=== PATIENT | male | born 1940 | race Caucasian/White ===

== ENCOUNTER 2021-03-13 19:45 | Inpatient (IN) | payer MEDICARE, BC ==
[~2021-03-13] VITALS: Ht 190.5 cm; Wt 97.1 kg
[2021-03-13 20:00] VITALS: BP 127/85
[2021-03-13] MEDS ORDERED: MAG HYDROX/AL HYDROX/SIMETH 30 ML ORAL.SUSP PO PRN (21:30)
[2021-03-13] MEDS ORDERED: ACETAMINOPHEN 325 MG TABLET PO PRN (21:30)
[2021-03-13] MEDS ORDERED: METHYL SALICYLATE/MENTHOL TOPICAL OINTMENT 57GM TUBE. TP PRN (21:30)
[2021-03-13] MEDS ORDERED: MAGNESIUM HYDROXIDE 2,400 MG/30 ML ORAL.SUSP. PO PRN (21:30)
[2021-03-13] MEDS ORDERED: QUEtiapine 50 MG TABLET. PO PRN (21:45)
[2021-03-13] MEDS ORDERED: FURO40TA4 PO ×2 (21:50)
[2021-03-13] MEDS ORDERED: TRAZ150T49 PO (21:50)
[2021-03-13] MEDS ORDERED: MAGN400T5 PO (21:50)
[2021-03-13] MEDS ORDERED: METO2.5T PO (21:50)
[2021-03-13] MEDS ORDERED: ALLO100T PO (21:50)
[2021-03-13] MEDS ORDERED: POLY2500 PO (21:50)
[2021-03-13] MEDS ORDERED: BUSP10TA PO (21:50)
[2021-03-13] MEDS ORDERED: TAMS0.4C97 PO (21:50)
[2021-03-13] MEDS ORDERED: POTA10TA5 PO (21:50)
[2021-03-13] MEDS ORDERED: METO25TA4 PO (21:50)
[2021-03-13] MEDS ORDERED: MELA3TAB30 PO (21:50)
[2021-03-13] MEDS ORDERED: RIVA20TA2 PO (21:50)
[2021-03-13] MEDS ORDERED: QUET50TA5 PO ×2 (21:50)
[2021-03-13] MEDS ORDERED: FINA5TAB4 PO (21:50)
[2021-03-13] MEDS ORDERED: QUET100T4 PO (21:50)
[2021-03-13] MEDS ORDERED: OMEP20TA63 PO (21:50)
--- NOTE | 2021-03-13 21:50 | PDOC ---
Exam Note: Kevin Note: Please also refer to the separate dictated note~for this date of service dictated separately.~Patient seen individually. Discussed the patient with Nursing staff reviewed the chart.~Reviewed interim history and current functioning. Reviewed vital signs,~Labs/ Radiology~and current medications noted below. Continue current treatment with the changes noted in the dictated addendum note Current Medications: I have reviewed the current psychotropics carefully including drug interactions. Risk benefit ratio favors no change other than as noted in my dictated progress note. Diagnosis: Problems: (1) Major neurocognitive disorder due to Alzheimer's disease RONALD MENJIVAR MD March 13, 2021 21:50
[2021-03-13] MEDS: busPIRone 10 MG TABLET. PO SCH (23:55)
[2021-03-13] MEDS: QUEtiapine 100 MG TABLET. PO SCH (23:55)
[2021-03-13] MEDS: traZODone 150 MG TABLET. PO SCH (23:55)
[2021-03-13] MEDS: MELATONIN 3 MG TABLET PO SCH (23:55)
--- NOTE | 2021-03-13 23:56 | NUR ---
Admission Note with Justification for Admission to [facility] Patient admitted to [facility] for protective oversight for emergency stabilization of acute psychiatric crisis. Pt admitted from: [facility] where he had been admitted for injuries from a fall that he had 03/07. Mode of arrival: EMS Accompanied By: EMS Precipitating behaviors that initiated intake and admission: it was reported that patient has been agitated, aggressive, combative with cares, sundowning, impulsive, has "poor safety" and refused medications and vital signs. Description of failure of out patient attempts at stabilization in previous setting list behavior and medication trials: Patient has been to ER and hospitalized.since 03/07 at [facility]. He had been started on medications and had a neuro consult. Behaviors and assessment findings upon admission: Patient arrived via EMS at 1945. He had been given PRN IM zyprexa 5mg x2 for agitation prior to leaving [facility] with EMS. EMS stated that he was calm for most of the ride, upon arrival he was eager to get off of the gurney and impatient with staff unbuckling seatbelts. He has a history of being impulsive and does not follow directions for asking for assistance, ambulation, etc. [facility] nurse stated that patient had been impulsive at times and was "hitting at" staff, he required almost constant redirection and will need placement at discharge from [facility]. He is incontinent of urine and bowel most of the time but at times and requires set up help with meals. Prior to [facility] admission patient had been residing at a memory care unit and had an unwitnessed fall on 03/07 and was unable to return to facility because he is "too aggressive". He fractured his L1-L3 transverse process. Nurse stated that it was a "non-surgical repair". Patient has a small bruise on the back of his right shoulder, a scratch on his right arm near the shoulder and his buttox is reddened but skin is intact. Upon arrival patient was calm, impulsive but somewhat cooperative. After vital signs were obtained patient sat in day room with staff and had a snack. He was cooperative with LEARNING PROGRAM MANAGER with HS cares. Patient is alert and oriented to self only, disorganized. According to report received from [facility], patient cannot use a walker as an ambulation aid because he "randomly sits down" whether a chair is present or not. We will use wheelchair at this time, PT/OT consults ordered. Plan: Admit for protective oversight for adjustment and stabilization of medications, behaviors and mood. Intense treatment regimen including groups, medication adjustments, therapy, consistent regimen for ADL's, self care, and sleep hygiene. Daily monitoring by Inpatient staff, Psychiatry, and Medical Physician.
--- NOTE | 2021-03-14 00:17 | NUR ---
Patient asleep when nurse went to administer HS meds. Meds held at this time, will administer if patient wakes up during the night. Patient has been disorganized, calm and somewhat impulsive. SHAREMILKER reported that he was cooperative with HS cares.
[2021-03-14] MEDS: QUEtiapine 50 MG TABLET. PO PRN ×2 (05:11→12:31)
--- NOTE | 2021-03-14 05:25 | NUR ---
Patient uncooperative, refusing EKG. lips tight saying "no no no". RN asked for RT to try later today. Informed RN that if day RT is unable to obtain during dayshift, I would try again tonight.
--- NOTE | 2021-03-14 05:26 | NUR ---
Patient uncooperative this morning and growled at resp therapy when they came to do EKG. They will reschedule for later today. PRN seroquel given in chocolate pudding in preparation for morning lab draw. Patient very resistive with meds in pudding, consumed about half and then knocked remainder out of nurses hand.
--- NOTE | 2021-03-14 06:06 | NUR ---
unable to obtain urine sample. Patient was incontinent of urine upon arrival last night and was incontinent of urine this morning before he got up. Patient assisted to toilet and was unable to void.
[2021-03-14 06:07] VITALS: BP 97/66
[2021-03-14] MEDS: busPIRone 10 MG TABLET. PO SCH ×3 (08:47→20:12)
[2021-03-14 11:02] LABS: ALBUMIN 3.6 g/dL (3.4-5.0); CALCIUM 9.7 mg/dL (8.5-10.1); GFR 72.1; MAGNESIUM 2.2 mg/dL (1.8-2.4); TOTAL BILIRUBIN 1.3 mg/dL (0.2-1.0); TOTAL PROTEIN 7.2 g/dL (6.4-8.2)
[2021-03-14 11:05] LABS: BASO # 0.1 x10^3/uL (0.0-0.2); BASO % 1 % (0-3); EOS # 0.1 x10^3/uL (0.0-0.7); EOS % 1 % (0-3); HEMOGLOBIN 15.1 g/dL (13.0-17.5); LYMPH # 1.9 x10^3/uL (1.0-4.8); LYMPH % 15 % (24-48); MEAN CORPUSCULAR HEMOGLOBIN 30 pg (25-35); MEAN CORPUSCULAR HGB CONC 33 g/dL (31-37); MEAN CORPUSCULAR VOLUME 90 fL (79-100); MONO # 0.8 x10^3/uL (0.0-1.1); MONO % 7 % (0-9); NEUT # 9.4 x10^3uL (1.8-7.7); NEUT % 76 % (31-73); PLATELET COUNT 191 x10^3/uL (140-400); RED BLOOD COUNT 5.11 x10^6/uL (4.30-5.70); RED CELL DISTRIBUTION WIDTH 16.3 % (11.5-14.5); WHITE BLOOD COUNT 12.4 x10^3/uL (4.0-11.0)
[2021-03-14 11:08] LABS: POTASSIUM 5.6 mmol/L (3.5-5.1)
[2021-03-14] MEDS: METOPROLOL TART IMMED RELEASE 25 MG TABLET. PO SCH ×2 (12:15→20:13)
[2021-03-14] MEDS: TAMSULOSIN 0.4 MG CAP.ER.24H. PO SCH (12:31)
[2021-03-14] MEDS: FUROSEMIDE 40 MG TABLET PO SCH (12:31)
[2021-03-14] MEDS: FINASTERIDE 5 MG TABLET. PO SCH (12:31)
[2021-03-14] MEDS: POLYETHYLENE GLYCOL 3350 17 GM PACKET. PO SCH (12:31)
[2021-03-14] MEDS: ALLOPURINOL 100 MG TABLET. PO SCH ×2 (12:31→20:13)
[2021-03-14 13:28] LABS: PLATELET CLUMP PRESENT; PLT ESTIMATE ADEQUATE (ADEQUATE)
[2021-03-14 14:35] LABS: THYROID STIM HORMONE (TSH) 1.605 uIU/mL (0.358-3.740)
[2021-03-14 15:49] VITALS: BP 117/76
[2021-03-14 16:04] LABS: ALBUMIN 3.7 g/dL (3.4-5.0); ALBUMIN/GLOBULIN RATIO 0.9 (1.0-1.7); CALCIUM 9.9 mg/dL (8.5-10.1); CREATININE 1.6 mg/dL (0.7-1.3); GFR 41.9; POTASSIUM 5.9 mmol/L (3.5-5.1); TOTAL PROTEIN 7.6 g/dL (6.4-8.2)
[2021-03-14] MEDS ORDERED: RIVAROXABAN 10 MG TABLET. PO SCH (17:00)
[2021-03-14] MEDS: RIVAROXABAN 10 MG TABLET. PO SCH (17:30)
--- NOTE | 2021-03-14 18:08 | NUR ---
Pt very disorganized, word salad unable to make out what he is sayin, alert and oriented to self only. Patient does not sit for a long time he is always on the go, intrusive walking in and out of others rooms, taking things off others tray and eating or drinking them. Patient non-compliant with meds crushed however he will drink liquids without difficulty but must be closely monitored because he will throw the liquids. Patient uncooperative with cares he is very resistive when being changed, unable to get urine sample today as patient is incont will have to put patient on a schedule to toilet but may be difficult because he will get combative with cares. Patient put on the list to see Dr Lund for lab values; WBC 12.4 potassium 5.9 creat 1.6 D. Dimer 1.18 bun/creat ratio 110. Patient vitals wnl of baseline however metoprolol was held due to pulse 56 checked 3 times as of now the pulse is 80. Per patient patient is a DNR the order is in the system and it states his DNR status on the living will. [facility] has a separate form to be signed by the patient and witness patient stated when she comes she will sign it. Patient does not really sit long enough to finish meals but he will take a few quick bites then he is back up on his feet. Patient does have a reddened area in between buttocks due to incont of bowel barrier cream applied. Will continue to monitor patient. Addendum: 03/14/21 at 1825 by SWETHA PHELAN RN new prn order for zyprexa 2.5mg PO prn Q2 hours as needed for agitation not to exceed 10mg in 24 hours.
[2021-03-14] MEDS: traZODone 150 MG TABLET. PO SCH (20:12)
[2021-03-14] MEDS: QUEtiapine 100 MG TABLET. PO SCH (20:12)
[2021-03-14] MEDS: MELATONIN 3 MG TABLET PO SCH (20:12)
--- NOTE | 2021-03-14 20:55 | NUR ---
Patient would not go to room for EKG. RT managed to get patient to sit in chair, in day room but patient would not let shirt be raised. Patient then grabbed RT's hand and began squeezing. RT was able to get hand away before injured. Patient then began grabbing at wires and pulling them. RT decided to abort trying to obtain EKG before machine or self was injured. Notified patient's RN on situation, RN agreed to not try again at this time.
--- NOTE | 2021-03-14 21:00 | NUR ---
Patient is impulsive and intrusive, wandering and restless in the day room this evening. He is disorganized and very hard to verbally redirect as he has a very short attention span. Patient very resistive with HS medications which were provided crushed in apple juice. Nurse eventually gave patient a salty snack then provided applejuice with meds which he drank. RT was not able to perform admission EKG as patient became agitated when she attempted to remove his shirt to place leads.
--- NOTE | 2021-03-14 21:16 | NUR ---
According to medical record from [facility] patient had UA on 03/12 prior to admit and results were WNL.
--- NOTE | 2021-03-14 21:34 | CONS ---
DATE OF CONSULTATION: 03/14/2021 ATTENDING PHYSICIAN: Dr. Villalobos. We are asked to see this patient for medical consultation. HISTORY OF PRESENT ILLNESS: The patient is a 80-year-old gentleman who is at a halfway home in [place]. He is profoundly demented. He is rambling. He has been agitated, aggressive, combative at times, impulsive and refuses medications, and vital signs. He was sent here for further treatment and evaluation. PAST MEDICAL HISTORY: Significant for Alzheimer's dementia, chronic atrial fibrillation, permanent pacemaker, urinary retention, hypertension, vitamin D deficiency, hyperlipidemia, L1-L2 compression fracture, sleep apnea. ALLERGIES: He has no known drug allergies. CURRENT MEDICATIONS: Include albuterol, BuSpar, finasteride, Lasix daily, magnesium oxide, melatonin, metolazone, metoprolol, omeprazole, MiraLax, potassium, Seroquel, Xarelto 20 mg daily, Flomax and trazodone. SOCIAL HISTORY: He is a nonsmoker, nondrinker. 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 He has been a detention resident. FAMILY HISTORY: Unobtainable. REVIEW OF SYSTEMS: Entirely unobtainable. The patient unfortunately has no ability to communicate. PHYSICAL EXAMINATION: GENERAL: When I saw him, this is an elderly gentleman who is profoundly demented. INITIAL VITAL SIGNS: Showed a blood pressure of 127/85 mmHg. He is afebrile. Oxygen saturation 95% on room air. HEENT: Head is without trauma. Pupils are reactive. Sclerae nonicteric. Oropharynx is clear. NECK: Supple. LUNGS: Good breath sounds. CARDIOVASCULAR: Showed regular heart tones. No gallops. ABDOMEN: Soft. EXTREMITIES: Show trace edema of the lower extremities. There is some degenerative arthritis of the knees. He is ambulatory. There is no gait disturbance. NEUROLOGIC: Profoundly confused, unable to do a full neurologic exam due to the patient's dementia. PERTINENT LABORATORY STUDIES: Pending at this time. Most recently a week ago, he had normal electrolytes. Creatinine was 1.0 mg/dL. He had an echo in 2019 showing ejection fraction 60%. ASSESSMENT: 1. This 80-year-old gentleman with profound dementia. 2. Old cerebrovascular accident. 3. Permanent pacemaker. 4. Paroxysmal atrial fibrillation. 5. Essential hypertension. 6. Degenerative arthritis. 7. History of sleep apnea. RECOMMENDATIONS: 1. This patient is stable from a medical standpoint. 2. I have reviewed his medications. We should continue the same dosage. 3. I will await results of the lab test and review them. Thank you again for asking us to see the patient for medical consultation. We shall gladly follow along closely during his inpatient stay. DERIC DR: Dipti TID: [id number]
--- NOTE | 2021-03-14 22:15 | PDOC ---
Exam Note: Kevin Note: Please also refer to the separate dictated note~for this date of service dictated separately.~Patient seen individually. Discussed the patient with Nursing staff reviewed the chart.~Reviewed interim history and current functioning. Reviewed vital signs,~Labs/ Radiology~and current medications noted below. Continue current treatment with the changes noted in the dictated addendum note Assessment: Vital Signs/I&O: Vital Signs Date Time Temp Pulse Resp B/P (MAP) Pulse Ox O2 Delivery O2 Flow Rate FiO2 03/14/21 20:13 80 117/76 03/14/21 15:49 98.0 20 97 03/14/21 06:07 Room Air Labs: Laboratory Tests Test 03/14/21 10:20 03/14/21 15:25 White Blood Count 12.4 x10^3/uL (4.0-11.0) H Red Blood Count 5.11 x10^6/uL (4.30-5.70) Hemoglobin 15.1 g/dL (13.0-17.5) Hematocrit 46.0 % (39.0-53.0) Mean Corpuscular Volume 90 fL (79-100) Mean Corpuscular Hemoglobin 30 pg (25-35) Mean Corpuscular Hemoglobin Concent 33 g/dL (31-37) Red Cell Distribution Width 16.3 % (11.5-14.5) H Platelet Count 191 x10^3/uL (140-400) Neutrophils (%) (Auto) 76 % (31-73) H Lymphocytes (%) (Auto) 15 % (24-48) L Monocytes (%) (Auto) 7 % (0-9) Eosinophils (%) (Auto) 1 % (0-3) Basophils (%) (Auto) 1 % (0-3) Neutrophils # (Auto) 9.4 x10^3uL (1.8-7.7) H Lymphocytes # (Auto) 1.9 x10^3/uL (1.0-4.8) Monocytes # (Auto) 0.8 x10^3/uL (0.0-1.1) Eosinophils # (Auto) 0.1 x10^3/uL (0.0-0.7) Basophils # (Auto) 0.1 x10^3/uL (0.0-0.2) Platelet Estimate Adequate (ADEQUATE) Platelet Clumps, EDTA Present Giant Platelets Present Sodium Level 147 mmol/L (136-145) H 145 mmol/L (136-145) Potassium Level 5.6 mmol/L (3.5-5.1) H 5.9 mmol/L (3.5-5.1) H Chloride Level 109 mmol/L (98-107) H 109 mmol/L (98-107) H Carbon Dioxide Level 25 mmol/L (21-32) 25 mmol/L (21-32) Anion Gap 13 (6-14) 11 (6-14) Blood Urea Nitrogen 14 mg/dL (8-26) 18 mg/dL (8-26) Creatinine 1.0 mg/dL (0.7-1.3) 1.6 mg/dL (0.7-1.3) H Estimated GFR (Cockcroft-Gault) 72.1 41.9 BUN/Creatinine Ratio 14 (6-20) 11 (6-20) Glucose Level 150 mg/dL (70-99) H 110 mg/dL (70-99) H Calcium Level 9.7 mg/dL (8.5-10.1) 9.9 mg/dL (8.5-10.1) Magnesium Level 2.2 mg/dL (1.8-2.4) Iron Level 66 ug/dL (65-175) Total Iron Binding Capacity 208 ug/dL (250-450) L Iron Saturation 32 % (15-34) Total Bilirubin 1.3 mg/dL (0.2-1.0) H 1.0 mg/dL (0.2-1.0) Aspartate Amino Transferase (AST) 36 U/L (15-37) 26 U/L (15-37) Alanine Aminotransferase (ALT) 46 U/L (16-63) 44 U/L (16-63) Alkaline Phosphatase 34 U/L (46-116) L 35 U/L (46-116) L Total Protein 7.2 g/dL (6.4-8.2) 7.6 g/dL (6.4-8.2) Albumin 3.6 g/dL (3.4-5.0) 3.7 g/dL (3.4-5.0) Albumin/Globulin Ratio 1.0 (1.0-1.7) 0.9 (1.0-1.7) L Triglycerides Level 94 mg/dL (0-150) Cholesterol Level 183 mg/dL (0-200) LDL Cholesterol, Calculated 123 mg/dL (0-100) H VLDL Cholesterol, Calculated 18 mg/dL (0-40) Non-HDL Cholesterol Calculated 141 mg/dL (0-129) H HDL Cholesterol 42 mg/dL (40-60) Cholesterol/HDL Ratio 4.0 Thyroid Stimulating Hormone (TSH) 1.605 uIU/mL (0.358-3.740) D-Dimer (Domonique) 1.18 mg/L (0.00-0.50) H Current Medications: Meds: Laboratory Tests Test 03/14/21 10:20 03/14/21 15:25 White Blood Count 12.4 x10^3/uL Red Blood Count 5.11 x10^6/uL Hemoglobin 15.1 g/dL Hematocrit 46.0 % Mean Corpuscular Volume 90 fL Mean Corpuscular Hemoglobin 30 pg Mean Corpuscular Hemoglobin Concent 33 g/dL Red Cell Distribution Width 16.3 % Platelet Count 191 x10^3/uL Neutrophils (%) (Auto) 76 % Lymphocytes (%) (Auto) 15 % Monocytes (%) (Auto) 7 % Eosinophils (%) (Auto) 1 % Basophils (%) (Auto) 1 % Neutrophils # (Auto) 9.4 x10^3uL Lymphocytes # (Auto) 1.9 x10^3/uL Monocytes # (Auto) 0.8 x10^3/uL Eosinophils # (Auto) 0.1 x10^3/uL Basophils # (Auto) 0.1 x10^3/uL Platelet Estimate Adequate Platelet Clumps, EDTA Present Giant Platelets Present Sodium Level 147 mmol/L 145 mmol/L Potassium Level 5.6 mmol/L 5.9 mmol/L Chloride Level 109 mmol/L 109 mmol/L Carbon Dioxide Level 25 mmol/L 25 mmol/L Anion Gap 13 11 Blood Urea Nitrogen 14 mg/dL 18 mg/dL Creatinine 1.0 mg/dL 1.6 mg/dL Estimated GFR (Cockcroft-Gault) 72.1 41.9 BUN/Creatinine Ratio 14 11 Glucose Level 150 mg/dL 110 mg/dL Calcium Level 9.7 mg/dL 9.9 mg/dL Magnesium Level 2.2 mg/dL Iron Level 66 ug/dL Total Iron Binding Capacity 208 ug/dL Iron Saturation 32 % Total Bilirubin 1.3 mg/dL 1.0 mg/dL Aspartate Amino Transf (AST/SGOT) 36 U/L 26 U/L Alanine Aminotransferase (ALT/SGPT) 46 U/L 44 U/L Alkaline Phosphatase 34 U/L 35 U/L Total Protein 7.2 g/dL 7.6 g/dL Albumin 3.6 g/dL 3.7 g/dL Albumin/Globulin Ratio 1.0 0.9 Triglycerides Level 94 mg/dL Cholesterol Level 183 mg/dL LDL Cholesterol, Calculated 123 mg/dL VLDL Cholesterol, Calculated 18 mg/dL Non-HDL Cholesterol Calculated 141 mg/dL HDL Cholesterol 42 mg/dL Cholesterol/HDL Ratio 4.0 Thyroid Stimulating Hormone (TSH) 1.605 uIU/mL D-Dimer (Domonique) 1.18 mg/L Current Medications Medications (Trade) Dose Ordered Sig/Crista Route PRN Reason Start Time Stop Time Status Last Admin Dose Admin Acetaminophen (Tylenol) 650 mg PRN Q6HRS PRN PO MILD PAIN / TEMP > 100.3'F 03/13/21 21:30 Multi-Ingredient Ointment (Analgesic Trinity) 1 mikala PRN QID PRN TP MUSCLE PAIN 03/13/21 21:30 Al Hydroxide/Mg Hydroxide (Mylanta Plus Xs) 15 ml PRN AFTMEALHC PRN PO DYSPEPSIA 03/13/21 21:30 Magnesium Hydroxide (Milk Of Magnesia) 2,400 mg PRN QHS PRN PO CONSTIPATION 03/13/21 21:30 Buspirone HCl (Buspar) 10 mg TID PO 03/13/21 22:15 03/14/21 20:12 Quetiapine Fumarate (SEROquel) 50 mg PRN DAILY PRN PO prior to lab draws 03/13/21 21:45 03/14/21 12:31 Quetiapine Fumarate (SEROquel) 50 mg PRN Q6HRS PRN PO AGITATION 03/13/21 21:45 Quetiapine Fumarate (SEROquel) 100 mg HS PO 03/13/21 22:15 03/14/21 20:12 Trazodone HCl (Desyrel) 150 mg HS PO 03/13/21 22:15 03/14/21 20:12 Melatonin (Melatonin) 6 mg HS PO 03/13/21 22:15 03/14/21 20:12 Allopurinol (Zyloprim) 100 mg BID PO 03/14/21 12:15 03/14/21 20:13 Finasteride (Proscar) 5 mg DAILY PO 03/14/21 12:15 03/14/21 12:31 Furosemide (Lasix) 40 mg DAILY PO 03/14/21 12:15 03/14/21 12:31 Metoprolol Tartrate (Lopressor) 25 mg BID PO 03/14/21 12:15 03/14/21 20:13 Tamsulosin HCl (Flomax) 0.4 mg DAILY PO 03/14/21 12:15 03/14/21 12:31 Pantoprazole Sodium (Protonix) 40 mg DAILYAC PO 03/15/21 07:30 Polyethylene Glycol (miraLAX) 17 gm DAILY PO 03/14/21 12:00 03/14/21 12:31 Non-Formulary Medication (Potassium Chloride (Klor-Con 10)) 30 meq DAILY PO 03/15/21 09:00 UNV Rivaroxaban (Xarelto) 20 mg DAILYBFRSUP PO 03/14/21 17:00 03/14/21 17:30 DC Rivaroxaban (Xarelto) 20 mg DAILYBFRSUP PO 03/14/21 17:30 03/14/21 17:30 Olanzapine (ZyPREXA ZYDIS) 2.5 mg PRN Q2HR PRN PO PSYCHOSIS 03/14/21 18:45 Current Medications Medications (Trade) Dose Ordered Sig/Crista Route PRN Reason Start Time Stop Time Status Last Admin Dose Admin Allopurinol (Zyloprim) 100 mg BID PO 03/14/21 12:15 03/14/21 20:13 Finasteride (Proscar) 5 mg DAILY PO 03/14/21 12:15 03/14/21 12:31 Furosemide (Lasix) 40 mg DAILY PO 03/14/21 12:15 03/14/21 12:31 Metoprolol Tartrate (Lopressor) 25 mg BID PO 03/14/21 12:15 03/14/21 20:13 Tamsulosin HCl (Flomax) 0.4 mg DAILY PO 03/14/21 12:15 03/14/21 12:31 Polyethylene Glycol (miraLAX) 17 gm DAILY PO 03/14/21 12:00 03/14/21 12:31 Rivaroxaban (Xarelto) 20 mg DAILYBFRSUP PO 03/14/21 17:30 03/14/21 17:30 I have reviewed the current psychotropics carefully including drug interactions. Risk benefit ratio favors no change other than as noted in my dictated progress note. Diagnosis: Problems: (1) Major neurocognitive disorder due to Alzheimer's disease RONALD MENJIVAR MD March 14, 2021 22:15
--- NOTE | 2021-03-14 23:40 | HP ---
ADMIT DATE: 03/13/2021 PSYCHIATRIC ADMISSION HISTORY/EVALUATION This is a late entry date of service 03/13/2021, covers elements not covered in my initial note for 03/13/2021. I met with the patient the evening of 03/13/2021. IDENTIFYING DATA: The patient is a 80-year-old male referred to us from [facility] by his primary care physician on account of worsening confusion and agitation. He has been agitated, aggressive, combative with cares. He has significant sundowning and impulsive with poor safety awareness, refusing medications and vital signs. The patient's behaviors have been deemed dangerous, unmanageable at the facility, has failed outpatient psychiatric interventions resulting in this referral. CHIEF COMPLAINT: "We will go there." The patient is completely disorganized, confused. HISTORY OF PRESENT ILLNESS: The patient has a history of dementia, Alzheimer's, vascular type. He has been residing at the above facility for some time. Recently, he has been getting more agitated, aggressive, disruptive, labile in his mood, difficult to redirect. He has had sleep and appetite changes, paranoia. No active suicidal or homicidal ideation. PAST PSYCHIATRIC HISTORY: As above. MEDICAL HISTORY: Diverticulitis, benign prostatic hypertrophy, atrial fibrillation, urinary retention, hypertension, vitamin D deficiency, hyperlipidemia, lumbar 1-3 fracture, pacemaker in place, sleep apnea, history of repeated falls. ACCU-CHEKS: None. ALLERGIES: Negative. CODE STATUS: DNR. DIET: Regular. Takes medications crushed in chocolate pudding. Ambulates wheelchair, very unsteady, history of falls. UA needs to be collected. Since admission, the patient has refused his EKG, is resistive with medications in pudding, but does like to drink, so offered in drink. He is intrusive, wandering. Speech is word salad, disorganized, confused, very touching and grabbing at others, resistive with cares. Impulsive, standing up, unsteady gait, incontinent, unable to void for urine sample. CURRENT PSYCHOTROPICS: BuSpar 10 mg t.i.d., melatonin 5 mg at bedtime, Seroquel 100 mg at bedtime, trazodone 150 mg at bedtime, Seroquel 50 mg p.r.n. for lab draws and 50 mg q. 6 hours p.r.n. psychosis and agitation. FAMILY HISTORY: Noncontributory. SOCIAL HISTORY: No history of alcohol, drug abuse, physical, sexual or elder abuse. He is not known to be a perpetrator. REACTION TO HOSPITALIZATION: The patient is oblivious of this. ASSETS: Supportive, living at the above facility, supportive family. REVIEW OF SYSTEMS: No CV, , pulmonary, eye, ENT system symptoms on review. Reliability poor. MENTAL STATUS EXAMINATION: Oriented to himself. Insight, judgment, recent and remote memory, attention, concentration, fund of knowledge poor consistent with his diagnosis. ASSESSMENT: Major neurocognitive disorder; Alzheimer, vascular with delusion; depression, behavioral disturbance; anxiety disorder, unspecified; impulse control disorder, unspecified. Rest as above. PLAN: Admit to Geropsychiatry Unit at [facility]. I will see the patient daily individually from a psychiatric standpoint. Medical followup with Dr. Lund. Continue patient on his current psychotropics, observe baseline, and make further adjustments as clinically indicated. I will see him daily individually. Estimated length of stay 10-12 days. DISPOSITION: Plans back to long-term when stable. TALIB/MANOJ DR: Nazario TID: [id number]
[2021-03-15 01:07] LABS: THYROXINE 5.4 ug/dL (4.5-12.0)
[2021-03-15 05:32] VITALS: BP 107/70
[2021-03-15 05:38] LABS: HEMOGLOBIN A1C 5.4 % (4.8-5.6)
[2021-03-15] MEDS: POLYETHYLENE GLYCOL 3350 17 GM PACKET. PO SCH (08:00)
[2021-03-15] MEDS: busPIRone 10 MG TABLET. PO SCH ×3 (08:00→20:15)
[2021-03-15] MEDS: TAMSULOSIN 0.4 MG CAP.ER.24H. PO SCH (08:00)
[2021-03-15] MEDS: FUROSEMIDE 40 MG TABLET PO SCH (08:01)
[2021-03-15] MEDS: PANTOPRAZOLE 40 MG TABLET. PO SCH (08:01)
[2021-03-15] MEDS: METOPROLOL TART IMMED RELEASE 25 MG TABLET. PO SCH ×2 (08:01→20:16)
[2021-03-15] MEDS: FINASTERIDE 5 MG TABLET. PO SCH (08:01)
[2021-03-15] MEDS: ALLOPURINOL 100 MG TABLET. PO SCH ×2 (08:01→20:16)
[2021-03-15] MEDS ORDERED: POTASSIUM CHLORIDE 30 MEQ PO SCH (09:00)
[2021-03-15] MEDS: QUEtiapine 50 MG TABLET. PO PRN (14:02)
[2021-03-15 15:41] VITALS: BP 106/68
--- NOTE | 2021-03-15 16:42 | NUR ---
Pt continues to wander the unit very intrusive with personal space touches and grabs at others. Several staff members attempted to redirect patient verbally as well as attempted to distract patient but all attempts failed patient became more agitated and begin to pace unable to stay seated for meals or cares, patient was given prn zydis as well as seroquel today which was slightly effective calmed patient down shortly. Patient seems to have an appetite however his ability to sit and concentrate on finishing his meal is very short. Patient eats bits and pieces of meal then he is up wandering the unit. Patient vitals stable and wnl of baseline alert to self only speaks in word salad unable to understand patient. Patient called today to get an update she gave the password and update was given. Patient has no complaints of pain or discomfort to report will continue to monitor patient. Addendum: 03/15/21 at 1813 by SWETHA PHELAN RN Dr Villalobos gave telephone orders for divalproex sprinkles 125mg PO bid 0900 and 1700 to start a dose tonight then cbc cmp and vpa level in 3 days zoloft 50mg PO every morning.
[2021-03-15] MEDS: RIVAROXABAN 10 MG TABLET. PO SCH (17:00)
[2021-03-15] MEDS: QUEtiapine 100 MG TABLET. PO SCH (20:15)
[2021-03-15] MEDS: traZODone 150 MG TABLET. PO SCH (20:15)
[2021-03-15] MEDS: DIVALPROEX 125 MG CAP.SPRINK PO SCH (20:15)
[2021-03-15] MEDS: MELATONIN 3 MG TABLET PO SCH (20:16)
--- NOTE | 2021-03-15 22:12 | PDOC ---
Exam Note: Kevin Note: Please also refer to the separate dictated note~for this date of service dictated separately.~Patient seen individually. Discussed the patient with Nursing staff reviewed the chart.~Reviewed interim history and current functioning. Reviewed vital signs,~Labs/ Radiology~and current medications noted below. Continue current treatment with the changes noted in the dictated addendum note Assessment: Vital Signs/I&O: Vital Signs Date Time Temp Pulse Resp B/P (MAP) Pulse Ox O2 Delivery O2 Flow Rate FiO2 03/15/21 20:16 76 106/68 03/15/21 15:41 97.8 20 99 03/14/21 06:07 Room Air I & O 03/14/21 03/14/21 03/15/21 15:00 23:00 07:00 Intake Total 490 ml 240 ml Balance 490 ml 240 ml Current Medications: Meds: Current Medications Medications (Trade) Dose Ordered Sig/Crista Route PRN Reason Start Time Stop Time Status Last Admin Dose Admin Acetaminophen (Tylenol) 650 mg PRN Q6HRS PRN PO MILD PAIN / TEMP > 100.3'F 03/13/21 21:30 Multi-Ingredient Ointment (Analgesic [place]) 1 mikala PRN QID PRN TP MUSCLE PAIN 03/13/21 21:30 Al Hydroxide/Mg Hydroxide (Mylanta Plus Xs) 15 ml PRN AFTMEALHC PRN PO DYSPEPSIA 03/13/21 21:30 Magnesium Hydroxide (Milk Of Magnesia) 2,400 mg PRN QHS PRN PO CONSTIPATION 03/13/21 21:30 Buspirone HCl (Buspar) 10 mg TID PO 03/13/21 22:15 03/15/21 20:15 Quetiapine Fumarate (SEROquel) 50 mg PRN DAILY PRN PO prior to lab draws 03/13/21 21:45 03/15/21 14:02 Quetiapine Fumarate (SEROquel) 50 mg PRN Q6HRS PRN PO AGITATION 03/13/21 21:45 Quetiapine Fumarate (SEROquel) 100 mg HS PO 03/13/21 22:15 03/15/21 20:15 Trazodone HCl (Desyrel) 150 mg HS PO 03/13/21 22:15 03/15/21 20:15 Melatonin (Melatonin) 6 mg HS PO 03/13/21 22:15 03/15/21 20:16 Allopurinol (Zyloprim) 100 mg BID PO 03/14/21 12:15 03/15/21 20:16 Finasteride (Proscar) 5 mg DAILY PO 03/14/21 12:15 03/15/21 08:01 Furosemide (Lasix) 40 mg DAILY PO 03/14/21 12:15 03/15/21 08:01 Metoprolol Tartrate (Lopressor) 25 mg BID PO 03/14/21 12:15 03/15/21 20:16 Tamsulosin HCl (Flomax) 0.4 mg DAILY PO 03/14/21 12:15 03/15/21 08:00 Pantoprazole Sodium (Protonix) 40 mg DAILYAC PO 03/15/21 07:30 03/15/21 08:01 Polyethylene Glycol (miraLAX) 17 gm DAILY PO 03/14/21 12:00 03/15/21 08:00 Non-Formulary Medication (Potassium Chloride (Klor-Con 10)) 30 meq DAILY PO 03/15/21 09:00 03/15/21 10:26 DC Rivaroxaban (Xarelto) 20 mg DAILYBFRSUP PO 03/14/21 17:00 03/14/21 17:30 DC Rivaroxaban (Xarelto) 20 mg DAILYBFRSUP PO 03/14/21 17:30 03/15/21 17:00 Olanzapine (ZyPREXA ZYDIS) 2.5 mg PRN Q2HR PRN PO PSYCHOSIS 03/14/21 18:45 03/15/21 12:18 Divalproex Sodium (Depakote Sprinkles) 125 mg BID@0900,1700 PO 03/15/21 21:00 03/15/21 20:15 Sertraline HCl (Zoloft) 50 mg DAILY PO 03/16/21 09:00 Current Medications Medications (Trade) Dose Ordered Sig/Crista Route PRN Reason Start Time Stop Time Status Last Admin Dose Admin Pantoprazole Sodium (Protonix) 40 mg DAILYAC PO 03/15/21 07:30 03/15/21 08:01 Divalproex Sodium (Depakote Sprinkles) 125 mg BID@0900,1700 PO 03/15/21 21:00 5/30/21 20:15 I have reviewed the current psychotropics carefully including drug interactions. Risk benefit ratio favors no change other than as noted in my dictated progress note. Diagnosis: Problems: (1) Dementia in Alzheimer's disease with delusions (2) Dementia in Alzheimer's disease with depression (3) Dementia, vascular, with delusions (4) Dementia, vascular, with depression (5) Anxiety disorder, unspecified (6) Impulse control disorder, unspecified (7) Major neurocognitive disorder (8) Dementia of the Alzheimer's type with early onset with behavioral disturbance RONALD MENJIVAR MD March 15, 2021 22:12
[2021-03-16 06:21] VITALS: BP 89/56
--- NOTE | 2021-03-16 07:11 | PDOC ---
Exam Note: Kevin Note: This note is a late entry for 03/15/2021 covers elements not covered in my initial note. Subjective: The patient was seen individually in the evening of 03/15/2021 with Fransico BIRMINGHAM, discussed and reviewed the chart. The patient slept 6 hours previous night. He remains anxious, restless, agitated with cares and showers. He has been aggressive, paranoid, difficult to redirect. Received Zyprexa p.r.n. x2 and Seroquel x1. Review of Systems: Ambulation impaired in wheelchair. No CV, , pulmonary, eye, ENT system symptoms on review. Reliability poor. Mental Status Exam: The patient is oriented to himself. Insight and judgment, recent and remote memory, attention and concentration, fund of knowledge is poor consistent with his diagnoses. Laboratory Data: Reviewed. Impression: Major neurocognitive disorder Alzheimer vascular with delusion, depression, behavioral disturbance. Anxiety disorder unspecified. Impulse control disorder unspecified. Plan: Continue current psychotropics. Start Depakote Sprinkle 125 mg 9 a.m. and 5 p.m. Check CBC, CMP, valproic acid level in 3 days. Start Zoloft 50 mg a day for his mood and anxiety symptoms. Adjust further as clinically indicated. Assessment: Vital Signs/I&O: Vital Signs Date Time Temp Pulse Resp B/P (MAP) Pulse Ox O2 Delivery O2 Flow Rate FiO2 03/16/21 06:21 97.7 80 16 89/56 (67) 100 03/14/21 06:07 Room Air I & O 03/15/21 03/15/21 03/16/21 15:00 23:00 07:00 Intake Total 600 ml 240 ml Balance 600 ml 240 ml Current Medications: Meds: Current Medications Medications (Trade) Dose Ordered Sig/Crista Route PRN Reason Start Time Stop Time Status Last Admin Dose Admin Acetaminophen (Tylenol) 650 mg PRN Q6HRS PRN PO MILD PAIN / TEMP > 100.3'F 03/13/21 21:30 Multi-Ingredient Ointment (Analgesic [place]) 1 mikala PRN QID PRN TP MUSCLE PAIN 03/13/21 21:30 Al Hydroxide/Mg Hydroxide (Mylanta Plus Xs) 15 ml PRN AFTMEALHC PRN PO DYSPEPSIA 03/13/21 21:30 Magnesium Hydroxide (Milk Of Magnesia) 2,400 mg PRN QHS PRN PO CONSTIPATION 03/13/21 21:30 Buspirone HCl (Buspar) 10 mg TID PO 03/13/21 22:15 03/15/21 20:15 Quetiapine Fumarate (SEROquel) 50 mg PRN DAILY PRN PO prior to lab draws 03/13/21 21:45 03/15/21 14:02 Quetiapine Fumarate (SEROquel) 50 mg PRN Q6HRS PRN PO AGITATION 03/13/21 21:45 Quetiapine Fumarate (SEROquel) 100 mg HS PO 03/13/21 22:15 03/15/21 20:15 Trazodone HCl (Desyrel) 150 mg HS PO 03/13/21 22:15 03/15/21 20:15 Melatonin (Melatonin) 6 mg HS PO 03/13/21 22:15 03/15/21 20:16 Allopurinol (Zyloprim) 100 mg BID PO 03/14/21 12:15 03/15/21 20:16 Finasteride (Proscar) 5 mg DAILY PO 03/14/21 12:15 03/15/21 08:01 Furosemide (Lasix) 40 mg DAILY PO 03/14/21 12:15 03/15/21 08:01 Metoprolol Tartrate (Lopressor) 25 mg BID PO 03/14/21 12:15 03/15/21 20:16 Tamsulosin HCl (Flomax) 0.4 mg DAILY PO 03/14/21 12:15 03/15/21 08:00 Pantoprazole Sodium (Protonix) 40 mg DAILYAC PO 03/15/21 07:30 03/15/21 08:01 Polyethylene Glycol (miraLAX) 17 gm DAILY PO 03/14/21 12:00 03/15/21 08:00 Non-Formulary Medication (Potassium Chloride (Klor-Con 10)) 30 meq DAILY PO 03/15/21 09:00 03/15/21 10:26 DC Rivaroxaban (Xarelto) 20 mg DAILYBFRSUP PO 03/14/21 17:00 03/14/21 17:30 DC Rivaroxaban (Xarelto) 20 mg DAILYBFRSUP PO 03/14/21 17:30 03/15/21 17:00 Olanzapine (ZyPREXA ZYDIS) 2.5 mg PRN Q2HR PRN PO PSYCHOSIS 03/14/21 18:45 03/15/21 12:18 Divalproex Sodium (Depakote Sprinkles) 125 mg BID@0900,1700 PO 03/15/21 21:00 03/15/21 20:15 Sertraline HCl (Zoloft) 50 mg DAILY PO 03/16/21 09:00 Current Medications Medications (Trade) Dose Ordered Sig/Crista Route PRN Reason Start Time Stop Time Status Last Admin Dose Admin Pantoprazole Sodium (Protonix) 40 mg DAILYAC PO 03/15/21 07:30 03/15/21 08:01 Divalproex Sodium (Depakote Sprinkles) 125 mg BID@0900,1700 PO 03/15/21 21:00 03/15/21 20:15 I have reviewed the current psychotropics carefully including drug interactions. Risk benefit ratio favors no change other than as noted in my dictated progress note. 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
[2021-03-16] MEDS: POLYETHYLENE GLYCOL 3350 17 GM PACKET. PO SCH (08:47)
[2021-03-16] MEDS: busPIRone 10 MG TABLET. PO SCH ×3 (08:48→19:31)
[2021-03-16] MEDS: FINASTERIDE 5 MG TABLET. PO SCH (08:48)
[2021-03-16] MEDS: DIVALPROEX 125 MG CAP.SPRINK PO SCH ×2 (08:48→17:27)
[2021-03-16] MEDS: PANTOPRAZOLE 40 MG TABLET. PO SCH (08:48)
[2021-03-16] MEDS: METOPROLOL TART IMMED RELEASE 25 MG TABLET. PO SCH ×3 (08:48→20:36)
[2021-03-16] MEDS: ALLOPURINOL 100 MG TABLET. PO SCH ×2 (08:48→19:31)
[2021-03-16] MEDS: SERTRALINE 50 MG TABLET. PO SCH (08:48)
[2021-03-16] MEDS: TAMSULOSIN 0.4 MG CAP.ER.24H. PO SCH (08:48)
[2021-03-16] MEDS: FUROSEMIDE 40 MG TABLET PO SCH (09:00)
--- NOTE | 2021-03-16 10:30 | NUR ---
ACTIVITY THERAPY ASSESSMENT completed based on notes, observation and interview. Pt was wandering in the hallway. Pt was unable to answer assessment questions and talked in word salad. Pt is intrusive and impulsive at times. Pt attended an Activity Therapy group and wandered the entire time and was intrusive as he kept grabbing AT's arm. Per notes pt is resistive with medications and cares. Pt growled at staff when trying to get an EKG. Pt requires a lot of redirection and prompting. Initial goal aimed to increase engagement and relaxation skills. Pt will participate in at least three individual or group Activity Therapy sessions before discharge. Addendum: 03/30/21 at 1323 by MOHAMUD DOLAN ACT 03/30-repeat goal
[2021-03-16 16:03] VITALS: BP 120/61
[2021-03-16] MEDS: RIVAROXABAN 10 MG TABLET. PO SCH (17:27)
--- NOTE | 2021-03-16 17:30 | NUR ---
NSG NOTE; PT CONT TO WANDER THE HALLS, GOING INTO OTHER PT'S ROOMS. HE IS RESISTIVE TO CARES AND REDIRECTION. HE DID NOT SIT DOWN FOR A MEAL AND ANY ATTEMPT TO HAND HIM FOOD RESULTING IN HIM JUST WANDERING AWAY AND PUTTING THE FOOD DOWN. HE WOULD TAKE DRINKS OFF OF OTHER PEER'S TRAYS RESULTING IN HIM BEING REMOVED FROM THE DINING ROOM AT [facility]. HE HAS DRANK A LOT OF FLUIDS TODAY WHEN WE JUST HOLD UP A GLASS WITHOUT FORCING IT ON HIM. HE TOUCHES PEOPLE CONSTANTLY BUT NOT IN A SEXUAL MANNER. HE TALKS GIBBERISH AND CANNOT TELL ME HIS NAME. HE DOES NOT FOLLOW DIRECTIONS
[2021-03-16] MEDS: traZODone 150 MG TABLET. PO SCH (19:30)
[2021-03-16] MEDS: MELATONIN 3 MG TABLET PO SCH (19:30)
[2021-03-16] MEDS: QUEtiapine 100 MG TABLET. PO SCH (19:31)
[2021-03-16 20:35] VITALS: BP 95/54
--- NOTE | 2021-03-16 22:24 | PDOC ---
Exam Note: Kevin Note: Please also refer to the separate dictated note~for this date of service dictated separately.~Patient seen individually. Discussed the patient with Nursing staff reviewed the chart.~Reviewed interim history and current functioning. Reviewed vital signs,~Labs/ Radiology~and current medications noted below. Continue current treatment with the changes noted in the dictated addendum note Assessment: Vital Signs/I&O: Vital Signs Date Time Temp Pulse Resp B/P (MAP) Pulse Ox O2 Delivery O2 Flow Rate FiO2 03/16/21 20:36 84 95/54 03/16/21 16:03 97.5 20 95 03/14/21 06:07 Room Air I & O 03/15/21 03/15/21 03/16/21 15:00 23:00 07:00 Intake Total 600 ml 240 ml Balance 600 ml 240 ml Current Medications: Meds: Current Medications Medications (Trade) Dose Ordered Sig/Crista Route PRN Reason Start Time Stop Time Status Last Admin Dose Admin Acetaminophen (Tylenol) 650 mg PRN Q6HRS PRN PO MILD PAIN / TEMP > 100.3'F 03/13/21 21:30 Multi-Ingredient Ointment (Analgesic [place]) 1 mikala PRN QID PRN TP MUSCLE PAIN 03/13/21 21:30 Al Hydroxide/Mg Hydroxide (Mylanta Plus Xs) 15 ml PRN AFTMEALHC PRN PO DYSPEPSIA 03/13/21 21:30 Magnesium Hydroxide (Milk Of Magnesia) 2,400 mg PRN QHS PRN PO CONSTIPATION 03/13/21 21:30 Buspirone HCl (Buspar) 10 mg TID PO 03/13/21 22:15 03/16/21 19:31 Quetiapine Fumarate (SEROquel) 50 mg PRN DAILY PRN PO prior to lab draws 03/13/21 21:45 03/15/21 14:02 Quetiapine Fumarate (SEROquel) 50 mg PRN Q6HRS PRN PO AGITATION 03/13/21 21:45 Quetiapine Fumarate (SEROquel) 100 mg HS PO 03/13/21 22:15 03/16/21 19:31 Trazodone HCl (Desyrel) 150 mg HS PO 03/13/21 22:15 03/16/21 19:30 Melatonin (Melatonin) 6 mg HS PO 03/13/21 22:15 03/16/21 19:30 Allopurinol (Zyloprim) 100 mg BID PO 03/14/21 12:15 03/16/21 19:31 Finasteride (Proscar) 5 mg DAILY PO 03/14/21 12:15 03/16/21 08:48 Furosemide (Lasix) 40 mg DAILY PO 03/14/21 12:15 03/16/21 09:00 Metoprolol Tartrate (Lopressor) 25 mg BID PO 03/14/21 12:15 03/16/21 08:48 Tamsulosin HCl (Flomax) 0.4 mg DAILY PO 03/14/21 12:15 03/16/21 08:48 Pantoprazole Sodium (Protonix) 40 mg DAILYAC PO 03/15/21 07:30 03/16/21 08:48 Polyethylene Glycol (miraLAX) 17 gm DAILY PO 03/14/21 12:00 03/16/21 08:47 Non-Formulary Medication (Potassium Chloride (Klor-Con 10)) 30 meq DAILY PO 03/15/21 09:00 03/15/21 10:26 DC Rivaroxaban (Xarelto) 20 mg DAILYBFRSUP PO 03/14/21 17:00 03/14/21 17:30 DC Rivaroxaban (Xarelto) 20 mg DAILYBFRSUP PO 03/14/21 17:30 03/16/21 17:27 Olanzapine (ZyPREXA ZYDIS) 2.5 mg PRN Q2HR PRN PO PSYCHOSIS 03/14/21 18:45 03/16/21 14:43 Divalproex Sodium (Depakote Sprinkles) 125 mg BID@0900,1700 PO 03/15/21 21:00 03/16/21 17:27 Sertraline HCl (Zoloft) 50 mg DAILY PO 03/16/21 09:00 03/16/21 08:48 Current Medications Medications (Trade) Dose Ordered Sig/Crista Route PRN Reason Start Time Stop Time Status Last Admin Dose Admin Sertraline HCl (Zoloft) 50 mg DAILY PO 03/16/21 09:00 03/16/21 08:48 I have reviewed the current psychotropics carefully including drug interactions. Risk benefit ratio favors no change other than as noted in my dictated progress note. 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
--- NOTE | 2021-03-16 22:24 | PDOC ---
Exam Note: Kevin Note: This note is a late entry for 03/14/2021 covers elements not covered in my initial note. Subjective: The patient was seen individually in the evening of 03/14/2021 with Fransico BIRMINGHAM, discussed and reviewed the chart. The patient slept 6-1/2 hours previous night. He has been confused, anxious, restless, wandering the hallways, swatting meds out of the nursing staffs hands. He threw the cup at the nursing staff, intermittently aggressive during bathing and cares. Review of Systems: Ambulation impaired in wheelchair. No CV, , pulmonary, eye, ENT system symptoms on review. Reliability poor. Mental Status Exam: The patient is oriented to himself. Insight and judgment, recent and remote memory, attention and concentration, fund of knowledge is poor consistent with his diagnoses. Laboratory Data: Reviewed. Impression: Major neurocognitive disorder Alzheimer vascular with delusion, depression, behavioral disturbance. Anxiety disorder unspecified. Impulse control disorder unspecified. Plan: Continue BuSpar, melatonin, Seroquel, trazodone at current dosage. Consider Depakote as a mood stabilizer. Assessment: Vital Signs/I&O: Vital Signs Date Time Temp Pulse Resp B/P (MAP) Pulse Ox O2 Delivery O2 Flow Rate FiO2 03/16/21 20:36 84 95/54 03/16/21 16:03 97.5 20 95 03/14/21 06:07 Room Air I & O 03/15/21 03/15/21 03/16/21 15:00 23:00 07:00 Intake Total 600 ml 240 ml Balance 600 ml 240 ml Current Medications: Meds: Current Medications Medications (Trade) Dose Ordered Sig/Crista Route PRN Reason Start Time Stop Time Status Last Admin Dose Admin Acetaminophen (Tylenol) 650 mg PRN Q6HRS PRN PO MILD PAIN / TEMP > 100.3'F 03/13/21 21:30 Multi-Ingredient Ointment (Analgesic [place]) 1 mikala PRN QID PRN TP MUSCLE PAIN 03/13/21 21:30 Al Hydroxide/Mg Hydroxide (Mylanta Plus Xs) 15 ml PRN AFTMEALHC PRN PO DYSPEPSIA 03/13/21 21:30 Magnesium Hydroxide (Milk Of Magnesia) 2,400 mg PRN QHS PRN PO CONSTIPATION 03/13/21 21:30 Buspirone HCl (Buspar) 10 mg TID PO 03/13/21 22:15 03/16/21 19:31 Quetiapine Fumarate (SEROquel) 50 mg PRN DAILY PRN PO prior to lab draws 03/13/21 21:45 03/15/21 14:02 Quetiapine Fumarate (SEROquel) 50 mg PRN Q6HRS PRN PO AGITATION 03/13/21 21:45 Quetiapine Fumarate (SEROquel) 100 mg HS PO 03/13/21 22:15 03/16/21 19:31 Trazodone HCl (Desyrel) 150 mg HS PO 03/13/21 22:15 03/16/21 19:30 Melatonin (Melatonin) 6 mg HS PO 03/13/21 22:15 03/16/21 19:30 Allopurinol (Zyloprim) 100 mg BID PO 03/14/21 12:15 03/16/21 19:31 Finasteride (Proscar) 5 mg DAILY PO 03/14/21 12:15 03/16/21 08:48 Furosemide (Lasix) 40 mg DAILY PO 03/14/21 12:15 03/16/21 09:00 Metoprolol Tartrate (Lopressor) 25 mg BID PO 03/14/21 12:15 03/16/21 08:48 Tamsulosin HCl (Flomax) 0.4 mg DAILY PO 03/14/21 12:15 03/16/21 08:48 Pantoprazole Sodium (Protonix) 40 mg DAILYAC PO 03/15/21 07:30 03/16/21 08:48 Polyethylene Glycol (miraLAX) 17 gm DAILY PO 03/14/21 12:00 03/16/21 08:47 Non-Formulary Medication (Potassium Chloride (Klor-Con 10)) 30 meq DAILY PO 03/15/21 09:00 03/15/21 10:26 DC Rivaroxaban (Xarelto) 20 mg DAILYBFRSUP PO 03/14/21 17:00 03/14/21 17:30 DC Rivaroxaban (Xarelto) 20 mg DAILYBFRSUP PO 03/14/21 17:30 03/16/21 17:27 Olanzapine (ZyPREXA ZYDIS) 2.5 mg PRN Q2HR PRN PO PSYCHOSIS 03/14/21 18:45 03/16/21 14:43 Divalproex Sodium (Depakote Sprinkles) 125 mg BID@0900,1700 PO 03/15/21 21:00 03/16/21 17:27 Sertraline HCl (Zoloft) 50 mg DAILY PO 03/16/21 09:00 03/16/21 08:48 Current Medications Medications (Trade) Dose Ordered Sig/Crista Route PRN Reason Start Time Stop Time Status Last Admin Dose Admin Sertraline HCl (Zoloft) 50 mg DAILY PO 03/16/21 09:00 03/16/21 08:48 I have reviewed the current psychotropics carefully including drug interactions. Risk benefit ratio favors no change other than as noted in my dictated progress note. 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
--- NOTE | 2021-03-16 23:28 | NUR ---
Pt wandering in the hallway when approached. Pt disorganized, restless, and confused. Pt resistive with HS medications, refusing to take them crushed in liquids. I attempted to administer them crushed in chocolate ice cream after pt told staff that he would eat ice cream, but pt refused to eat it. After several attempts, pt finally took medications crushed in vanilla ice cream.
[2021-03-17 06:14] VITALS: BP 98/60
[2021-03-17] MEDS: ALLOPURINOL 100 MG TABLET. PO SCH ×2 (08:02→19:54)
[2021-03-17] MEDS: SERTRALINE 50 MG TABLET. PO SCH (08:03)
[2021-03-17] MEDS: DIVALPROEX 125 MG CAP.SPRINK PO SCH ×2 (08:03→13:55)
[2021-03-17] MEDS: TAMSULOSIN 0.4 MG CAP.ER.24H. PO SCH (08:03)
[2021-03-17] MEDS: busPIRone 10 MG TABLET. PO SCH ×2 (08:03→13:55)
[2021-03-17] MEDS: PANTOPRAZOLE 40 MG TABLET. PO SCH (08:03)
[2021-03-17] MEDS: FINASTERIDE 5 MG TABLET. PO SCH (08:03)
[2021-03-17] MEDS: POLYETHYLENE GLYCOL 3350 17 GM PACKET. PO SCH (08:04)
[2021-03-17] MEDS: METOPROLOL TART IMMED RELEASE 25 MG TABLET. PO SCH ×2 (08:04→20:00)
[2021-03-17] MEDS: FUROSEMIDE 40 MG TABLET PO SCH (08:04)
--- NOTE | 2021-03-17 13:08 | NUR ---
WEEKLY ACTIVITY THERAPY NOTE Date of Admission: 03/13/21 Date of AT Assessment: 03/16 Precipitating behaviors that initiated intake and admission:it was reported that patient has been agitated, aggressive, combative with cares, sundowning, impulsive, has "poor safety" and refused medications and vital signs. Goal aimed:increase engagement and relaxation skills Initial Goal:Pt will participate in at least three individual or group Activity Therapy sessions before discharge. Weekly progress towards goal: Goal evaluation begins next week Group participation level: none Weekly highlights: arrived on [facility] Behaviors observed: wandering and intrusive, resistive with staff Plan: Goal evaluation begins next week Beneficial adaptations:
--- NOTE | 2021-03-17 13:20 | NUR ---
PSYCHOSOCIAL ASSESSMENT ADMISSION DATE: 03/13/21 CONTACT INFORMATION: DPOA/Guardian Contact Name: Lila Grigsby Contact Address: [address]; [place] [address] Contact Phone #: ETHNIC ORIGIN: REASONS FOR ADMISSION: Aggressive Combative Confusion/Disoriented Poor impulse control ADDITIONAL ADMISSION COMMENTS: According to the intake, pt is agitated, aggressive/combative at times of care, sundowning, impulsive, poor safety, refuses medications and vital signs. REASON FOR ADMISSION IN PATIENT/FAMILY'S OWN WORDS: Decline in cognition based off his Dementia prognosis. PATIENT/FAMILY EXPECTATIONS FOR ADMISSION: Medication and behavioral management LIVING SITUATION: Patient lives with: Memory Care Other living arrangements: Contact Name: [facility] Contact Address: [address] [facility], [address]; [place] [address] Contact Phone #: Contact Fax #: FAMILY RELATIONS: Marital Status: # of Marriages: 1 # of Children: 0 [facility] Family Support: Concerned Cooperative Involved in DC Planning Additional Comments r/t Family: Pt met his through a mutual friend. "he was dating my roommate and decided I was a better fit for him". The two have been for 56 years this month. They do not have any children despite all efforts but have many nieces and nephews they treat as children. SIGNIFICANT PSYCHIATRIC/MEDICAL HISTORY: Psychiatric/Treatment History: This is pt first admission to [facility] Pertinent Family History: None noted; father passed with heart trouble HISTORICAL DATA: Childhood Environment: [place] Nurturing Supportive Childhood Environment Additional Comments: Pt grew up in [place] until he was 12 years old and his father moved them to a small town in [place]. Pt father was a teacher, who changed careers to work in the [email or web address]. Pt father from heart trouble and his mother moved them back to [place] closer to family. Pt is one of six siblings in which his older brother has . 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 Past/Present Interests/Hobbies: planes motorcycles used to love sports played golf Financial support/resources: Long Term/Pension Monthly income: Person handling finances: Pt handles all pt finances Do you have a history of legal problems: N Cultural considerations: None SOCIAL RELATIONSHIPS-CURRENT/PAST: Psychiatrist: None PCP: Dr. Arron Flores Counselor/Therapist: None [facility]: None Support Group: None [employer] Cut[employer] Press Operator/Digital Print Operator: None Other relationships: Staff at [facility] STRENGTHS & WEAKNESSES: Patient's strengths: Good family support Ambulatory Approachable Other patient strengths: Patient's weaknesses: Impulsive Health problems Physically Aggressive Other patient weaknesses: PRELIMINARY PLAN OF TREATMENT: Preliminary plan: Promote Coping Skill Medication Stabilization Monitor Med Effects Dec. Outbursts Dec. Aggression Other preliminary treatment comments: DISCHARGE PLANNING: Discharge planning/disposition: Placement Needed Additional discharge needs identified: Referrals to a higher level of care ADDITIONAL INFORMATION: Other Pertinent Data: PSA was completed with pt , Lila. Lila reports that she has reached out to a couple different places for placement and hopes within the next week or so she will be able to make a decision as to where pt will be able to discharge. The concern about pt discharge to [facility] is that they will not be able to care for pt as his disease progresses. At this time, Lila has looked at [place], [facility] and has ruled out [facility]. DARSHANA will work on placement options with pt and has also scheduled a few visits for the following week. Pt did want to clarify, in treatment team, she mentioned that pt had been in 5 different places; however,she meant that pt has been in 1 different facility with 4 different hospital stays. DARSHANA will pass this on to the team.
[2021-03-17] MEDS: RIVAROXABAN 10 MG TABLET. PO SCH (13:56)
--- NOTE | 2021-03-17 17:42 | NUR ---
NSG NOTE; SHIFT SUMMARY Wicho/Tomas wandered a little less today, sitting for short periods in the dayroom and dining room. He is not eating much at meals but did eat some of his roll with meat inside. His diet was changed to finger foods which he can manage easier while moving around. He drinks well, preferring water, ice tea and juice over the milky type of Ensure. Clear Ensure were ordered from the kitchen in hopes he will like it. He is still intrusive at times, especially in the crowded dining room, less so in the dayroom. He is alert and confused, resisting any hands-on attempts to redirect him. He does not follow directions.
[2021-03-17] MEDS: QUEtiapine 100 MG TABLET. PO SCH (19:54)
[2021-03-17] MEDS: traZODone 150 MG TABLET. PO SCH (19:54)
[2021-03-17] MEDS: MELATONIN 3 MG TABLET PO SCH (19:56)
--- NOTE | 2021-03-17 21:54 | PDOC ---
Exam Note: Kevin Note: Please also refer to the separate dictated note~for this date of service dictated separately.~Patient seen individually. Discussed the patient with Nursing staff reviewed the chart.~Reviewed interim history and current functioning. Reviewed vital signs,~Labs/ Radiology~and current medications noted below. Continue current treatment with the changes noted in the dictated addendum note Assessment: Vital Signs/I&O: Vital Signs Date Time Temp Pulse Resp B/P (MAP) Pulse Ox O2 Delivery O2 Flow Rate FiO2 03/17/21 20:00 99 124/64 03/17/21 06:14 97.1 18 97 03/14/21 06:07 Room Air I & O 03/16/21 03/16/21 03/17/21 15:00 23:00 07:00 Intake Total 1080 ml 120 ml Balance 1080 ml 120 ml Current Medications: Meds: Current Medications Medications (Trade) Dose Ordered Sig/Crista Route PRN Reason Start Time Stop Time Status Last Admin Dose Admin Acetaminophen (Tylenol) 650 mg PRN Q6HRS PRN PO MILD PAIN / TEMP > 100.3'F 03/13/21 21:30 Multi-Ingredient Ointment (Analgesic Majestic) 1 mikala PRN QID PRN TP MUSCLE PAIN 03/13/21 21:30 Al Hydroxide/Mg Hydroxide (Mylanta Plus Xs) 15 ml PRN AFTMEALHC PRN PO DYSPEPSIA 03/13/21 21:30 Magnesium Hydroxide (Milk Of Magnesia) 2,400 mg PRN QHS PRN PO CONSTIPATION 03/13/21 21:30 Buspirone HCl (Buspar) 10 mg TID PO 03/13/21 22:15 03/17/21 14:18 DC 03/17/21 13:55 Quetiapine Fumarate (SEROquel) 50 mg PRN DAILY PRN PO prior to lab draws 03/13/21 21:45 03/15/21 14:02 Quetiapine Fumarate (SEROquel) 50 mg PRN Q6HRS PRN PO AGITATION 03/13/21 21:45 Quetiapine Fumarate (SEROquel) 100 mg HS PO 03/13/21 22:15 03/17/21 19:54 Trazodone HCl (Desyrel) 150 mg HS PO 03/13/21 22:15 03/17/21 19:54 Melatonin (Melatonin) 6 mg HS PO 03/13/21 22:15 03/17/21 19:56 Allopurinol (Zyloprim) 100 mg BID PO 03/14/21 12:15 03/17/21 19:54 Finasteride (Proscar) 5 mg DAILY PO 03/14/21 12:15 03/17/21 08:03 Furosemide (Lasix) 40 mg DAILY PO 03/14/21 12:15 03/16/21 09:00 Metoprolol Tartrate (Lopressor) 25 mg BID PO 03/14/21 12:15 03/17/21 20:00 Tamsulosin HCl (Flomax) 0.4 mg DAILY PO 03/14/21 12:15 03/17/21 08:03 Pantoprazole Sodium (Protonix) 40 mg DAILYAC PO 03/15/21 07:30 03/17/21 08:03 Polyethylene Glycol (miraLAX) 17 gm DAILY PO 03/14/21 12:00 03/17/21 08:04 Non-Formulary Medication (Potassium Chloride (Klor-Con 10)) 30 meq DAILY PO 03/15/21 09:00 03/15/21 10:26 DC Rivaroxaban (Xarelto) 20 mg DAILYBFRSUP PO 03/14/21 17:00 03/14/21 17:30 DC Rivaroxaban (Xarelto) 20 mg DAILYBFRSUP PO 03/14/21 17:30 03/17/21 13:56 Olanzapine (ZyPREXA ZYDIS) 2.5 mg PRN Q2HR PRN PO PSYCHOSIS 03/14/21 18:45 03/17/21 09:26 Divalproex Sodium (Depakote Sprinkles) 125 mg BID@0900,1700 PO 03/15/21 21:00 03/17/21 13:55 Sertraline HCl (Zoloft) 50 mg DAILY PO 03/16/21 09:00 03/17/21 08:03 I have reviewed the current psychotropics carefully including drug interactions. Risk benefit ratio favors no change other than as noted in my dictated progress note. Diagnosis: Problems: (1) Impulse control disorder, unspecified (2) Anxiety disorder, unspecified (3) Dementia, vascular, with depression (4) Dementia, vascular, with delusions (5) Dementia in Alzheimer's disease with depression (6) Dementia in Alzheimer's disease with delusions (7) Dementia of the Alzheimer's type with early onset with behavioral d isturbance (8) Major neurocognitive disorder RONALD MENJIVAR MD Mar 17, 2021 21:54
--- NOTE | 2021-03-18 00:39 | NUR ---
Pt wandering in hallway when approached. Pt confused, disorganized, and resistive with re-direction. Pt took medications crushed and hidden in vanilla ice cream.
[2021-03-18 06:09] VITALS: BP 104/68
--- NOTE | 2021-03-18 06:51 | PDOC ---
Exam Note: Kevin Note: This note is a late entry for 03/16/2021 covers elements not covered in my initial note. Subjective: The patient was seen individually in the evening of 03/16/2021 with Miroslava BIRMINGHAM, discussed and reviewed the chart. The patient slept 5 hours previous night. He has been confused, wandering. Review of Systems: Ambulation impaired in wheelchair. No CV, , pulmonary, eye, ENT system symptoms on review. Reliability poor. Mental Status Exam: The patient is oriented to himself. Speech is gibberish, somewhat intrusive with cares, wanders into others rooms, difficult to redirect at times. Insight and judgment, recent and remote memory, attention and concentration, fund of knowledge is poor consistent with his diagnoses. Laboratory Data: Reviewed. Impression: Major neurocognitive disorder Alzheimer vascular with delusion, depression, behavioral disturbance. Anxiety disorder unspecified. Impulse control disorder unspecified. Plan: Continue current psychotropics from initial note. Assessment: Vital Signs/I&O: Vital Signs Date Time Temp Pulse Resp B/P (MAP) Pulse Ox O2 Delivery O2 Flow Rate FiO2 03/18/21 06:09 98.0 82 20 104/68 (80) 98 Room Air I & O 03/17/21 03/17/21 03/18/21 15:00 23:00 07:00 Intake Total 720 ml 120 ml 120 ml Balance 720 ml 120 ml 120 ml Current Medications: Meds: Current Medications Medications (Trade) Dose Ordered Sig/Crista Route PRN Reason Start Time Stop Time Status Last Admin Dose Admin Acetaminophen (Tylenol) 650 mg PRN Q6HRS PRN PO MILD PAIN / TEMP > 100.3'F 03/13/21 21:30 Multi-Ingredient Ointment (Analgesic [place]) 1 mikala PRN QID PRN TP MUSCLE PAIN 03/13/21 21:30 Al Hydroxide/Mg Hydroxide (Mylanta Plus Xs) 15 ml PRN AFTMEALHC PRN PO DYSPEPSIA 03/13/21 21:30 Magnesium Hydroxide (Milk Of Magnesia) 2,400 mg PRN QHS PRN PO CONSTIPATION 03/13/21 21:30 Buspirone HCl (Buspar) 10 mg TID PO 03/13/21 22:15 03/17/21 14:18 DC 03/17/21 13:55 Quetiapine Fumarate (SEROquel) 50 mg PRN DAILY PRN PO prior to lab draws 03/13/21 21:45 03/15/21 14:02 Quetiapine Fumarate (SEROquel) 50 mg PRN Q6HRS PRN PO AGITATION 03/13/21 21:45 Quetiapine Fumarate (SEROquel) 100 mg HS PO 03/13/21 22:15 03/17/21 19:54 Trazodone HCl (Desyrel) 150 mg HS PO 03/13/21 22:15 03/17/21 19:54 Melatonin (Melatonin) 6 mg HS PO 03/13/21 22:15 03/17/21 19:56 Allopurinol (Zyloprim) 100 mg BID PO 03/14/21 12:15 03/17/21 19:54 Finasteride (Proscar) 5 mg DAILY PO 03/14/21 12:15 03/17/21 08:03 Furosemide (Lasix) 40 mg DAILY PO 03/14/21 12:15 03/16/21 09:00 Metoprolol Tartrate (Lopressor) 25 mg BID PO 03/14/21 12:15 03/17/21 20:00 Tamsulosin HCl (Flomax) 0.4 mg DAILY PO 03/14/21 12:15 03/17/21 08:03 Pantoprazole Sodium (Protonix) 40 mg DAILYAC PO 03/15/21 07:30 03/17/21 08:03 Polyethylene Glycol (miraLAX) 17 gm DAILY PO 03/14/21 12:00 03/17/21 08:04 Non-Formulary Medication (Potassium Chloride (Klor-Con 10)) 30 meq DAILY PO 03/15/21 09:00 03/15/21 10:26 DC Rivaroxaban (Xarelto) 20 mg DAILYBFRSUP PO 03/14/21 17:00 03/14/21 17:30 DC Rivaroxaban (Xarelto) 20 mg DAILYBFRSUP PO 03/14/21 17:30 03/17/21 13:56 Olanzapine (ZyPREXA ZYDIS) 2.5 mg PRN Q2HR PRN PO PSYCHOSIS 03/14/21 18:45 03/17/21 09:26 Divalproex Sodium (Depakote Sprinkles) 125 mg BID@0900,1700 PO 03/15/21 21:00 03/17/21 13:55 Sertraline HCl (Zoloft) 50 mg DAILY PO 03/16/21 09:00 03/17/21 08:03 I have reviewed the current psychotropics carefully including drug interactions. Risk benefit ratio favors no change other than as noted in my dictated progress note. Diagnosis: Problems: (1) Impulse control disorder, unspecified (2) Anxiety disorder, unspecified (3) Dementia, vascular, with depression (4) Dementia, vascular, with delusions (5) Dementia in Alzheimer's disease with depression (6) Dementia in Alzheimer's disease with delusions (7) Dementia of the Alzheimer's type with early onset with behavioral disturbance (8) Major neurocognitive disorder RONALD MENJIVAR MD Mar 18, 2021 06:51
--- NOTE | 2021-03-18 07:27 | PDOC ---
Exam Note: Kevin Note: This note is a late entry for 03/17/2021 covers elements not covered in my initial note. Subjective: The patient was reviewed in the morning of 03/17/2021 for a treatment team meeting with Amalia Campos, Madina Aguilar and Kerline (social director), Guadalupe, activity therapy and Mark BIRMING[place]AM, discussed and reviewed the chart. The patient slept 7 hours previous night. His attended the treatment team meeting. He has been confused, grabbing at nursing staffs arms, oblivious of his strength. Previous night it took 4 people to shower him. Today he has done a little better. Appetite is poor. Review of Systems: Ambulation impaired in wheelchair. No CV, , pulmonary, eye, ENT system symptoms on review. Reliability poor. Mental Status Exam: The patient is oriented to himself. Insight and judgment, recent and remote memory, attention and concentration, fund of knowledge is poor consistent with his diagnoses. Laboratory Data: Reviewed. Impression: Major neurocognitive disorder Alzheimer vascular with delusion, depression, behavioral disturbance. Anxiety disorder unspecified. Impulse control disorder unspecified. Plan: We will go ahead and stop the BuSpar. is concerned about multiple psychotropics he is taking. We are adjusting Depakote to reach therapeutic level with labs and valproic acid level to be checked on 03/19. Maintain Zoloft at current dosage, melatonin, Seroquel, trazodone along with Zyprexa p.r.n. Adjust further as clinically indicated. Assessment: Vital Signs/I&O: Vital Signs Date Time Temp Pulse Resp B/P (MAP) Pulse Ox O2 Delivery O2 Flow Rate FiO2 03/18/21 06:09 98.0 82 20 104/68 (80) 98 Room Air I & O 03/17/21 03/17/21 03/18/21 15:00 23:00 07:00 Intake Total 720 ml 120 ml 120 ml Balance 720 ml 120 ml 120 ml Current Medications: Meds: Current Medications Medications (Trade) Dose Ordered Sig/Crista Route PRN Reason Start Time Stop Time Status Last Admin Dose Admin Acetaminophen (Tylenol) 650 mg PRN Q6HRS PRN PO MILD PAIN / TEMP > 100.3'F 03/13/21 21:30 Multi-Ingredient Ointment (Analgesic Coleman) 1 mikala PRN QID PRN TP MUSCLE PAIN 03/13/21 21:30 Al Hydroxide/Mg Hydroxide (Mylanta Plus Xs) 15 ml PRN AFTMEALHC PRN PO DYSPEPSIA 03/13/21 21:30 Magnesium Hydroxide (Milk Of Magnesia) 2,400 mg PRN QHS PRN PO CONSTIPATION 03/13/21 21:30 Buspirone HCl (Buspar) 10 mg TID PO 03/13/21 22:15 03/17/21 14:18 DC 03/17/21 13:55 Quetiapine Fumarate (SEROquel) 50 mg PRN DAILY PRN PO prior to lab draws 03/13/21 21:45 03/15/21 14:02 Quetiapine Fumarate (SEROquel) 50 mg PRN Q6HRS PRN PO AGITATION 03/13/21 21:45 Quetiapine Fumarate (SEROquel) 100 mg HS PO 03/13/21 22:15 03/17/21 19:54 Trazodone HCl (Desyrel) 150 mg HS PO 03/13/21 22:15 03/17/21 19:54 Melatonin (Melatonin) 6 mg HS PO 03/13/21 22:15 03/17/21 19:56 Allopurinol (Zyloprim) 100 mg BID PO 03/14/21 12:15 03/17/21 19:54 Finasteride (Proscar) 5 mg DAILY PO 03/14/21 12:15 03/17/21 08:03 Furosemide (Lasix) 40 mg DAILY PO 03/14/21 12:15 03/16/21 09:00 Metoprolol Tartrate (Lopressor) 25 mg BID PO 03/14/21 12:15 03/17/21 20:00 Tamsulosin HCl (Flomax) 0.4 mg DAILY PO 03/14/21 12:15 03/17/21 08:03 Pantoprazole Sodium (Protonix) 40 mg DAILYAC PO 03/15/21 07:30 03/17/21 08:03 Polyethylene Glycol (miraLAX) 17 gm DAILY PO 03/14/21 12:00 03/17/21 08:04 Non-Formulary Medication (Potassium Chloride (Klor-Con 10)) 30 meq DAILY PO 03/15/21 09:00 03/15/21 10:26 DC Rivaroxaban (Xarelto) 20 mg DAILYBFRSUP PO 03/14/21 17:00 03/14/21 17:30 DC Rivaroxaban (Xarelto) 20 mg DAILYBFRSUP PO 03/14/21 17:30 03/17/21 13:56 Olanzapine (ZyPREXA ZYDIS) 2.5 mg PRN Q2HR PRN PO PSYCHOSIS 03/14/21 18:45 03/17/21 09:26 Divalproex Sodium (Depakote Sprinkles) 125 mg BID@0900,1700 PO 03/15/21 21:00 03/17/21 13:55 Sertraline HCl (Zoloft) 50 mg DAILY PO 03/16/21 09:00 03/17/21 08:03 I have reviewed the current psychotropics carefully including drug interactions. Risk benefit ratio favors no change other than as noted in my dictated progress note. Diagnosis: Problems: (1) Impulse control disorder, unspecified (2) Anxiety disorder, unspecified (3) Dementia, vascular, with depression (4) Dementia, vascular, with delusions (5) Dementia in Alzheimer's disease with depression (6) Dementia in Alzheimer's disease with delusions (7) Dementia of the Alzheimer's type with early onset with behavioral disturbance (8) Major neurocognitive disorder RONALD MENJIVAR MD Mar 18, 2021 07:27
[2021-03-18] MEDS: POLYETHYLENE GLYCOL 3350 17 GM PACKET. PO SCH (08:59)
[2021-03-18] MEDS: FUROSEMIDE 40 MG TABLET PO SCH (09:00)
[2021-03-18] MEDS: DIVALPROEX 125 MG CAP.SPRINK PO SCH ×2 (09:00→17:12)
[2021-03-18] MEDS: SERTRALINE 50 MG TABLET. PO SCH (09:00)
[2021-03-18] MEDS: ALLOPURINOL 100 MG TABLET. PO SCH ×2 (09:00→20:15)
[2021-03-18] MEDS: PANTOPRAZOLE 40 MG TABLET. PO SCH (09:00)
[2021-03-18] MEDS: FINASTERIDE 5 MG TABLET. PO SCH (09:00)
[2021-03-18] MEDS: METOPROLOL TART IMMED RELEASE 25 MG TABLET. PO SCH ×2 (09:00→20:16)
[2021-03-18] MEDS: TAMSULOSIN 0.4 MG CAP.ER.24H. PO SCH (09:00)
[2021-03-18 15:32] VITALS: BP 118/81
[2021-03-18] MEDS: QUEtiapine 50 MG TABLET. PO PRN (17:12)
[2021-03-18] MEDS: RIVAROXABAN 10 MG TABLET. PO SCH (17:13)
--- NOTE | 2021-03-18 17:52 | NUR ---
Patient wanders halls and has very brief rest periods, diet was changed to finger foods because he is unable to sit and focus on finishing his meals. Patient is very intrusive with personal space he does grab and touch a lot not in an inappropriate manner. Patient does have a good appetite and will eat when offered meals but just cannot focus on finishing them. Patient takes his meds crushed in liquids with lots of ice and will drink the entire cup. Multiple attempts to redirect patient verbally and he was given seroquel 50mg prn at 1730 for increase agitation medication slightly effective patient is more calm still wandering but not aggressive or agitated. Patient vitals wnl and stable alert x1 self only speaks in word salad, patient called for an update password was given and update provided. No complaints of pain or discomfort to report Dr Oneal and Dr Villalobos rounded on patient no new orders, will continue to monitor patient.
[2021-03-18] MEDS: QUEtiapine 100 MG TABLET. PO SCH (20:15)
[2021-03-18] MEDS: traZODone 150 MG TABLET. PO SCH (20:16)
[2021-03-18] MEDS: MELATONIN 3 MG TABLET PO SCH (20:16)
--- NOTE | 2021-03-18 22:03 | PDOC ---
Exam Note: Kevin Note: Please also refer to the separate dictated note~for this date of service dictated separately.~Patient seen individually. Discussed the patient with Nursing staff reviewed the chart.~Reviewed interim history and current functioning. Reviewed vital signs,~Labs/ Radiology~and current medications noted below. Continue current treatment with the changes noted in the dictated addendum note Assessment: Vital Signs/I&O: Vital Signs Date Time Temp Pulse Resp B/P (MAP) Pulse Ox O2 Delivery O2 Flow Rate FiO2 03/18/21 20:16 80 118/81 03/18/21 15:32 97.6 18 100 03/18/21 06:09 Room Air I & O 03/17/21 03/17/21 03/18/21 15:00 23:00 07:00 Intake Total 720 ml 120 ml 120 ml Balance 720 ml 120 ml 120 ml Current Medications: Meds: Current Medications Medications (Trade) Dose Ordered Sig/Crista Route PRN Reason Start Time Stop Time Status Last Admin Dose Admin Acetaminophen (Tylenol) 650 mg PRN Q6HRS PRN PO MILD PAIN / TEMP > 100.3'F 03/13/21 21:30 Multi-Ingredient Ointment (Analgesic [place]) 1 mikala PRN QID PRN TP MUSCLE PAIN 03/13/21 21:30 Al Hydroxide/Mg Hydroxide (Mylanta Plus Xs) 15 ml PRN AFTMEALHC PRN PO DYSPEPSIA 03/13/21 21:30 Magnesium Hydroxide (Milk Of Magnesia) 2,400 mg PRN QHS PRN PO CONSTIPATION 03/13/21 21:30 Buspirone HCl (Buspar) 10 mg TID PO 03/13/21 22:15 03/17/21 14:18 DC 03/17/21 13:55 Quetiapine Fumarate (SEROquel) 50 mg PRN DAILY PRN PO prior to lab draws 03/13/21 21:45 03/18/21 17:12 Quetiapine Fumarate (SEROquel) 50 mg PRN Q6HRS PRN PO AGITATION 03/13/21 21:45 Quetiapine Fumarate (SEROquel) 100 mg HS PO 03/13/21 22:15 03/18/21 20:15 Trazodone HCl (Desyrel) 150 mg HS PO 03/13/21 22:15 03/18/21 20:16 Melatonin (Melatonin) 6 mg HS PO 03/13/21 22:15 03/18/21 20:16 Allopurinol (Zyloprim) 100 mg BID PO 03/14/21 12:15 03/18/21 20:15 Finasteride (Proscar) 5 mg DAILY PO 03/14/21 12:15 03/18/21 09:00 Furosemide (Lasix) 40 mg DAILY PO 03/14/21 12:15 03/18/21 09:00 Metoprolol Tartrate (Lopressor) 25 mg BID PO 03/14/21 12:15 03/18/21 20:16 Tamsulosin HCl (Flomax) 0.4 mg DAILY PO 03/14/21 12:15 03/18/21 09:00 Pantoprazole Sodium (Protonix) 40 mg DAILYAC PO 03/15/21 07:30 03/18/21 09:00 Polyethylene Glycol (miraLAX) 17 gm DAILY PO 03/14/21 12:00 03/18/21 08:59 Non-Formulary Medication (Potassium Chloride (Klor-Con 10)) 30 meq DAILY PO 03/15/21 09:00 03/15/21 10:26 DC Rivaroxaban (Xarelto) 20 mg DAILYBFRSUP PO 03/14/21 17:00 03/14/21 17:30 DC Rivaroxaban (Xarelto) 20 mg DAILYBFRSUP PO 03/14/21 17:30 03/18/21 17:13 Olanzapine (ZyPREXA ZYDIS) 2.5 mg PRN Q2HR PRN PO PSYCHOSIS 03/14/21 18:45 03/17/21 09:26 Divalproex Sodium (Depakote Sprinkles) 125 mg BID@0900,1700 PO 03/15/21 21:00 03/18/21 17:12 Sertraline HCl (Zoloft) 50 mg DAILY PO 03/16/21 09:00 03/18/21 09:00 I have reviewed the current psychotropics carefully including drug interactions. Risk benefit ratio favors no change other than as noted in my dictated progress note. Diagnosis: Problems: (1) Impulse control disorder, unspecified (2) Anxiety disorder, unspecified (3) Dementia, vascular, with depression (4) Dementia, vascular, with delusions (5) Dementia in Alzheimer's disease with depression (6) Dementia in Alzheimer's disease with delusions (7) Dementia of the Alzheimer's type with early onset with behavioral disturbance (8) Major neurocognitive disorder RONALD MENJIVAR MD Mar 18, 2021 22:03
--- NOTE | 2021-03-19 03:43 | NUR ---
Nursing Note Pt wanders the unit, speaking in a word salad. No agitation if left alone, when I attempted to scan his armband for meds, he was resistive and was telling me off in a word salad rant. He uses hand gestures like he is frustrated and angry at me, but all words coming out of his mouth are not related to each other. Pt eats snacks in the day room, meds are in a drink which he tolerated well. Now sleeping.
[2021-03-19 06:10] VITALS: BP 129/88
[2021-03-19] MEDS: DIVALPROEX 125 MG CAP.SPRINK PO SCH ×2 (08:05→16:56)
[2021-03-19] MEDS: METOPROLOL TART IMMED RELEASE 25 MG TABLET. PO SCH ×2 (08:05→19:59)
[2021-03-19] MEDS: FINASTERIDE 5 MG TABLET. PO SCH (08:06)
[2021-03-19] MEDS: SERTRALINE 50 MG TABLET. PO SCH (08:06)
[2021-03-19] MEDS: ALLOPURINOL 100 MG TABLET. PO SCH ×2 (08:06→19:59)
[2021-03-19] MEDS: FUROSEMIDE 40 MG TABLET PO SCH (08:06)
[2021-03-19] MEDS: PANTOPRAZOLE 40 MG TABLET. PO SCH (08:06)
[2021-03-19] MEDS: POLYETHYLENE GLYCOL 3350 17 GM PACKET. PO SCH (08:06)
[2021-03-19] MEDS: TAMSULOSIN 0.4 MG CAP.ER.24H. PO SCH (08:06)
[2021-03-19 12:38] LABS: BASO # 0.1 x10^3/uL (0.0-0.2); BASO % 1 % (0-3); EOS # 0.1 x10^3/uL (0.0-0.7); EOS % 1 % (0-3); HEMATOCRIT 40.1 % (39.0-53.0); HEMOGLOBIN 13.3 g/dL (13.0-17.5); LYMPH # 1.4 x10^3/uL (1.0-4.8); LYMPH % 16 % (24-48); MEAN CORPUSCULAR HEMOGLOBIN 30 pg (25-35); MEAN CORPUSCULAR HGB CONC 33 g/dL (31-37); MEAN CORPUSCULAR VOLUME 91 fL (79-100); MONO # 0.7 x10^3/uL (0.0-1.1); MONO % 7 % (0-9); NEUT # 6.9 x10^3uL (1.8-7.7); NEUT % 75 % (31-73); PLATELET COUNT 237 x10^3/uL (140-400); RED BLOOD COUNT 4.43 x10^6/uL (4.30-5.70); RED CELL DISTRIBUTION WIDTH 16.3 % (11.5-14.5); WHITE BLOOD COUNT 9.1 x10^3/uL (4.0-11.0)
--- NOTE | 2021-03-19 13:19 | NUR ---
NURSING NOTE PT WANDERING, CONFUSED, ANXIOUS, RESISTIVE WITH CARES. RESISTIVE WITH LAB DRAW. PT TOOK SEVERAL ATTEMPTS TO TAKE MEDICATIONS CRUSHED IN PUDDING BUT DID FINALLY TAKE THEM. PT WANDERS IN HALLWAY, DAYROOM, AND DINNING ROOM. PT TOOK A DRINK OFF ANOTHER PATIENTS TRAY THIS AM AND ATTEMPT TO DRINK IT. PT NEEDS ASSISTANCE WITH MEALS. WILL CONTINUE TO MONITOR. VINNIE STARKS.
[2021-03-19 13:46] LABS: ALBUMIN 3.5 g/dL (3.4-5.0); ALBUMIN/GLOBULIN RATIO 0.9 (1.0-1.7); ALK PHOS 29 U/L (46-116); ALT (SGPT) 28 U/L (16-63); ANION GAP 11 (6-14); AST (SGOT) 17 U/L (15-37); BLOOD UREA NITROGEN 21 mg/dL (8-26); BUN/CREATININE RATIO 19 (6-20); CALCIUM 9.5 mg/dL (8.5-10.1); CARBON DIOXIDE 27 mmol/L (21-32); CHLORIDE 109 mmol/L (98-107); CREATININE 1.1 mg/dL (0.7-1.3); GFR 64.6; GLUCOSE 120 mg/dL (70-99); POTASSIUM 5.5 mmol/L (3.5-5.1); SODIUM 147 mmol/L (136-145); TOTAL BILIRUBIN 1.4 mg/dL (0.2-1.0); TOTAL PROTEIN 7.2 g/dL (6.4-8.2); VAL ACID 17 mcg/mL (50-100)
--- NOTE | 2021-03-19 16:49 | TX PLAN ---
Interdisciplinary Tx Plan Admission Information March 13, 2021 at 19:45 Legal Status (on Admission): Voluntary DPOA/Guardian Name: Lila Grigsby Contact Other Contact Name: [facility] Other Contact Verified Code Status: DNR Allergies: Coded Allergies: No Known Drug Allergies (Unverified , 03/13/21) Diagnoses Primary Diagnosis: Major neurocognitive D/O, vascular Alzheimer's with delusions, depression with BD Reasons for Admission: Aggressive, Combative, Confusion/Disoriented, Poor impulse control Problem in Patient's Words: Decline in cognition based off his Dementia prognosis. Additional Admission Comments: According to the intake, pt is agitated, aggressive/combative at times of care, sundowning, impulsive, poor safety, refuses medications and vital signs. Problems Active Problems: Sundowning Impulsive Restless Resistive with Cares Agitated Wandering Inactive Problems: None Pt Strengths/Limitations Ability for [place]: Poor Cognitive Functioning/Ability: Poor Communication Skills/Ability: Poor Financial Resources: Good Insight/Judgement: Poor Intellectual Ability: Poor Physical Health: Poor Social Skills: Poor Stability in Family: Good Stability in School/Work: Poor Verbal Skills: Poor Discharge Criteria Discharge Criteria: No need for close observ., Adequate arrangements @DC, Improved behavior, Improved mood/thought Preliminary Discharge Plan Preliminary DC Plan: Placement Needed Special Precautions Fall Risk: Low Initial D/C Plan Pt will be sent to a Memory Care facility once stable. Identified Discharge Needs: Referrals to a higher level of care Currently Utilized Resources Currently Utilized Resources/P: Primary Care Physician Identified Problems/Hx/Goals Objectives/Short-Term Goals Short Term Goals: Dec. Aggression, Dec. Outbursts, Medication Stabilization, Monitor Med Effects, Promote Coping Skill Short Term Goals in Patient's: N/A Interventions/Frequency Staff Interventions/Frequency&: Psychiatrist to assess pt at least 3x per week for medication management. Social Work to assess pt at least 2x per week to identify barriers to care and finalize discharge planning. Nursing to assess medication effects, behavior modification and completion of 15 minute checks daily. Encourage participation in group activities (if applicable) or 1:1 engagement based off activity dept. goals. 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 Community Follow-up Primary Care Physician Community Provider/Family Inpu: Pt participated in treatement team via telephone. Treatment Plan Explained Patient/Media Intern had this treatment plan explained to him/her as indicated by the signature below and has been given the opportunity to ask questions and make suggestions: Date: Patient/Media Intern Signature: Patient/Media Intern Decline: No (Family is active in pt care.) ALBERT ULLOA Mar 19, 2021 16:49
[2021-03-19] MEDS: RIVAROXABAN 10 MG TABLET. PO SCH (16:56)
[2021-03-19] MEDS: MELATONIN 3 MG TABLET PO SCH (19:58)
[2021-03-19] MEDS: traZODone 150 MG TABLET. PO SCH (19:59)
[2021-03-19] MEDS: QUEtiapine 100 MG TABLET. PO SCH (19:59)
--- NOTE | 2021-03-19 21:55 | PDOC ---
Exam Note: Kevin Note: Please also refer to the separate dictated note~for this date of service dictated separately.~Patient seen individually. Discussed the patient with Nursing staff reviewed the chart.~Reviewed interim history and current functioning. Reviewed vital signs,~Labs/ Radiology~and current medications noted below. Continue current treatment with the changes noted in the dictated addendum note Assessment: Vital Signs/I&O: Vital Signs Date Time Temp Pulse Resp B/P (MAP) Pulse Ox O2 Delivery O2 Flow Rate FiO2 03/19/21 19:59 79 129/88 03/19/21 06:10 97.0 18 100 Room Air I & O 03/18/21 03/18/21 03/19/21 15:00 23:00 07:00 Intake Total 480 ml 360 ml Balance 480 ml 360 ml Labs: Laboratory Tests Test 03/19/21 11:42 White Blood Count 9.1 x10^3/uL (4.0-11.0) Red Blood Count 4.43 x10^6/uL (4.30-5.70) Hemoglobin 13.3 g/dL (13.0-17.5) Hematocrit 40.1 % (39.0-53.0) Mean Corpuscular Volume 91 fL (79-100) Mean Corpuscular Hemoglobin 30 pg (25-35) Mean Corpuscular Hemoglobin Concent 33 g/dL (31-37) Red Cell Distribution Width 16.3 % (11.5-14.5) H Platelet Count 237 x10^3/uL (140-400) Neutrophils (%) (Auto) 75 % (31-73) H Lymphocytes (%) (Auto) 16 % (24-48) L Monocytes (%) (Auto) 7 % (0-9) Eosinophils (%) (Auto) 1 % (0-3) Basophils (%) (Auto) 1 % (0-3) Neutrophils # (Auto) 6.9 x10^3uL (1.8-7.7) Lymphocytes # (Auto) 1.4 x10^3/uL (1.0-4.8) Monocytes # (Auto) 0.7 x10^3/uL (0.0-1.1) Eosinophils # (Auto) 0.1 x10^3/uL (0.0-0.7) Basophils # (Auto) 0.1 x10^3/uL (0.0-0.2) Sodium Level 147 mmol/L (136-145) H Potassium Level 5.5 mmol/L (3.5-5.1) H Chloride Level 109 mmol/L (98-107) H Carbon Dioxide Level 27 mmol/L (21-32) Anion Gap 11 (6-14) Blood Urea Nitrogen 21 mg/dL (8-26) Creatinine 1.1 mg/dL (0.7-1.3) Estimated GFR (Cockcroft-Gault) 64.6 BUN/Creatinine Ratio 19 (6-20) Glucose Level 120 mg/dL (70-99) H Calcium Level 9.5 mg/dL (8.5-10.1) Total Bilirubin 1.4 mg/dL (0.2-1.0) H Aspartate Amino Transferase (AST) 17 U/L (15-37) Alanine Aminotransferase (ALT) 28 U/L (16-63) Alkaline Phosphatase 29 U/L (46-116) L Total Protein 7.2 g/dL (6.4-8.2) Albumin 3.5 g/dL (3.4-5.0) Albumin/Globulin Ratio 0.9 (1.0-1.7) L Valproic Acid Level 17 mcg/mL (50-100) L Valproic Acid Last Dose Date 03/18/2021 Valproic Acid Last Dose Time 1700 Current Medications: Meds: Laboratory Tests Test 03/19/21 11:42 White Blood Count 9.1 x10^3/uL Red Blood Count 4.43 x10^6/uL Hemoglobin 13.3 g/dL Hematocrit 40.1 % Mean Corpuscular Volume 91 fL Mean Corpuscular Hemoglobin 30 pg Mean Corpuscular Hemoglobin Concent 33 g/dL Red Cell Distribution Width 16.3 % Platelet Count 237 x10^3/uL Neutrophils (%) (Auto) 75 % Lymphocytes (%) (Auto) 16 % Monocytes (%) (Auto) 7 % Eosinophils (%) (Auto) 1 % Basophils (%) (Auto) 1 % Neutrophils # (Auto) 6.9 x10^3uL Lymphocytes # (Auto) 1.4 x10^3/uL Monocytes # (Auto) 0.7 x10^3/uL Eosinophils # (Auto) 0.1 x10^3/uL Basophils # (Auto) 0.1 x10^3/uL Sodium Level 147 mmol/L Potassium Level 5.5 mmol/L Chloride Level 109 mmol/L Carbon Dioxide Level 27 mmol/L Anion Gap 11 Blood Urea Nitrogen 21 mg/dL Creatinine 1.1 mg/dL Estimated GFR (Cockcroft-Gault) 64.6 BUN/Creatinine Ratio 19 Glucose Level 120 mg/dL Calcium Level 9.5 mg/dL Total Bilirubin 1.4 mg/dL Aspartate Amino Transf (AST/SGOT) 17 U/L Alanine Aminotransferase (ALT/SGPT) 28 U/L Alkaline Phosphatase 29 U/L Total Protein 7.2 g/dL Albumin 3.5 g/dL Albumin/Globulin Ratio 0.9 Valproic Acid (Depakene) Level 17 mcg/mL Valproic Acid Last Dose Date 03/18/2021 Valproic Acid Last Dose Time 1700 Current Medications Medications (Trade) Dose Ordered Sig/Crista Route PRN Reason Start Time Stop Time Status Last Admin Dose Admin Acetaminophen (Tylenol) 650 mg PRN Q6HRS PRN PO MILD PAIN / TEMP > 100.3'F 03/13/21 21:30 Multi-Ingredient Ointment (Analgesic [place]) 1 mikala PRN QID PRN TP MUSCLE PAIN 03/13/21 21:30 Al Hydroxide/Mg Hydroxide (Mylanta Plus Xs) 15 ml PRN AFTMEALHC PRN PO DYSPEPSIA 03/13/21 21:30 Magnesium Hydroxide (Milk Of Magnesia) 2,400 mg PRN QHS PRN PO CONSTIPATION 03/13/21 21:30 Buspirone HCl (Buspar) 10 mg TID PO 03/13/21 22:15 03/17/21 14:18 DC 03/17/21 13:55 Quetiapine Fumarate (SEROquel) 50 mg PRN DAILY PRN PO prior to lab draws 03/13/21 21:45 03/18/21 17:12 Quetiapine Fumarate (SEROquel) 50 mg PRN Q6HRS PRN PO AGITATION 03/13/21 21:45 Quetiapine Fumarate (SEROquel) 100 mg HS PO 03/13/21 22:15 03/19/21 19:59 Trazodone HCl (Desyrel) 150 mg HS PO 03/13/21 22:15 03/19/21 19:59 Melatonin (Melatonin) 6 mg HS PO 03/13/21 22:15 03/19/21 19:58 Allopurinol (Zyloprim) 100 mg BID PO 03/14/21 12:15 03/19/21 19:59 Finasteride (Proscar) 5 mg DAILY PO 03/14/21 12:15 03/19/21 08:06 Furosemide (Lasix) 40 mg DAILY PO 03/14/21 12:15 03/19/21 08:06 Metoprolol Tartrate (Lopressor) 25 mg BID PO 03/14/21 12:15 03/19/21 19:59 Tamsulosin HCl (Flomax) 0.4 mg DAILY PO 03/14/21 12:15 03/19/21 08:06 Pantoprazole Sodium (Protonix) 40 mg DAILYAC PO 03/15/21 07:30 03/19/21 08:06 Polyethylene Glycol (miraLAX) 17 gm DAILY PO 03/14/21 12:00 03/19/21 08:06 Non-Formulary Medication (Potassium Chloride (Klor-Con 10)) 30 meq DAILY PO 03/15/21 09:00 03/15/21 10:26 DC Rivaroxaban (Xarelto) 20 mg DAILYBFRSUP PO 03/14/21 17:00 03/14/21 17:30 DC Rivaroxaban (Xarelto) 20 mg DAILYBFRSUP PO 03/14/21 17:30 03/19/21 16:56 Olanzapine (ZyPREXA ZYDIS) 2.5 mg PRN Q2HR PRN PO PSYCHOSIS 03/14/21 18:45 03/17/21 09:26 Divalproex Sodium (Depakote Sprinkles) 125 mg BID@0900,1700 PO 03/15/21 21:00 03/19/21 16:56 Sertraline HCl (Zoloft) 50 mg DAILY PO 03/16/21 09:00 03/19/21 08:06 I have reviewed the current psychotropics carefully including drug interactions. Risk benefit ratio favors no change other than as noted in my dictated progress note. Diagnosis: Problems: (1) Impulse control disorder, unspecified (2) Anxiety disorder, unspecified (3) Dementia, vascular, with depression (4) Dementia, vascular, with delusions (5) Dementia in Alzheimer's disease with depression (6) Dementia in Alzheimer's disease with delusions (7) Dementia of the Alzheimer's type with early onset with behavioral disturbance (8) Major neurocognitive disorder RONALD MENJIVAR MD Mar 19, 2021 21:55
--- NOTE | 2021-03-20 00:07 | NUR ---
Nursing Note Pt confused wandering tries to take drinks from peers and snacks. Difficult to redirect. Speaks in a word salad, argues with staff in a word salad makes no sense. Irritable at times. Needs max cues for ADL's.
[2021-03-20 06:04] VITALS: BP 107/58
[2021-03-20] MEDS: FINASTERIDE 5 MG TABLET. PO SCH (08:36)
[2021-03-20] MEDS: POLYETHYLENE GLYCOL 3350 17 GM PACKET. PO SCH (08:36)
[2021-03-20] MEDS: TAMSULOSIN 0.4 MG CAP.ER.24H. PO SCH (08:36)
[2021-03-20] MEDS: PANTOPRAZOLE 40 MG TABLET. PO SCH (08:36)
[2021-03-20] MEDS: ALLOPURINOL 100 MG TABLET. PO SCH ×2 (08:36→19:33)
[2021-03-20] MEDS: SERTRALINE 50 MG TABLET. PO SCH (08:36)
[2021-03-20] MEDS: DIVALPROEX 125 MG CAP.SPRINK PO SCH ×2 (08:36→18:08)
[2021-03-20] MEDS: FUROSEMIDE 40 MG TABLET PO SCH (08:36)
[2021-03-20] MEDS: METOPROLOL TART IMMED RELEASE 25 MG TABLET. PO SCH ×2 (08:37→20:53)
--- NOTE | 2021-03-20 09:23 | PDOC ---
Exam Note: Kevin Note: This note is a late entry for 03/18/2021 covers elements not covered in my initial note. Subjective: The patient was seen individually in the evening of 03/18/2021 with Fransico BIRMINGHAM, discussed and reviewed the chart. The patient slept 5-1/4 hours previous night. He remains confused, wandering. Speech is word salad. He takes medications crushed and fluids with ice-cream, holding hands of a female patient. Received Seroquel at 5.30 p.m., grabbing drinks off the dining table of other residents. Review of Systems: Ambulation impaired in wheelchair. No CV, , pulmonary, eye, ENT system symptoms on review. Reliability poor. Mental Status Exam: The patient is oriented to himself. Insight and judgment, recent and remote memory, attention and concentration, fund of knowledge is poor consistent with his diagnoses. Laboratory Data: Reviewed. Impression: Major neurocognitive disorder Alzheimer vascular with delusion, depression, behavioral disturbance. Anxiety disorder unspecified. Impulse control disorder unspecified. Plan: Continue psychotropics from initial note. Assessment: Vital Signs/I&O: Vital Signs Date Time Temp Pulse Resp B/P (MAP) Pulse Ox O2 Delivery O2 Flow Rate FiO2 03/20/21 08:37 74 107/58 03/20/21 06:04 97.0 12 95 03/19/21 06:10 Room Air I & O 03/19/21 03/19/21 03/20/21 14:59 22:59 06:59 Intake Total 600 ml 840 ml Balance 600 ml 840 ml Labs: Laboratory Tests Test 03/19/21 11:42 White Blood Count 9.1 x10^3/uL (4.0-11.0) Red Blood Count 4.43 x10^6/uL (4.30-5.70) Hemoglobin 13.3 g/dL (13.0-17.5) Hematocrit 40.1 % (39.0-53.0) Mean Corpuscular Volume 91 fL (79-100) Mean Corpuscular Hemoglobin 30 pg (25-35) Mean Corpuscular Hemoglobin Concent 33 g/dL (31-37) Red Cell Distribution Width 16.3 % (11.5-14.5) H Platelet Count 237 x10^3/uL (140-400) Neutrophils (%) (Auto) 75 % (31-73) H Lymphocytes (%) (Auto) 16 % (24-48) L Monocytes (%) (Auto) 7 % (0-9) Eosinophils (%) (Auto) 1 % (0-3) Basophils (%) (Auto) 1 % (0-3) Neutrophils # (Auto) 6.9 x10^3uL (1.8-7.7) Lymphocytes # (Auto) 1.4 x10^3/uL (1.0-4.8) Monocytes # (Auto) 0.7 x10^3/uL (0.0-1.1) Eosinophils # (Auto) 0.1 x10^3/uL (0.0-0.7) Basophils # (Auto) 0.1 x10^3/uL (0.0-0.2) Sodium Level 147 mmol/L (136-145) H Potassium Level 5.5 mmol/L (3.5-5.1) H Chloride Level 109 mmol/L (98-107) H Carbon Dioxide Level 27 mmol/L (21-32) Anion Gap 11 (6-14) Blood Urea Nitrogen 21 mg/dL (8-26) Creatinine 1.1 mg/dL (0.7-1.3) Estimated GFR (Cockcroft-Gault) 64.6 BUN/Creatinine Ratio 19 (6-20) Glucose Level 120 mg/dL (70-99) H Calcium Level 9.5 mg/dL (8.5-10.1) Total Bilirubin 1.4 mg/dL (0.2-1.0) H Aspartate Amino Transferase (AST) 17 U/L (15-37) Alanine Aminotransferase (ALT) 28 U/L (16-63) Alkaline Phosphatase 29 U/L (46-116) L Total Protein 7.2 g/dL (6.4-8.2) Albumin 3.5 g/dL (3.4-5.0) Albumin/Globulin Ratio 0.9 (1.0-1.7) L Valproic Acid Level 17 mcg/mL (50-100) L Valproic Acid Last Dose Date 03/18/2021 Valproic Acid Last Dose Time 1700 Current Medications: Meds: Laboratory Tests Test 03/19/21 11:42 White Blood Count 9.1 x10^3/uL Red Blood Count 4.43 x10^6/uL Hemoglobin 13.3 g/dL Hematocrit 40.1 % Mean Corpuscular Volume 91 fL Mean Corpuscular Hemoglobin 30 pg Mean Corpuscular Hemoglobin Concent 33 g/dL Red Cell Distribution Width 16.3 % Platelet Count 237 x10^3/uL Neutrophils (%) (Auto) 75 % Lymphocytes (%) (Auto) 16 % Monocytes (%) (Auto) 7 % Eosinophils (%) (Auto) 1 % Basophils (%) (Auto) 1 % Neutrophils # (Auto) 6.9 x10^3uL Lymphocytes # (Auto) 1.4 x10^3/uL Monocytes # (Auto) 0.7 x10^3/uL Eosinophils # (Auto) 0.1 x10^3/uL Basophils # (Auto) 0.1 x10^3/uL Sodium Level 147 mmol/L Potassium Level 5.5 mmol/L Chloride Level 109 mmol/L Carbon Dioxide Level 27 mmol/L Anion Gap 11 Blood Urea Nitrogen 21 mg/dL Creatinine 1.1 mg/dL Estimated GFR (Cockcroft-Gault) 64.6 BUN/Creatinine Ratio 19 Glucose Level 120 mg/dL Calcium Level 9.5 mg/dL Total Bilirubin 1.4 mg/dL Aspartate Amino Transf (AST/SGOT) 17 U/L Alanine Aminotransferase (ALT/SGPT) 28 U/L Alkaline Phosphatase 29 U/L Total Protein 7.2 g/dL Albumin 3.5 g/dL Albumin/Globulin Ratio 0.9 Valproic Acid (Depakene) Level 17 mcg/mL Valproic Acid Last Dose Date 03/18/2021 Valproic Acid Last Dose Time 1700 Current Medications Medications (Trade) Dose Ordered Sig/Crista Route PRN Reason Start Time Stop Time Status Last Admin Dose Admin Acetaminophen (Tylenol) 650 mg PRN Q6HRS PRN PO MILD PAIN / TEMP > 100.3'F 03/13/21 21:30 Multi-Ingredient Ointment (Analgesic [place]) 1 mikala PRN QID PRN TP MUSCLE PAIN 03/13/21 21:30 Al Hydroxide/Mg Hydroxide (Mylanta Plus Xs) 15 ml PRN AFTMEALHC PRN PO DYSPEPSIA 03/13/21 21:30 Magnesium Hydroxide (Milk Of Magnesia) 2,400 mg PRN QHS PRN PO CONSTIPATION 03/13/21 21:30 Buspirone HCl (Buspar) 10 mg TID PO 03/13/21 22:15 03/17/21 14:18 DC 03/17/21 13:55 Quetiapine Fumarate (SEROquel) 50 mg PRN DAILY PRN PO prior to lab draws 03/13/21 21:45 03/18/21 17:12 Quetiapine Fumarate (SEROquel) 50 mg PRN Q6HRS PRN PO AGITATION 03/13/21 21:45 Quetiapine Fumarate (SEROquel) 100 mg HS PO 03/13/21 22:15 03/19/21 19:59 Trazodone HCl (Desyrel) 150 mg HS PO 03/13/21 22:15 03/19/21 19:59 Melatonin (Melatonin) 6 mg HS PO 03/13/21 22:15 03/19/21 19:58 Allopurinol (Zyloprim) 100 mg BID PO 03/14/21 12:15 03/20/21 08:36 Finasteride (Proscar) 5 mg DAILY PO 03/14/21 12:15 03/20/21 08:36 Furosemide (Lasix) 40 mg DAILY PO 03/14/21 12:15 03/20/21 08:36 Metoprolol Tartrate (Lopressor) 25 mg BID PO 03/14/21 12:15 03/19/21 19:59 Tamsulosin HCl (Flomax) 0.4 mg DAILY PO 03/14/21 12:15 03/20/21 08:36 Pantoprazole Sodium (Protonix) 40 mg DAILYAC PO 03/15/21 07:30 03/20/21 08:36 Polyethylene Glycol (miraLAX) 17 gm DAILY PO 03/14/21 12:00 03/20/21 08:36 Non-Formulary Medication (Potassium Chloride (Klor-Con 10)) 30 meq DAILY PO 03/15/21 09:00 03/15/21 10:26 DC Rivaroxaban (Xarelto) 20 mg DAILYBFRSUP PO 03/14/21 17:00 03/14/21 17:30 DC Rivaroxaban (Xarelto) 20 mg DAILYBFRSUP PO 03/14/21 17:30 03/19/21 16:56 Olanzapine (ZyPREXA ZYDIS) 2.5 mg PRN Q2HR PRN PO PSYCHOSIS 03/14/21 18:45 03/17/21 09:26 Divalproex Sodium (Depakote Sprinkles) 125 mg BID@0900,1700 PO 03/15/21 21:00 03/20/21 08:36 Sertraline HCl (Zoloft) 50 mg DAILY PO 03/16/21 09:00 03/20/21 08:36 I have reviewed the current psychotropics carefully including drug interactions. Risk benefit ratio favors no change other than as noted in my dictated progress note. Diagnosis: Problems: (1) Impulse control disorder, unspecified (2) Anxiety disorder, unspecified (3) Dementia, vascular, with depression (4) Dementia, vascular, with delusions (5) Dementia in Alzheimer's disease with depression (6) Dementia in Alzheimer's disease with delusions (7) Dementia of the Alzheimer's type with early onset with behavioral disturbance (8) Major neurocognitive disorder RONALD MENJIVAR MD Mar 20, 2021 09:23
--- NOTE | 2021-03-20 09:45 | PDOC ---
Exam Note: Kevin Note: This note is a late entry for 03/19/2021 covers elements not covered in my initial note. Subjective: The patient was seen individually in the evening of 03/19/2021 with Destinee B[place]MING[place], discussed and reviewed the chart. The patient slept 6-1/2 hours previous night. She is somewhat agitated, aggressive, confused, grabbing at staff, intrusive, took his medications. Review of Systems: Ambulation impaired in wheelchair. No CV, , pulmonary, eye, ENT system symptoms on review. Reliability poor. Mental Status Exam: The patient is oriented to himself. Insight and judgment, recent and remote memory, attention and concentration, fund of knowledge is poor consistent with his diagnoses. Laboratory Data: Reviewed. Impression: Major neurocognitive disorder Alzheimer vascular with delusion, depression, behavioral disturbance. Anxiety disorder unspecified. Impulse control disorder unspecified. Plan: No change from initial note. Assessment: Vital Signs/I&O: Vital Signs Date Time Temp Pulse Resp B/P (MAP) Pulse Ox O2 Delivery O2 Flow Rate FiO2 03/20/21 08:37 74 107/58 03/20/21 06:04 97.0 12 95 03/19/21 06:10 Room Air I & O 03/19/21 03/19/21 03/20/21 15:00 23:00 07:00 Intake Total 600 ml 840 ml Balance 600 ml 840 ml Labs: Laboratory Tests Test 03/19/21 11:42 White Blood Count 9.1 x10^3/uL (4.0-11.0) Red Blood Count 4.43 x10^6/uL (4.30-5.70) Hemoglobin 13.3 g/dL (13.0-17.5) Hematocrit 40.1 % (39.0-53.0) Mean Corpuscular Volume 91 fL (79-100) Mean Corpuscular Hemoglobin 30 pg (25-35) Mean Corpuscular Hemoglobin Concent 33 g/dL (31-37) Red Cell Distribution Width 16.3 % (11.5-14.5) H Platelet Count 237 x10^3/uL (140-400) Neutrophils (%) (Auto) 75 % (31-73) H Lymphocytes (%) (Auto) 16 % (24-48) L Monocytes (%) (Auto) 7 % (0-9) Eosinophils (%) (Auto) 1 % (0-3) Basophils (%) (Auto) 1 % (0-3) Neutrophils # (Auto) 6.9 x10^3uL (1.8-7.7) Lymphocytes # (Auto) 1.4 x10^3/uL (1.0-4.8) Monocytes # (Auto) 0.7 x10^3/uL (0.0-1.1) Eosinophils # (Auto) 0.1 x10^3/uL (0.0-0.7) Basophils # (Auto) 0.1 x10^3/uL (0.0-0.2) Sodium Level 147 mmol/L (136-145) H Potassium Level 5.5 mmol/L (3.5-5.1) H Chloride Level 109 mmol/L (98-107) H Carbon Dioxide Level 27 mmol/L (21-32) Anion Gap 11 (6-14) Blood Urea Nitrogen 21 mg/dL (8-26) Creatinine 1.1 mg/dL (0.7-1.3) Estimated GFR (Cockcroft-Gault) 64.6 BUN/Creatinine Ratio 19 (6-20) Glucose Level 120 mg/dL (70-99) H Calcium Level 9.5 mg/dL (8.5-10.1) Total Bilirubin 1.4 mg/dL (0.2-1.0) H Aspartate Amino Transferase (AST) 17 U/L (15-37) Alanine Aminotransferase (ALT) 28 U/L (16-63) Alkaline Phosphatase 29 U/L (46-116) L Total Protein 7.2 g/dL (6.4-8.2) Albumin 3.5 g/dL (3.4-5.0) Albumin/Globulin Ratio 0.9 (1.0-1.7) L Valproic Acid Level 17 mcg/mL (50-100) L Valproic Acid Last Dose Date 03/18/2021 Valproic Acid Last Dose Time 1700 Current Medications: Meds: Laboratory Tests Test 03/19/21 11:42 White Blood Count 9.1 x10^3/uL Red Blood Count 4.43 x10^6/uL Hemoglobin 13.3 g/dL Hematocrit 40.1 % Mean Corpuscular Volume 91 fL Mean Corpuscular Hemoglobin 30 pg Mean Corpuscular Hemoglobin Concent 33 g/dL Red Cell Distribution Width 16.3 % Platelet Count 237 x10^3/uL Neutrophils (%) (Auto) 75 % Lymphocytes (%) (Auto) 16 % Monocytes (%) (Auto) 7 % Eosinophils (%) (Auto) 1 % Basophils (%) (Auto) 1 % Neutrophils # (Auto) 6.9 x10^3uL Lymphocytes # (Auto) 1.4 x10^3/uL Monocytes # (Auto) 0.7 x10^3/uL Eosinophils # (Auto) 0.1 x10^3/uL Basophils # (Auto) 0.1 x10^3/uL Sodium Level 147 mmol/L Potassium Level 5.5 mmol/L Chloride Level 109 mmol/L Carbon Dioxide Level 27 mmol/L Anion Gap 11 Blood Urea Nitrogen 21 mg/dL Creatinine 1.1 mg/dL Estimated GFR (Cockcroft-Gault) 64.6 BUN/Creatinine Ratio 19 Glucose Level 120 mg/dL Calcium Level 9.5 mg/dL Total Bilirubin 1.4 mg/dL Aspartate Amino Transf (AST/SGOT) 17 U/L Alanine Aminotransferase (ALT/SGPT) 28 U/L Alkaline Phosphatase 29 U/L Total Protein 7.2 g/dL Albumin 3.5 g/dL Albumin/Globulin Ratio 0.9 Valproic Acid (Depakene) Level 17 mcg/mL Valproic Acid Last Dose Date 03/18/2021 Valproic Acid Last Dose Time 1700 Current Medications Medications (Trade) Dose Ordered Sig/Crista Route PRN Reason Start Time Stop Time Status Last Admin Dose Admin Acetaminophen (Tylenol) 650 mg PRN Q6HRS PRN PO MILD PAIN / TEMP > 100.3'F 03/13/21 21:30 Multi-Ingredient Ointment (Analgesic [place]) 1 mikala PRN QID PRN TP MUSCLE PAIN 03/13/21 21:30 Al Hydroxide/Mg Hydroxide (Mylanta Plus Xs) 15 ml PRN AFTMEALHC PRN PO DYSPEPSIA 03/13/21 21:30 Magnesium Hydroxide (Milk Of Magnesia) 2,400 mg PRN QHS PRN PO CONSTIPATION 03/13/21 21:30 Buspirone HCl (Buspar) 10 mg TID PO 03/13/21 22:15 03/17/21 14:18 DC 03/17/21 13:55 Quetiapine Fumarate (SEROquel) 50 mg PRN DAILY PRN PO prior to lab draws 03/13/21 21:45 03/18/21 17:12 Quetiapine Fumarate (SEROquel) 50 mg PRN Q6HRS PRN PO AGITATION 03/13/21 21:45 Quetiapine Fumarate (SEROquel) 100 mg HS PO 03/13/21 22:15 03/19/21 19:59 Trazodone HCl (Desyrel) 150 mg HS PO 03/13/21 22:15 03/19/21 19:59 Melatonin (Melatonin) 6 mg HS PO 03/13/21 22:15 03/19/21 19:58 Allopurinol (Zyloprim) 100 mg BID PO 03/14/21 12:15 03/20/21 08:36 Finasteride (Proscar) 5 mg DAILY PO 03/14/21 12:15 03/20/21 08:36 Furosemide (Lasix) 40 mg DAILY PO 03/14/21 12:15 03/20/21 08:36 Metoprolol Tartrate (Lopressor) 25 mg BID PO 03/14/21 12:15 03/19/21 19:59 Tamsulosin HCl (Flomax) 0.4 mg DAILY PO 03/14/21 12:15 03/20/21 08:36 Pantoprazole Sodium (Protonix) 40 mg DAILYAC PO 03/15/21 07:30 03/20/21 08:36 Polyethylene Glycol (miraLAX) 17 gm DAILY PO 03/14/21 12:00 03/20/21 08:36 Non-Formulary Medication (Potassium Chloride (Klor-Con 10)) 30 meq DAILY PO 03/15/21 09:00 03/15/21 10:26 DC Rivaroxaban (Xarelto) 20 mg DAILYBFRSUP PO 03/14/21 17:00 03/14/21 17:30 DC Rivaroxaban (Xarelto) 20 mg DAILYBFRSUP PO 03/14/21 17:30 03/19/21 16:56 Olanzapine (ZyPREXA ZYDIS) 2.5 mg PRN Q2HR PRN PO PSYCHOSIS 03/14/21 18:45 03/17/21 09:26 Divalproex Sodium (Depakote Sprinkles) 125 mg BID@0900,1700 PO 03/15/21 21:00 03/20/21 08:36 Sertraline HCl (Zoloft) 50 mg DAILY PO 03/16/21 09:00 03/20/21 08:36 I have reviewed the current psychotropics carefully including drug interactions. Risk benefit ratio favors no change other than as noted in my dictated progress note. Diagnosis: Problems: (1) Impulse control disorder, unspecified (2) Anxiety disorder, unspecified (3) Dementia, vascular, with depression (4) Dementia, vascular, with delusions (5) Dementia in Alzheimer's disease with depression (6) Dementia in Alzheimer's disease with delusions (7) Dementia of the Alzheimer's type with early onset with behavioral disturbance (8) Major neurocognitive disorder RONALD MENJIVAR MD Mar 20, 2021 09:45
[2021-03-20 16:15] VITALS: BP 98/65
[2021-03-20] MEDS: RIVAROXABAN 10 MG TABLET. PO SCH (18:08)
[2021-03-20] MEDS: traZODone 150 MG TABLET. PO SCH (19:33)
[2021-03-20] MEDS: MELATONIN 3 MG TABLET PO SCH (19:33)
[2021-03-20] MEDS: QUEtiapine 100 MG TABLET. PO SCH (19:34)
--- NOTE | 2021-03-20 21:25 | NUR ---
Nursing Note Pt sitting in dayroom, visiting with peers, female peer sitting by him stroking his hand and shoulders. Speaks in a word salad, none of the words are in relation with another. Pt not as manic as previous shifts, cooperative and compliant with meds. No behaviors, is easily re directed.
--- NOTE | 2021-03-20 22:00 | PDOC ---
Exam Note: Kevin Note: Please also refer to the separate dictated note~for this date of service dictated separately.~Patient seen individually. Discussed the patient with Nursing staff reviewed the chart.~Reviewed interim history and current functioning. Reviewed vital signs,~Labs/ Radiology~and current medications noted below. Continue current treatment with the changes noted in the dictated addendum note Assessment: Vital Signs/I&O: Vital Signs Date Time Temp Pulse Resp B/P (MAP) Pulse Ox O2 Delivery O2 Flow Rate FiO2 03/20/21 20:53 61 98/65 03/20/21 16:15 97.1 20 96 03/19/21 06:10 Room Air I & O 03/19/21 03/19/21 03/20/21 15:00 23:00 07:00 Intake Total 600 ml 840 ml Balance 600 ml 840 ml Current Medications: Meds: Current Medications Medications (Trade) Dose Ordered Sig/Crista Route PRN Reason Start Time Stop Time Status Last Admin Dose Admin Acetaminophen (Tylenol) 650 mg PRN Q6HRS PRN PO MILD PAIN / TEMP > 100.3'F 03/13/21 21:30 Multi-Ingredient Ointment (Analgesic [place]) 1 mikala PRN QID PRN TP MUSCLE PAIN 03/13/21 21:30 Al Hydroxide/Mg Hydroxide (Mylanta Plus Xs) 15 ml PRN AFTMEALHC PRN PO DYSPEPSIA 03/13/21 21:30 Magnesium Hydroxide (Milk Of Magnesia) 2,400 mg PRN QHS PRN PO CONSTIPATION 03/13/21 21:30 Buspirone HCl (Buspar) 10 mg TID PO 03/13/21 22:15 03/17/21 14:18 DC 03/17/21 13:55 Quetiapine Fumarate (SEROquel) 50 mg PRN DAILY PRN PO prior to lab draws 03/13/21 21:45 03/18/21 17:12 Quetiapine Fumarate (SEROquel) 50 mg PRN Q6HRS PRN PO AGITATION 03/13/21 21:45 Quetiapine Fumarate (SEROquel) 100 mg HS PO 03/13/21 22:15 03/20/21 19:34 Trazodone HCl (Desyrel) 150 mg HS PO 03/13/21 22:15 03/20/21 19:33 Melatonin (Melatonin) 6 mg HS PO 03/13/21 22:15 03/20/21 19:33 Allopurinol (Zyloprim) 100 mg BID PO 03/14/21 12:15 03/20/21 19:33 Finasteride (Proscar) 5 mg DAILY PO 03/14/21 12:15 03/20/21 08:36 Furosemide (Lasix) 40 mg DAILY PO 03/14/21 12:15 03/20/21 08:36 Metoprolol Tartrate (Lopressor) 25 mg BID PO 03/14/21 12:15 03/19/21 19:59 Tamsulosin HCl (Flomax) 0.4 mg DAILY PO 03/14/21 12:15 03/20/21 08:36 Pantoprazole Sodium (Protonix) 40 mg DAILYAC PO 03/15/21 07:30 03/20/21 08:36 Polyethylene Glycol (miraLAX) 17 gm DAILY PO 03/14/21 12:00 03/20/21 08:36 Non-Formulary Medication (Potassium Chloride (Klor-Con 10)) 30 meq DAILY PO 03/15/21 09:00 03/15/21 10:26 DC Rivaroxaban (Xarelto) 20 mg DAILYBFRSUP PO 03/14/21 17:00 03/14/21 17:30 DC Rivaroxaban (Xarelto) 20 mg DAILYBFRSUP PO 03/14/21 17:30 03/20/21 18:08 Olanzapine (ZyPREXA ZYDIS) 2.5 mg PRN Q2HR PRN PO PSYCHOSIS 03/14/21 18:45 03/17/21 09:26 Divalproex Sodium (Depakote Sprinkles) 125 mg BID@0900,1700 PO 03/15/21 21:00 03/20/21 17:56 DC 03/20/21 08:36 Sertraline HCl (Zoloft) 50 mg DAILY PO 03/16/21 09:00 03/20/21 08:36 Divalproex Sodium (Depakote Sprinkles) 250 mg BID@0900,1700 PO 03/20/21 18:00 03/20/21 18:08 Current Medications Medications (Trade) Dose Ordered Sig/Crista Route PRN Reason Start Time Stop Time Status Last Admin Dose Admin Divalproex Sodium (Depakote Sprinkles) 250 mg BID@0900,1700 PO 03/20/21 18:00 03/20/21 18:08 I have reviewed the current psychotropics carefully including drug interactions. Risk benefit ratio favors no change other than as noted in my dictated progress note. Diagnosis: Problems: (1) Major neurocognitive disorder due to Alzheimer's disease (2) Impulse control disorder, unspecified (3) Anxiety disorder, unspecified (4) Dementia, vascular, with depression (5) Dementia, vascular, with delusions (6) Dementia in Alzheimer's disease with depression (7) Dementia in Alzheimer's disease with delusions (8) Dementia of the Alzheimer's type with early onset with behavioral disturbance RONALD MENJIVAR MD Mar 20, 2021 22:00
[2021-03-21 06:03] VITALS: BP 143/78
--- NOTE | 2021-03-21 06:32 | PDOC ---
Exam Note: Kevin Note: This note is a late entry for 03/20/2021 covers elements not covered in my initial note. Subjective: The patient was seen individually in the evening of 03/20/2021 with Miroslava BIRMINGHAM, discussed and reviewed the chart. The patient slept 7 hours previous night. She has been less restless, still remains anxious, confused, grabbing at food and drinks off the dining table of other patients but redirects. Oral intake otherwise is poor. Review of Systems: Ambulation impaired in wheelchair. No CV, , pulmonary, eye, ENT system symptoms on review. Reliability poor. Mental Status Exam: The patient is oriented to himself. Insight and judgment, recent and remote memory, attention and concentration, fund of knowledge is poor consistent with his diagnoses. Laboratory Data: Reviewed. Impression: Major neurocognitive disorder Alzheimer vascular with delusion, depression, behavioral disturbance. Anxiety disorder unspecified. Impulse control disorder unspecified. Plan: Valproic acid level on 03/19 was 17 on Depakote Sprinkle 125 mg b.i.d. We will increase to 250 mg b.i.d. Check CBC, CMP, valproic acid level in 3 days. Maintain rest of the psychotropics unchanged. Assessment: Vital Signs/I&O: Vital Signs Date Time Temp Pulse Resp B/P (MAP) Pulse Ox O2 Delivery O2 Flow Rate FiO2 03/21/21 06:03 97.0 85 18 143/78 (99) 98 Room Air I & O 03/20/21 03/20/21 03/21/21 15:00 23:00 07:00 Intake Total 940 ml 240 ml 240 ml Balance 940 ml 240 ml 240 ml Current Medications: Meds: Current Medications Medications (Trade) Dose Ordered Sig/Crista Route PRN Reason Start Time Stop Time Status Last Admin Dose Admin Acetaminophen (Tylenol) 650 mg PRN Q6HRS PRN PO MILD PAIN / TEMP > 100.3'F 03/13/21 21:30 Multi-Ingredient Ointment (Analgesic [place]) 1 mikala PRN QID PRN TP MUSCLE PAIN 03/13/21 21:30 Al Hydroxide/Mg Hydroxide (Mylanta Plus Xs) 15 ml PRN AFTMEALHC PRN PO DYSPEPSIA 03/13/21 21:30 Magnesium Hydroxide (Milk Of Magnesia) 2,400 mg PRN QHS PRN PO CONSTIPATION 5/28/21 21:30 Buspirone HCl (Buspar) 10 mg TID PO 03/13/21 22:15 03/17/21 14:18 DC 03/17/21 13:55 Quetiapine Fumarate (SEROquel) 50 mg PRN DAILY PRN PO prior to lab draws 03/13/21 21:45 03/18/21 17:12 Quetiapine Fumarate (SEROquel) 50 mg PRN Q6HRS PRN PO AGITATION 03/13/21 21:45 Quetiapine Fumarate (SEROquel) 100 mg HS PO 03/13/21 22:15 03/20/21 19:34 Trazodone HCl (Desyrel) 150 mg HS PO 03/13/21 22:15 03/20/21 19:33 Melatonin (Melatonin) 6 mg HS PO 03/13/21 22:15 03/20/21 19:33 Allopurinol (Zyloprim) 100 mg BID PO 03/14/21 12:15 03/20/21 19:33 Finasteride (Proscar) 5 mg DAILY PO 03/14/21 12:15 03/20/21 08:36 Furosemide (Lasix) 40 mg DAILY PO 03/14/21 12:15 03/20/21 08:36 Metoprolol Tartrate (Lopressor) 25 mg BID PO 03/14/21 12:15 03/19/21 19:59 Tamsulosin HCl (Flomax) 0.4 mg DAILY PO 03/14/21 12:15 03/20/21 08:36 Pantoprazole Sodium (Protonix) 40 mg DAILYAC PO 03/15/21 07:30 03/20/21 08:36 Polyethylene Glycol (miraLAX) 17 gm DAILY PO 03/14/21 12:00 03/20/21 08:36 Non-Formulary Medication (Potassium Chloride (Klor-Con 10)) 30 meq DAILY PO 03/15/21 09:00 03/15/21 10:26 DC Rivaroxaban (Xarelto) 20 mg DAILYBFRSUP PO 03/14/21 17:00 03/14/21 17:30 DC Rivaroxaban (Xarelto) 20 mg DAILYBFRSUP PO 03/14/21 17:30 03/20/21 18:08 Olanzapine (ZyPREXA ZYDIS) 2.5 mg PRN Q2HR PRN PO PSYCHOSIS 03/14/21 18:45 03/17/21 09:26 Divalproex Sodium (Depakote Sprinkles) 125 mg BID@0900,1700 PO 03/15/21 21:00 03/20/21 17:56 DC 03/20/21 08:36 Sertraline HCl (Zoloft) 50 mg DAILY PO 03/16/21 09:00 03/20/21 08:36 Divalproex Sodium (Depakote Sprinkles) 250 mg BID@0900,1700 PO 03/20/21 18:00 03/20/21 18:08 Current Medications Medications (Trade) Dose Ordered Sig/Crista Route PRN Reason Start Time Stop Time Status Last Admin Dose Admin Divalproex Sodium (Depakote Sprinkles) 250 mg BID@0900,1700 PO 03/20/21 18:00 03/20/21 18:08 I have reviewed the current psychotropics carefully including drug interactions. Risk benefit ratio favors no change other than as noted in my dictated progress note. Diagnosis: Problems: (1) Impulse control disorder, unspecified (2) Anxiety disorder, unspecified (3) Dementia, vascular, with depression (4) Dementia, vascular, with delusions (5) Dementia in Alzheimer's disease with depression (6) Dementia in Alzheimer's disease with delusions (7) Dementia of the Alzheimer's type with early onset with behavioral disturbance (8) Major neurocognitive disorder RONALD MENJIVAR MD Mar 21, 2021 06:32
[2021-03-21] MEDS: PANTOPRAZOLE 40 MG TABLET. PO SCH (08:17)
[2021-03-21] MEDS: TAMSULOSIN 0.4 MG CAP.ER.24H. PO SCH (08:17)
[2021-03-21] MEDS: POLYETHYLENE GLYCOL 3350 17 GM PACKET. PO SCH (08:17)
[2021-03-21] MEDS: METOPROLOL TART IMMED RELEASE 25 MG TABLET. PO SCH ×2 (08:17→18:20)
[2021-03-21] MEDS: ALLOPURINOL 100 MG TABLET. PO SCH ×2 (08:18→18:21)
[2021-03-21] MEDS: DIVALPROEX 125 MG CAP.SPRINK PO SCH ×2 (08:18→16:39)
[2021-03-21] MEDS: SERTRALINE 50 MG TABLET. PO SCH (08:18)
[2021-03-21] MEDS: FUROSEMIDE 40 MG TABLET PO SCH (08:18)
[2021-03-21] MEDS: FINASTERIDE 5 MG TABLET. PO SCH (08:18)
[2021-03-21] MEDS: RIVAROXABAN 10 MG TABLET. PO SCH (16:40)
--- NOTE | 2021-03-21 16:42 | NUR ---
Pt has been wandering in halls. Has picked up articles of clothing from different rooms. Pt has taken meds in liquid. Tolerates well. Has been able to eat at DR table for meals without taking others tray items. Is resistive to redirection and with ADL. Has not been combative.
[2021-03-21] MEDS: traZODone 150 MG TABLET. PO SCH (18:20)
[2021-03-21] MEDS: MELATONIN 3 MG TABLET PO SCH (18:20)
[2021-03-21] MEDS: QUEtiapine 100 MG TABLET. PO SCH (18:21)
--- NOTE | 2021-03-21 21:55 | PDOC ---
Exam Note: Kevin Note: Please also refer to the separate dictated note~for this date of service dictated separately.~Patient seen individually. Discussed the patient with Nursing staff reviewed the chart.~Reviewed interim history and current functioning. Reviewed vital signs,~Labs/ Radiology~and current medications noted below. Continue current treatment with the changes noted in the dictated addendum note Assessment: Vital Signs/I&O: Vital Signs Date Time Temp Pulse Resp B/P (MAP) Pulse Ox O2 Delivery O2 Flow Rate FiO2 03/21/21 18:20 85 143/78 03/21/21 06:03 97.0 18 98 Room Air I & O 03/20/21 03/20/21 03/21/21 15:00 23:00 07:00 Intake Total 940 ml 240 ml 240 ml Balance 940 ml 240 ml 240 ml Current Medications: Meds: Current Medications Medications (Trade) Dose Ordered Sig/Crista Route PRN Reason Start Time Stop Time Status Last Admin Dose Admin Acetaminophen (Tylenol) 650 mg PRN Q6HRS PRN PO MILD PAIN / TEMP > 100.3'F 03/13/21 21:30 Multi-Ingredient Ointment (Analgesic [place]) 1 mikala PRN QID PRN TP MUSCLE PAIN 03/13/21 21:30 Al Hydroxide/Mg Hydroxide (Mylanta Plus Xs) 15 ml PRN AFTMEALHC PRN PO DYSPEPSIA 03/13/21 21:30 Magnesium Hydroxide (Milk Of Magnesia) 2,400 mg PRN QHS PRN PO CONSTIPATION 03/13/21 21:30 Buspirone HCl (Buspar) 10 mg TID PO 03/13/21 22:15 03/17/21 14:18 DC 03/17/21 13:55 Quetiapine Fumarate (SEROquel) 50 mg PRN DAILY PRN PO prior to lab draws 03/13/21 21:45 03/18/21 17:12 Quetiapine Fumarate (SEROquel) 50 mg PRN Q6HRS PRN PO AGITATION 03/13/21 21:45 Quetiapine Fumarate (SEROquel) 100 mg HS PO 03/13/21 22:15 03/21/21 18:21 Trazodone HCl (Desyrel) 150 mg HS PO 03/13/21 22:15 03/21/21 18:20 Melatonin (Melatonin) 6 mg HS PO 03/13/21 22:15 03/21/21 18:20 Allopurinol (Zyloprim) 100 mg BID PO 03/14/21 12:15 03/21/21 18:21 Finasteride (Proscar) 5 mg DAILY PO 03/14/21 12:15 03/21/21 08:18 Furosemide (Lasix) 40 mg DAILY PO 03/14/21 12:15 03/21/21 08:18 Metoprolol Tartrate (Lopressor) 25 mg BID PO 03/14/21 12:15 03/21/21 18:20 Tamsulosin HCl (Flomax) 0.4 mg DAILY PO 03/14/21 12:15 03/21/21 08:17 Pantoprazole Sodium (Protonix) 40 mg DAILYAC PO 03/15/21 07:30 03/21/21 08:17 Polyethylene Glycol (miraLAX) 17 gm DAILY PO 03/14/21 12:00 03/21/21 08:17 Non-Formulary Medication (Potassium Chloride (Klor-Con 10)) 30 meq DAILY PO 03/15/21 09:00 03/15/21 10:26 DC Rivaroxaban (Xarelto) 20 mg DAILYBFRSUP PO 03/14/21 17:00 03/14/21 17:30 DC Rivaroxaban (Xarelto) 20 mg DAILYBFRSUP PO 03/14/21 17:30 03/21/21 16:40 Olanzapine (ZyPREXA ZYDIS) 2.5 mg PRN Q2HR PRN PO PSYCHOSIS 03/14/21 18:45 03/17/21 09:26 Divalproex Sodium (Depakote Sprinkles) 125 mg BID@0900,1700 PO 03/15/21 21:00 03/20/21 17:56 DC 03/20/21 08:36 Sertraline HCl (Zoloft) 50 mg DAILY PO 03/16/21 09:00 03/21/21 08:18 Divalproex Sodium (Depakote Sprinkles) 250 mg BID@0900,1700 PO 03/20/21 18:00 03/21/21 16:39 I have reviewed the current psychotropics carefully including drug interactions. Risk benefit ratio favors no change other than as noted in my dictated progress note. Diagnosis: Problems: (1) Impulse control disorder, unspecified (2) Anxiety disorder, unspecified (3) Dementia, vascular, with depression (4) Dementia, vascular, with delusions (5) Dementia in Alzheimer's disease with depression (6) Dementia in Alzheimer's disease with delusions (7) Dementia of the Alzheimer's type with early onset with behavioral disturbance (8) Major neurocognitive disorder RONALD MENJIVAR MD Mar 21, 2021 21:55
--- NOTE | 2021-03-21 23:54 | NUR ---
Pt wandering unit this evening. Intrusive and restless. Speaks in word salad. Compliant with HS medications in liquid. Extremely resistive and combative with ADLs.
[2021-03-22 06:11] VITALS: BP 114/69
--- NOTE | 2021-03-22 06:36 | NUR ---
Pt woke up covered in feces this morning. Pt taken to shower. Extremely combative during shower, attempting to hit and kick throughout the shower.
[2021-03-22] MEDS: DIVALPROEX 125 MG CAP.SPRINK PO SCH ×2 (07:55→17:32)
[2021-03-22] MEDS: FINASTERIDE 5 MG TABLET. PO SCH (07:55)
[2021-03-22] MEDS: ALLOPURINOL 100 MG TABLET. PO SCH ×2 (07:55→19:48)
[2021-03-22] MEDS: METOPROLOL TART IMMED RELEASE 25 MG TABLET. PO SCH ×2 (07:55→19:48)
[2021-03-22] MEDS: PANTOPRAZOLE 40 MG TABLET. PO SCH (07:55)
[2021-03-22] MEDS: FUROSEMIDE 40 MG TABLET PO SCH (07:55)
[2021-03-22] MEDS: TAMSULOSIN 0.4 MG CAP.ER.24H. PO SCH (07:56)
[2021-03-22] MEDS: SERTRALINE 50 MG TABLET. PO SCH (07:56)
[2021-03-22] MEDS: POLYETHYLENE GLYCOL 3350 17 GM PACKET. PO SCH (08:02)
--- NOTE | 2021-03-22 09:54 | PDOC ---
Exam Note: Kevin Note: This note is a late entry for 03/21/2021 covers elements not covered in my initial note. Subjective: The patient was seen individually in the evening of 03/21/2021 with Wendi BIRMINGHAM, discussed and reviewed the chart. The patient slept 7 hours previous night. Per nursing report, Depakote seems to have slowed the patient down. He has been able to sit for longer periods of time, less wandering, still picking on his clothes. We will be repeating labs and level on 03/24. Adjust Depakote thereafter. Review of Systems: Ambulation impaired in wheelchair. No CV, , pulmonary, eye, ENT system symptoms on review. Reliability poor. Mental Status Exam: The patient is oriented to himself. Insight and judgment, recent and remote memory, attention and concentration, fund of knowledge is poor consistent with his diagnoses. Laboratory Data: Reviewed. Impression: Major neurocognitive disorder Alzheimer vascular with delusion, depression, behavioral disturbance. Anxiety disorder unspecified. Impulse control disorder unspecified. Plan: We will be repeating labs and level on 03/24. Adjust Depakote thereafter. Assessment: Vital Signs/I&O: Vital Signs Date Time Temp Pulse Resp B/P (MAP) Pulse Ox O2 Delivery O2 Flow Rate FiO2 03/22/21 07:55 80 114/69 03/22/21 06:11 98.0 20 100 Room Air I & O 03/21/21 03/21/21 03/22/21 15:00 23:00 07:00 Intake Total 840 ml 840 ml Balance 840 ml 840 ml Current Medications: Meds: Current Medications Medications (Trade) Dose Ordered Sig/Crista Route PRN Reason Start Time Stop Time Status Last Admin Dose Admin Acetaminophen (Tylenol) 650 mg PRN Q6HRS PRN PO MILD PAIN / TEMP > 100.3'F 03/13/21 21:30 Multi-Ingredient Ointment (Analgesic [place]) 1 mikala PRN QID PRN TP MUSCLE PAIN 03/13/21 21:30 Al Hydroxide/Mg Hydroxide (Mylanta Plus Xs) 15 ml PRN AFTMEALHC PRN PO DYSPEPSIA 03/13/21 21:30 Magnesium Hydroxide (Milk Of Magnesia) 2,400 mg PRN QHS PRN PO CONSTIPATION 03/13/21 21:30 Buspirone HCl (Buspar) 10 mg TID PO 03/13/21 22:15 03/17/21 14:18 DC 03/17/21 13:55 Quetiapine Fumarate (SEROquel) 50 mg PRN DAILY PRN PO prior to lab draws 03/13/21 21:45 03/18/21 17:12 Quetiapine Fumarate (SEROquel) 50 mg PRN Q6HRS PRN PO AGITATION 03/13/21 21:45 Quetiapine Fumarate (SEROquel) 100 mg HS PO 03/13/21 22:15 03/21/21 18:21 Trazodone HCl (Desyrel) 150 mg HS PO 03/13/21 22:15 03/21/21 18:20 Melatonin (Melatonin) 6 mg HS PO 03/13/21 22:15 03/21/21 18:20 Allopurinol (Zyloprim) 100 mg BID PO 03/14/21 12:15 03/22/21 07:55 Finasteride (Proscar) 5 mg DAILY PO 03/14/21 12:15 03/22/21 07:55 Furosemide (Lasix) 40 mg DAILY PO 03/14/21 12:15 03/22/21 07:55 Metoprolol Tartrate (Lopressor) 25 mg BID PO 03/14/21 12:15 03/22/21 07:55 Tamsulosin HCl (Flomax) 0.4 mg DAILY PO 03/14/21 12:15 03/22/21 07:56 Pantoprazole Sodium (Protonix) 40 mg DAILYAC PO 03/15/21 07:30 03/22/21 07:55 Polyethylene Glycol (miraLAX) 17 gm DAILY PO 03/14/21 12:00 03/21/21 08:17 Non-Formulary Medication (Potassium Chloride (Klor-Con 10)) 30 meq DAILY PO 03/15/21 09:00 03/15/21 10:26 DC Rivaroxaban (Xarelto) 20 mg DAILYBFRSUP PO 03/14/21 17:00 03/14/21 17:30 DC Rivaroxaban (Xarelto) 20 mg DAILYBFRSUP PO 03/14/21 17:30 03/21/21 16:40 Olanzapine (ZyPREXA ZYDIS) 2.5 mg PRN Q2HR PRN PO PSYCHOSIS 03/14/21 18:45 03/17/21 09:26 Divalproex Sodium (Depakote Sprinkles) 125 mg BID@0900,1700 PO 03/15/21 21:00 03/20/21 17:56 DC 03/20/21 08:36 Sertraline HCl (Zoloft) 50 mg DAILY PO 03/16/21 09:00 03/22/21 07:56 Divalproex Sodium (Depakote Sprinkles) 250 mg BID@0900,1700 PO 03/20/21 18:00 03/22/21 07:55 I have reviewed the current psychotropics carefully including drug interactions. Risk benefit ratio favors no change other than as noted in my dictated progress note. Diagnosis: Problems: (1) Impulse control disorder, unspecified (2) Anxiety disorder, unspecified (3) Dementia, vascular, with depression (4) Dementia, vascular, with delusions (5) Dementia in Alzheimer's disease with depression (6) Dementia in Alzheimer's disease with delusions (7) Dementia of the Alzheimer's type with early onset with behavioral disturbance (8) Major neurocognitive disorder RONALD MENJIVAR MD Mar 22, 2021 09:54
[2021-03-22] MEDS: RIVAROXABAN 10 MG TABLET. PO SCH (17:32)
[2021-03-22 19:45] VITALS: BP 154/75
[2021-03-22] MEDS: traZODone 150 MG TABLET. PO SCH (19:47)
[2021-03-22] MEDS: MELATONIN 3 MG TABLET PO SCH (19:47)
[2021-03-22] MEDS: QUEtiapine 100 MG TABLET. PO SCH (19:48)
--- NOTE | 2021-03-22 21:56 | PDOC ---
Exam Note: Kevin Note: Please also refer to the separate dictated note~for this date of service dictated separately.~Patient seen individually. Discussed the patient with Nursing staff reviewed the chart.~Reviewed interim history and current functioning. Reviewed vital signs,~Labs/ Radiology~and current medications noted below. Continue current treatment with the changes noted in the dictated addendum note Assessment: Vital Signs/I&O: Vital Signs Date Time Temp Pulse Resp B/P (MAP) Pulse Ox O2 Delivery O2 Flow Rate FiO2 03/22/21 19:48 81 154/75 03/22/21 06:11 98.0 20 100 Room Air I & O 03/21/21 03/21/21 03/22/21 15:00 23:00 07:00 Intake Total 840 ml 840 ml Balance 840 ml 840 ml Current Medications: Meds: Current Medications Medications (Trade) Dose Ordered Sig/Crista Route PRN Reason Start Time Stop Time Status Last Admin Dose Admin Acetaminophen (Tylenol) 650 mg PRN Q6HRS PRN PO MILD PAIN / TEMP > 100.3'F 03/13/21 21:30 Multi-Ingredient Ointment (Analgesic [place]) 1 mikala PRN QID PRN TP MUSCLE PAIN 03/13/21 21:30 Al Hydroxide/Mg Hydroxide (Mylanta Plus Xs) 15 ml PRN AFTMEALHC PRN PO DYSPEPSIA 03/13/21 21:30 Magnesium Hydroxide (Milk Of Magnesia) 2,400 mg PRN QHS PRN PO CONSTIPATION 03/13/21 21:30 Buspirone HCl (Buspar) 10 mg TID PO 03/13/21 22:15 03/17/21 14:18 DC 03/17/21 13:55 Quetiapine Fumarate (SEROquel) 50 mg PRN DAILY PRN PO prior to lab draws 03/13/21 21:45 03/18/21 17:12 Quetiapine Fumarate (SEROquel) 50 mg PRN Q6HRS PRN PO AGITATION 03/13/21 21:45 Quetiapine Fumarate (SEROquel) 100 mg HS PO 03/13/21 22:15 03/22/21 19:48 Trazodone HCl (Desyrel) 150 mg HS PO 03/13/21 22:15 03/22/21 19:47 Melatonin (Melatonin) 6 mg HS PO 03/13/21 22:15 03/22/21 19:47 Allopurinol (Zyloprim) 100 mg BID PO 03/14/21 12:15 03/22/21 19:48 Finasteride (Proscar) 5 mg DAILY PO 03/14/21 12:15 03/22/21 07:55 Furosemide (Lasix) 40 mg DAILY PO 03/14/21 12:15 03/22/21 07:55 Metoprolol Tartrate (Lopressor) 25 mg BID PO 03/14/21 12:15 03/22/21 19:48 Tamsulosin HCl (Flomax) 0.4 mg DAILY PO 03/14/21 12:15 03/22/21 07:56 Pantoprazole Sodium (Protonix) 40 mg DAILYAC PO 03/15/21 07:30 03/22/21 07:55 Polyethylene Glycol (miraLAX) 17 gm DAILY PO 03/14/21 12:00 03/21/21 08:17 Non-Formulary Medication (Potassium Chloride (Klor-Con 10)) 30 meq DAILY PO 03/15/21 09:00 03/15/21 10:26 DC Rivaroxaban (Xarelto) 20 mg DAILYBFRSUP PO 03/14/21 17:00 03/14/21 17:30 DC Rivaroxaban (Xarelto) 20 mg DAILYBFRSUP PO 03/14/21 17:30 03/22/21 17:32 Olanzapine (ZyPREXA ZYDIS) 2.5 mg PRN Q2HR PRN PO PSYCHOSIS 03/14/21 18:45 03/17/21 09:26 Divalproex Sodium (Depakote Sprinkles) 125 mg BID@0900,1700 PO 03/15/21 21:00 03/20/21 17:56 DC 03/20/21 08:36 Sertraline HCl (Zoloft) 50 mg DAILY PO 03/16/21 09:00 03/22/21 07:56 Divalproex Sodium (Depakote Sprinkles) 250 mg BID@0900,1700 PO 03/20/21 18:00 03/22/21 17:32 I have reviewed the current psychotropics carefully including drug interactions. Risk benefit ratio favors no change other than as noted in my dictated progress note. Diagnosis: Problems: (1) Impulse control disorder, unspecified (2) Anxiety disorder, unspecified (3) Dementia, vascular, with depression (4) Dementia, vascular, with delusions (5) Dementia in Alzheimer's disease with depression (6) Dementia in Alzheimer's disease with delusions (7) Dementia of the Alzheimer's type with early onset with behavioral disturbance (8) Major neurocognitive disorder RONALD MENJIVAR MD Mar 22, 2021 21:56
--- NOTE | 2021-03-22 22:41 | NUR ---
Pt wandering in the day room when approached. Pt disorganized, confused, and resistive. Pt resistive with assessment and medications. HS medications administered crushed in vanilla ice cream.
[2021-03-23 05:52] VITALS: BP 101/58
[2021-03-23] MEDS: DIVALPROEX 125 MG CAP.SPRINK PO SCH ×2 (08:02→17:21)
[2021-03-23] MEDS: SERTRALINE 50 MG TABLET. PO SCH (08:02)
[2021-03-23] MEDS: FINASTERIDE 5 MG TABLET. PO SCH (08:02)
[2021-03-23] MEDS: ALLOPURINOL 100 MG TABLET. PO SCH ×2 (08:02→19:34)
[2021-03-23] MEDS: PANTOPRAZOLE 40 MG TABLET. PO SCH (08:03)
[2021-03-23] MEDS: FUROSEMIDE 40 MG TABLET PO SCH (08:03)
[2021-03-23] MEDS: TAMSULOSIN 0.4 MG CAP.ER.24H. PO SCH (08:03)
[2021-03-23] MEDS: POLYETHYLENE GLYCOL 3350 17 GM PACKET. PO SCH (08:03)
[2021-03-23] MEDS: METOPROLOL TART IMMED RELEASE 25 MG TABLET. PO SCH ×2 (08:04→19:35)
--- NOTE | 2021-03-23 09:24 | PDOC ---
Exam Note: Kevin Note: This note is a late entry for 03/22/2021 covers elements not covered in my initial note. Subjective: The patient was seen individually in the evening of 03/22/2021 with Miroslava BIRMINGHAM, discussed and reviewed the chart. The patient slept 7-1/4 hours previous night. The patient has been more settled, less anxious, restless, able to sit in the dining table, less grabbing others arms or pulling, less resistive to cares. Review of Systems: Ambulation impaired in wheelchair. No CV, , pulmonary, eye, ENT system symptoms on review. Mental Status Exam: The patient is oriented to himself. Insight and judgment, recent and remote memory, attention and concentration, fund of knowledge is poor consistent with his diagnoses. Laboratory Data: Reviewed. Impression: Major neurocognitive disorder Alzheimer vascular with delusion, depression, behavioral disturbance. Anxiety disorder unspecified. Impulse control disorder unspecified. Plan: No change from initial note. Assessment: Vital Signs/I&O: Vital Signs Date Time Temp Pulse Resp B/P (MAP) Pulse Ox O2 Delivery O2 Flow Rate FiO2 03/23/21 08:04 78 101/58 03/23/21 05:52 97.4 20 97 Room Air I & O 03/22/21 03/22/21 03/23/21 15:00 23:00 07:00 Intake Total 960 ml 320 ml Balance 960 ml 320 ml Current Medications: Meds: Current Medications Medications (Trade) Dose Ordered Sig/Crista Route PRN Reason Start Time Stop Time Status Last Admin Dose Admin Acetaminophen (Tylenol) 650 mg PRN Q6HRS PRN PO MILD PAIN / TEMP > 100.3'F 03/13/21 21:30 Multi-Ingredient Ointment (Analgesic [place]) 1 mikala PRN QID PRN TP MUSCLE PAIN 03/13/21 21:30 Al Hydroxide/Mg Hydroxide (Mylanta Plus Xs) 15 ml PRN AFTMEALHC PRN PO DYSPEPSIA 03/13/21 21:30 Magnesium Hydroxide (Milk Of Magnesia) 2,400 mg PRN QHS PRN PO CONSTIPATION 03/13/21 21:30 Buspirone HCl (Buspar) 10 mg TID PO 03/13/21 22:15 03/17/21 14:18 DC 03/17/21 13:55 Quetiapine Fumarate (SEROquel) 50 mg PRN DAILY PRN PO prior to lab draws 03/13/21 21:45 03/18/21 17:12 Quetiapine Fumarate (SEROquel) 50 mg PRN Q6HRS PRN PO AGITATION 03/13/21 21:45 Quetiapine Fumarate (SEROquel) 100 mg HS PO 03/13/21 22:15 03/22/21 19:48 Trazodone HCl (Desyrel) 150 mg HS PO 03/13/21 22:15 03/22/21 19:47 Melatonin (Melatonin) 6 mg HS PO 03/13/21 22:15 03/22/21 19:47 Allopurinol (Zyloprim) 100 mg BID PO 03/14/21 12:15 03/23/21 08:02 Finasteride (Proscar) 5 mg DAILY PO 03/14/21 12:15 03/23/21 08:02 Furosemide (Lasix) 40 mg DAILY PO 03/14/21 12:15 03/23/21 08:03 Metoprolol Tartrate (Lopressor) 25 mg BID PO 03/14/21 12:15 03/22/21 19:48 Tamsulosin HCl (Flomax) 0.4 mg DAILY PO 03/14/21 12:15 03/23/21 08:03 Pantoprazole Sodium (Protonix) 40 mg DAILYAC PO 03/15/21 07:30 03/23/21 08:03 Polyethylene Glycol (miraLAX) 17 gm DAILY PO 03/14/21 12:00 03/21/21 08:17 Non-Formulary Medication (Potassium Chloride (Klor-Con 10)) 30 meq DAILY PO 03/15/21 09:00 03/15/21 10:26 DC Rivaroxaban (Xarelto) 20 mg DAILYBFRSUP PO 03/14/21 17:00 03/14/21 17:30 DC Rivaroxaban (Xarelto) 20 mg DAILYBFRSUP PO 03/14/21 17:30 03/22/21 17:32 Olanzapine (ZyPREXA ZYDIS) 2.5 mg PRN Q2HR PRN PO PSYCHOSIS 03/14/21 18:45 03/17/21 09:26 Divalproex Sodium (Depakote Sprinkles) 125 mg BID@0900,1700 PO 03/15/21 21:00 03/20/21 17:56 DC 03/20/21 08:36 Sertraline HCl (Zoloft) 50 mg DAILY PO 03/16/21 09:00 03/23/21 08:02 Divalproex Sodium (Depakote Sprinkles) 250 mg BID@0900,1700 PO 03/20/21 18:00 03/23/21 08:02 I have reviewed the current psychotropics carefully including drug interactions. Risk benefit ratio favors no change other than as noted in my dictated progress note. 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
--- NOTE | 2021-03-23 13:14 | NUR ---
WEEKLY ACTIVITY THERAPY NOTE Date of Admission: 03/13/21 Date of AT Assessment: 03/16 Precipitating behaviors that initiated intake and admission:it was reported that patient has been agitated, aggressive, combative with cares, sundowning, impulsive, has "poor safety" and refused medications and vital signs. Goal aimed:increase engagement and relaxation skills Initial Goal:Pt will participate in at least three individual or group Activity Therapy sessions before discharge. 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
--- NOTE | 2021-03-23 16:03 | NUR ---
Pt , Lila, participated in treatment team via telephone. Pt is eating roughly 75% of meals and sleeping on average 6 hours; however, pt did only get roughly 4 hours Tuesday and Tuesday. Pt continues to be impulsive and intrusive with peer and staff. Pt continues to wander the hallways and requires redirection. Pt is not combative with staff but more resistive in times of cares. It was explained that two staff members will distract pt and hold his hands, while one staff member will aid in cleaning pt and changing pt briefs. Pt did ask that staff attempt to shave pt. She can tell that he is clean and being cared for but knows that he typically does not like facial hair. In the event that pt gets irritated, she does not wish to cause any harm and is fine with pt facial hair continuing to grow out. Pt also stated that he will do anything for chocolate, so if it helps to 'bribe him to be less intrusive or you need him to do something, offer him chocolate".
[2021-03-23 16:04] VITALS: BP 137/89
--- NOTE | 2021-03-23 16:13 | TX PLAN ---
Interdisciplinary Tx Plan Admission Information March 13, 2021 at 19:45 Legal Status (on Admission): Voluntary DPOA/Guardian Name: Lila Grigsby Contact Other Contact Name: [facility] Other Contact Verified Code Status: DNR Allergies: Coded Allergies: No Known Drug Allergies (Unverified , 03/13/21) Diagnoses Primary Diagnosis: Major neurocognitive D/O, vascular Alzheimer's with delusions, depression with BD Reasons for Admission: Aggressive, Combative, Confusion/Disoriented, Poor impulse control Problem in Patient's Words: Decline in cognition based off his Dementia prognosis. Additional Admission Comments: According to the intake, pt is agitated, aggressive/combative at times of care, sundowning, impulsive, poor safety, refuses medications and vital signs. Problems Active Problems: Sundowning Impulsive Restless Resistive with Cares Agitated Wandering Inactive Problems: None Pt Strengths/Limitations Ability for [place]: Poor Cognitive Functioning/Ability: Poor Communication Skills/Ability: Poor Financial Resources: Good Insight/Judgement: Poor Intellectual Ability: Poor Physical Health: Poor Social Skills: Poor Stability in Family: Good Stability in School/Work: Poor Verbal Skills: Poor Discharge Criteria Discharge Criteria: No need for close observ., Adequate arrangements @DC, Improved behavior, Improved mood/thought Preliminary Discharge Plan Preliminary DC Plan: Placement Needed Special Precautions Fall Risk: Low Initial D/C Plan Pt will be sent to a Memory Care facility once stable. Identified Discharge Needs: Referrals to a higher level of care Currently Utilized Resources Currently Utilized Resources/P: Primary Care Physician Identified Problems/Hx/Goals Objectives/Short-Term Goals Short Term Goals: Dec. Aggression, Dec. Outbursts, Medication Stabilization, Monitor Med Effects, Promote Coping Skill Short Term Goals in Patient's: N/A Interventions/Frequency Staff Interventions/Frequency&: Psychiatrist to assess pt at least 3x per week for medication management. Social Work to assess pt at least 2x per week to identify barriers to care and finalize discharge planning. Nursing to assess medication effects, behavior modification and completion of 15 minute checks daily. Encourage participation in group activities (if applicable) or 1:1 engagement based off activity dept. goals. 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 Community Follow-up Primary Care Physician Community Provider/Family Inpu: Pt participated in treatement team via telephone. Treatment Plan Explained Patient/Manager Math had this treatment plan explained to him/her as indicated by the signature below and has been given the opportunity to ask questions and make suggestions: Date: Patient/Manager Math Signature: Status Update Update Pt , Lila, participated in treatment team via telephone. Pt is eating roughly 75% of meals and sleeping on average 6 hours; however, pt did only get roughly 4 hours Tuesday and Tuesday. Pt continues to be impulsive and intrusive with peer and staff. Pt continues to wander the hallways and requires redirection. Pt is not combative with staff but more resistive in times of cares. It was explained that two staff members will distract pt and hold his hands, while one staff member will aid in cleaning pt and changing pt briefs. Pt did ask that staff attempt to shave pt. She can tell that he is clean and being cared for but knows that he typically does not like facial hair. In the event that pt gets irritated, she does not wish to cause any harm and is fine with pt facial hair continuing to grow out. Pt also stated that he w ill do anything for chocolate, so if it helps to 'bribe him to be less intrusive or you need him to do something, offer him chocolate". ALBERT ULLOA Mar 23, 2021 16:13
[2021-03-23] MEDS: RIVAROXABAN 10 MG TABLET. PO SCH (17:21)
--- NOTE | 2021-03-23 18:23 | NUR ---
NSG NOTE; SHIFT SUMMARY Tomas has wandered some today but also spent time sitting in chairs in the dayroom and dining room where he is eating more of his meals. I crushed his meds and put them in juice which he will drink. At treatment team today, his stated that crushed meds in drinks has been the preferred method to get him to take his meds over the last two years. He walks up to people and talks to them but does not make sense. he does touch people a lot, but not in a sexual way. he cont to be resistant with cares, trying to pull away from the 3 staff members it takes to change his brief. he does not attempt to hit us, though.
[2021-03-23] MEDS: QUEtiapine 100 MG TABLET. PO SCH (19:35)
[2021-03-23] MEDS: MELATONIN 3 MG TABLET PO SCH (19:35)
[2021-03-23] MEDS: traZODone 150 MG TABLET. PO SCH (19:35)
--- NOTE | 2021-03-23 21:59 | PDOC ---
Exam Note: Kevin Note: Please also refer to the separate dictated note~for this date of service dictated separately.~Patient seen individually. Discussed the patient with Nursing staff reviewed the chart.~Reviewed interim history and current functioning. Reviewed vital signs,~Labs/ Radiology~and current medications noted below. Continue current treatment with the changes noted in the dictated addendum note Assessment: Vital Signs/I&O: Vital Signs Date Time Temp Pulse Resp B/P (MAP) Pulse Ox O2 Delivery O2 Flow Rate FiO2 03/23/21 19:35 66 137/89 03/23/21 16:04 97.1 20 98 03/23/21 05:52 Room Air I & O 03/22/21 03/22/21 03/23/21 14:59 22:59 06:59 Intake Total 960 ml 320 ml Balance 960 ml 320 ml Current Medications: Meds: Current Medications Medications (Trade) Dose Ordered Sig/Crista Route PRN Reason Start Time Stop Time Status Last Admin Dose Admin Acetaminophen (Tylenol) 650 mg PRN Q6HRS PRN PO MILD PAIN / TEMP > 100.3'F 03/13/21 21:30 Multi-Ingredient Ointment (Analgesic [place]) 1 mikala PRN QID PRN TP MUSCLE PAIN 03/13/21 21:30 Al Hydroxide/Mg Hydroxide (Mylanta Plus Xs) 15 ml PRN AFTMEALHC PRN PO DYSPEPSIA 03/13/21 21:30 Magnesium Hydroxide (Milk Of Magnesia) 2,400 mg PRN QHS PRN PO CONSTIPATION 03/13/21 21:30 Buspirone HCl (Buspar) 10 mg TID PO 03/13/21 22:15 03/17/21 14:18 DC 03/17/21 13:55 Quetiapine Fumarate (SEROquel) 50 mg PRN DAILY PRN PO prior to lab draws 03/13/21 21:45 03/18/21 17:12 Quetiapine Fumarate (SEROquel) 50 mg PRN Q6HRS PRN PO AGITATION 03/13/21 21:45 Quetiapine Fumarate (SEROquel) 100 mg HS PO 03/13/21 22:15 03/23/21 19:35 Trazodone HCl (Desyrel) 150 mg HS PO 03/13/21 22:15 03/23/21 19:35 Melatonin (Melatonin) 6 mg HS PO 03/13/21 22:15 03/23/21 19:35 Allopurinol (Zyloprim) 100 mg BID PO 03/14/21 12:15 03/23/21 19:34 Finasteride (Proscar) 5 mg DAILY PO 03/14/21 12:15 03/23/21 08:02 Furosemide (Lasix) 40 mg DAILY PO 03/14/21 12:15 03/23/21 08:03 Metoprolol Tartrate (Lopressor) 25 mg BID PO 03/14/21 12:15 03/23/21 19:35 Tamsulosin HCl (Flomax) 0.4 mg DAILY PO 03/14/21 12:15 03/23/21 08:03 Pantoprazole Sodium (Protonix) 40 mg DAILYAC PO 03/15/21 07:30 03/23/21 08:03 Polyethylene Glycol (miraLAX) 17 gm DAILY PO 03/14/21 12:00 03/21/21 08:17 Non-Formulary Medication (Potassium Chloride (Klor-Con 10)) 30 meq DAILY PO 03/15/21 09:00 03/15/21 10:26 DC Rivaroxaban (Xarelto) 20 mg DAILYBFRSUP PO 03/14/21 17:00 03/14/21 17:30 DC Rivaroxaban (Xarelto) 20 mg DAILYBFRSUP PO 03/14/21 17:30 03/23/21 17:21 Olanzapine (ZyPREXA ZYDIS) 2.5 mg PRN Q2HR PRN PO PSYCHOSIS 03/14/21 18:45 03/17/21 09:26 Divalproex Sodium (Depakote Sprinkles) 125 mg BID@0900,1700 PO 03/15/21 21:00 03/20/21 17:56 DC 03/20/21 08:36 Sertraline HCl (Zoloft) 50 mg DAILY PO 03/16/21 09:00 03/23/21 08:02 Divalproex Sodium (Depakote Sprinkles) 250 mg BID@0900,1700 PO 03/20/21 18:00 03/23/21 17:21 I have reviewed the current psychotropics carefully including drug interactions. Risk benefit ratio favors no change other than as noted in my dictated progress note. Diagnosis: Problems: (1) Impulse control disorder, unspecified (2) Anxiety disorder, unspecified (3) Dementia, vascular, with depression (4) Dementia, vascular, with delusions (5) Dementia in Alzheimer's disease with depression (6) Dementia in Alzheimer's disease with delusions (7) Dementia of the Alzheimer's type with early onset with behavioral disturbance (8) Major neurocognitive disorder RONALD MENJIVAR MD Mar 23, 2021 21:59
--- NOTE | 2021-03-23 23:41 | NUR ---
Pt sitting quietly in the day room when approached. Pt calm, confused, and disorganized. Pt cooperative with assessment and compliant with medications administered hidden in vanilla ice cream.
[2021-03-24 06:15] VITALS: BP 134/78
[2021-03-24] MEDS: SERTRALINE 50 MG TABLET. PO SCH (08:49)
[2021-03-24] MEDS: FINASTERIDE 5 MG TABLET. PO SCH (08:49)
[2021-03-24] MEDS: METOPROLOL TART IMMED RELEASE 25 MG TABLET. PO SCH ×2 (08:49→19:51)
[2021-03-24] MEDS: DIVALPROEX 125 MG CAP.SPRINK PO SCH ×3 (08:49→18:00)
[2021-03-24] MEDS: TAMSULOSIN 0.4 MG CAP.ER.24H. PO SCH (08:49)
[2021-03-24] MEDS: FUROSEMIDE 40 MG TABLET PO SCH (08:50)
[2021-03-24] MEDS: ALLOPURINOL 100 MG TABLET. PO SCH ×2 (08:50→19:41)
[2021-03-24] MEDS: PANTOPRAZOLE 40 MG TABLET. PO SCH (08:50)
[2021-03-24] MEDS: POLYETHYLENE GLYCOL 3350 17 GM PACKET. PO SCH (08:50)
--- NOTE | 2021-03-24 09:06 | PDOC ---
Exam Note: Kevin Note: This note is a late entry for 03/23/2021 covers elements not covered in my initial note. Subjective: The patient was reviewed in the morning of 03/23/2021 for a treatment team meeting with Amalia Campos, Madina Aguilar and Kerline (social services director), Guadalupe, activity therapy and Miroslava [place], discussed and reviewed the chart. The patient slept 7 hours previous night. The patients Lila attended the treatment team meeting. We had a lengthy discussion about his diagnoses, progress, current psychotropics. had many questions and we answered all of this. He had been less resistive, not combative. He did attend music groups. Appetite is 75%. Review of Systems: Ambulation impaired in wheelchair. No CV, , pulmonary, eye, ENT system symptoms on review. Reliability poor. Mental Status Exam: The patient is oriented to himself. Insight and judgment, recent and remote memory, attention and concentration, fund of knowledge is poor consistent with his diagnoses. Laboratory Data: Reviewed. Impression: Major neurocognitive disorder Alzheimer vascular with delusion, depression, behavioral disturbance. Anxiety disorder unspecified. Impulse control disorder unspecified. Plan: No change from initial note. Assessment: Vital Signs/I&O: Vital Signs Date Time Temp Pulse Resp B/P (MAP) Pulse Ox O2 Delivery O2 Flow Rate FiO2 03/24/21 08:49 73 134/78 03/24/21 06:15 96.4 18 99 Room Air I & O 03/23/21 03/23/21 03/24/21 15:00 23:00 07:00 Intake Total 840 ml 600 ml Balance 840 ml 600 ml Current Medications: Meds: Current Medications Medications (Trade) Dose Ordered Sig/Crista Route PRN Reason Start Time Stop Time Status Last Admin Dose Admin Acetaminophen (Tylenol) 650 mg PRN Q6HRS PRN PO MILD PAIN / TEMP > 100.3'F 03/13/21 21:30 Multi-Ingredient Ointment (Analgesic [place]) 1 mikala PRN QID PRN TP MUSCLE PAIN 03/13/21 21:30 Al Hydroxide/Mg Hydroxide (Mylanta Plus Xs) 15 ml PRN AFTMEALHC PRN PO DYSPEPSIA 03/13/21 21:30 Magnesium Hydroxide (Milk Of Magnesia) 2,400 mg PRN QHS PRN PO CONSTIPATION 5/28/21 21:30 Buspirone HCl (Buspar) 10 mg TID PO 03/13/21 22:15 03/17/21 14:18 DC 03/17/21 13:55 Quetiapine Fumarate (SEROquel) 50 mg PRN DAILY PRN PO prior to lab draws 03/13/21 21:45 03/18/21 17:12 Quetiapine Fumarate (SEROquel) 50 mg PRN Q6HRS PRN PO AGITATION 03/13/21 21:45 Quetiapine Fumarate (SEROquel) 100 mg HS PO 03/13/21 22:15 03/23/21 19:35 Trazodone HCl (Desyrel) 150 mg HS PO 03/13/21 22:15 03/23/21 19:35 Melatonin (Melatonin) 6 mg HS PO 03/13/21 22:15 03/23/21 19:35 Allopurinol (Zyloprim) 100 mg BID PO 03/14/21 12:15 03/24/21 08:50 Finasteride (Proscar) 5 mg DAILY PO 03/14/21 12:15 03/24/21 08:49 Furosemide (Lasix) 40 mg DAILY PO 03/14/21 12:15 03/24/21 08:50 Metoprolol Tartrate (Lopressor) 25 mg BID PO 03/14/21 12:15 03/24/21 08:49 Tamsulosin HCl (Flomax) 0.4 mg DAILY PO 03/14/21 12:15 03/24/21 08:49 Pantoprazole Sodium (Protonix) 40 mg DAILYAC PO 03/15/21 07:30 03/24/21 08:50 Polyethylene Glycol (miraLAX) 17 gm DAILY PO 03/14/21 12:00 03/24/21 08:50 Non-Formulary Medication (Potassium Chloride (Klor-Con 10)) 30 meq DAILY PO 03/15/21 09:00 03/15/21 10:26 DC Rivaroxaban (Xarelto) 20 mg DAILYBFRSUP PO 03/14/21 17:00 03/14/21 17:30 DC Rivaroxaban (Xarelto) 20 mg DAILYBFRSUP PO 03/14/21 17:30 03/23/21 17:21 Olanzapine (ZyPREXA ZYDIS) 2.5 mg PRN Q2HR PRN PO PSYCHOSIS 03/14/21 18:45 03/17/21 09:26 Divalproex Sodium (Depakote Sprinkles) 125 mg BID@0900,1700 PO 03/15/21 21:00 03/20/21 17:56 DC 03/20/21 08:36 Sertraline HCl (Zoloft) 50 mg DAILY PO 03/16/21 09:00 03/24/21 08:49 Divalproex Sodium (Depakote Sprinkles) 250 mg BID@0900,1700 PO 03/20/21 18:00 03/24/21 08:49 I have reviewed the current psychotropics carefully including drug interactions. Risk benefit ratio favors no change other than as noted in my dictated progress note. Diagnosis: Problems: (1) Impulse control disorder, unspecified (2) Anxiety disorder, unspecified (3) Dementia, vascular, with depression (4) Dementia, vascular, with delusions (5) Dementia in Alzheimer's disease with depression (6) Dementia in Alzheimer's disease with delusions (7) Dementia of the Alzheimer's type with early onset with behavioral disturbance (8) Major neurocognitive disorder RONALD MENJIVAR MD Mar 24, 2021 09:06
[2021-03-24 09:20] LABS: BASO # 0.1 x10^3/uL (0.0-0.2); BASO % 1 % (0-3); EOS # 0.2 x10^3/uL (0.0-0.7); EOS % 2 % (0-3); HEMATOCRIT 41.6 % (39.0-53.0); LYMPH # 1.2 x10^3/uL (1.0-4.8); LYMPH % 17 % (24-48); MEAN CORPUSCULAR HEMOGLOBIN 30 pg (25-35); MEAN CORPUSCULAR HGB CONC 34 g/dL (31-37); MEAN CORPUSCULAR VOLUME 89 fL (79-100); MONO # 0.4 x10^3/uL (0.0-1.1); MONO % 6 % (0-9); NEUT # 5.4 x10^3uL (1.8-7.7); NEUT % 74 % (31-73); PLATELET COUNT 211 x10^3/uL (140-400); RED BLOOD COUNT 4.66 x10^6/uL (4.30-5.70); RED CELL DISTRIBUTION WIDTH 16.5 % (11.5-14.5); WHITE BLOOD COUNT 7.3 x10^3/uL (4.0-11.0)
[2021-03-24 09:35] LABS: ALBUMIN/GLOBULIN RATIO 0.8 (1.0-1.7); ALK PHOS 32 U/L (46-116); ALT (SGPT) 17 U/L (16-63); ANION GAP 7 (6-14); AST (SGOT) 15 U/L (15-37); BLOOD UREA NITROGEN 12 mg/dL (8-26); BUN/CREATININE RATIO 13 (6-20); CALCIUM 8.6 mg/dL (8.5-10.1); CARBON DIOXIDE 28 mmol/L (21-32); CHLORIDE 108 mmol/L (98-107); CREATININE 0.9 mg/dL (0.7-1.3); GFR 81.4; GLUCOSE 112 mg/dL (70-99); POTASSIUM 3.8 mmol/L (3.5-5.1); SODIUM 143 mmol/L (136-145); TOTAL BILIRUBIN 0.8 mg/dL (0.2-1.0); TOTAL PROTEIN 6.6 g/dL (6.4-8.2); VAL ACID 30 mcg/mL (50-100)
[2021-03-24 15:58] VITALS: BP 98/59
[2021-03-24] MEDS: RIVAROXABAN 10 MG TABLET. PO SCH (17:21)
--- NOTE | 2021-03-24 18:30 | NUR ---
Patient has generally been calm, wandering, and pleasantly confused during this shift. Staff reports that he was resistive with having his brief changed. Patient was intrusive with other patients at mealtimes and attempted to take items off of their trays. He was not redirectable and required that he be put outside the dining room. Will continue to monitor and report to oncoming shift.
[2021-03-24] MEDS: MELATONIN 3 MG TABLET PO SCH (19:40)
[2021-03-24] MEDS: QUEtiapine 100 MG TABLET. PO SCH (19:41)
[2021-03-24] MEDS: traZODone 150 MG TABLET. PO SCH (19:41)
--- NOTE | 2021-03-24 22:17 | PDOC ---
Exam Note: Kevin Note: Please also refer to the separate dictated note~for this date of service dictated separately.~Patient seen individually. Discussed the patient with Nursing staff reviewed the chart.~Reviewed interim history and current functioning. Reviewed vital signs,~Labs/ Radiology~and current medications noted below. Continue current treatment with the changes noted in the dictated addendum note Assessment: Vital Signs/I&O: Vital Signs Date Time Temp Pulse Resp B/P (MAP) Pulse Ox O2 Delivery O2 Flow Rate FiO2 03/24/21 19:51 95 98/59 03/24/21 15:58 98.1 18 95 03/24/21 06:15 Room Air I & O 03/23/21 03/23/21 03/24/21 15:00 23:00 07:00 Intake Total 840 ml 600 ml Balance 840 ml 600 ml Labs: Laboratory Tests Test 03/24/21 09:13 White Blood Count 7.3 x10^3/uL (4.0-11.0) Red Blood Count 4.66 x10^6/uL (4.30-5.70) Hemoglobin 14.0 g/dL (13.0-17.5) Hematocrit 41.6 % (39.0-53.0) Mean Corpuscular Volume 89 fL (79-100) Mean Corpuscular Hemoglobin 30 pg (25-35) Mean Corpuscular Hemoglobin Concent 34 g/dL (31-37) Red Cell Distribution Width 16.5 % (11.5-14.5) H Platelet Count 211 x10^3/uL (140-400) Neutrophils (%) (Auto) 74 % (31-73) H Lymphocytes (%) (Auto) 17 % (24-48) L Monocytes (%) (Auto) 6 % (0-9) Eosinophils (%) (Auto) 2 % (0-3) Basophils (%) (Auto) 1 % (0-3) Neutrophils # (Auto) 5.4 x10^3uL (1.8-7.7) Lymphocytes # (Auto) 1.2 x10^3/uL (1.0-4.8) Monocytes # (Auto) 0.4 x10^3/uL (0.0-1.1) Eosinophils # (Auto) 0.2 x10^3/uL (0.0-0.7) Basophils # (Auto) 0.1 x10^3/uL (0.0-0.2) Sodium Level 143 mmol/L (136-145) Potassium Level 3.8 mmol/L (3.5-5.1) Chloride Level 108 mmol/L (98-107) H Carbon Dioxide Level 28 mmol/L (21-32) Anion Gap 7 (6-14) Blood Urea Nitrogen 12 mg/dL (8-26) Creatinine 0.9 mg/dL (0.7-1.3) Estimated GFR (Cockcroft-Gault) 81.4 BUN/Creatinine Ratio 13 (6-20) Glucose Level 112 mg/dL (70-99) H Calcium Level 8.6 mg/dL (8.5-10.1) Total Bilirubin 0.8 mg/dL (0.2-1.0) Aspartate Amino Transferase (AST) 15 U/L (15-37) Alanine Aminotransferase (ALT) 17 U/L (16-63) Alkaline Phosphatase 32 U/L (46-116) L Total Protein 6.6 g/dL (6.4-8.2) Albumin 3.0 g/dL (3.4-5.0) L Albumin/Globulin Ratio 0.8 (1.0-1.7) L Valproic Acid Level 30 mcg/mL (50-100) L Valproic Acid Last Dose Date 03/23/21 Valproic Acid Last Dose Time 1700 Current Medications: Meds: Laboratory Tests Test 03/24/21 09:13 White Blood Count 7.3 x10^3/uL Red Blood Count 4.66 x10^6/uL Hemoglobin 14.0 g/dL Hematocrit 41.6 % Mean Corpuscular Volume 89 fL Mean Corpuscular Hemoglobin 30 pg Mean Corpuscular Hemoglobin Concent 34 g/dL Red Cell Distribution Width 16.5 % Platelet Count 211 x10^3/uL Neutrophils (%) (Auto) 74 % Lymphocytes (%) (Auto) 17 % Monocytes (%) (Auto) 6 % Eosinophils (%) (Auto) 2 % Basophils (%) (Auto) 1 % Neutrophils # (Auto) 5.4 x10^3uL Lymphocytes # (Auto) 1.2 x10^3/uL Monocytes # (Auto) 0.4 x10^3/uL Eosinophils # (Auto) 0.2 x10^3/uL Basophils # (Auto) 0.1 x10^3/uL Sodium Level 143 mmol/L Potassium Level 3.8 mmol/L Chloride Level 108 mmol/L Carbon Dioxide Level 28 mmol/L Anion Gap 7 Blood Urea Nitrogen 12 mg/dL Creatinine 0.9 mg/dL Estimated GFR (Cockcroft-Gault) 81.4 BUN/Creatinine Ratio 13 Glucose Level 112 mg/dL Calcium Level 8.6 mg/dL Total Bilirubin 0.8 mg/dL Aspartate Amino Transf (AST/SGOT) 15 U/L Alanine Aminotransferase (ALT/SGPT) 17 U/L Alkaline Phosphatase 32 U/L Total Protein 6.6 g/dL Albumin 3.0 g/dL Albumin/Globulin Ratio 0.8 Valproic Acid (Depakene) Level 30 mcg/mL Valproic Acid Last Dose Date 03/23/21 Valproic Acid Last Dose Time 1700 Current Medications Medications (Trade) Dose Ordered Sig/Crista Route PRN Reason Start Time Stop Time Status Last Admin Dose Admin Acetaminophen (Tylenol) 650 mg PRN Q6HRS PRN PO MILD PAIN / TEMP > 100.3'F 03/13/21 21:30 Multi-Ingredient Ointment (Analgesic [place]) 1 mikala PRN QID PRN TP MUSCLE PAIN 03/13/21 21:30 Al Hydroxide/Mg Hydroxide (Mylanta Plus Xs) 15 ml PRN AFTMEALHC PRN PO DYSPEPSIA 03/13/21 21:30 Magnesium Hydroxide (Milk Of Magnesia) 2,400 mg PRN QHS PRN PO CONSTIPATION 03/13/21 21:30 Buspirone HCl (Buspar) 10 mg TID PO 03/13/21 22:15 03/17/21 14:18 DC 03/17/21 13:55 Quetiapine Fumarate (SEROquel) 50 mg PRN DAILY PRN PO prior to lab draws 03/13/21 21:45 03/18/21 17:12 Quetiapine Fumarate (SEROquel) 50 mg PRN Q6HRS PRN PO AGITATION 03/13/21 21:45 Quetiapine Fumarate (SEROquel) 100 mg HS PO 03/13/21 22:15 03/24/21 19:41 Trazodone HCl (Desyrel) 150 mg HS PO 03/13/21 22:15 03/24/21 19:41 Melatonin (Melatonin) 6 mg HS PO 03/13/21 22:15 03/24/21 19:40 Allopurinol (Zyloprim) 100 mg BID PO 03/14/21 12:15 03/24/21 19:41 Finasteride (Proscar) 5 mg DAILY PO 03/14/21 12:15 03/24/21 08:49 Furosemide (Lasix) 40 mg DAILY PO 03/14/21 12:15 03/24/21 08:50 Metoprolol Tartrate (Lopressor) 25 mg BID PO 03/14/21 12:15 03/24/21 08:49 Tamsulosin HCl (Flomax) 0.4 mg DAILY PO 03/14/21 12:15 03/24/21 08:49 Pantoprazole Sodium (Protonix) 40 mg DAILYAC PO 03/15/21 07:30 03/24/21 08:50 Polyethylene Glycol (miraLAX) 17 gm DAILY PO 03/14/21 12:00 03/24/21 08:50 Non-Formulary Medication (Potassium Chloride (Klor-Con 10)) 30 meq DAILY PO 03/15/21 09:00 03/15/21 10:26 DC Rivaroxaban (Xarelto) 20 mg DAILYBFRSUP PO 03/14/21 17:00 03/14/21 17:30 DC Rivaroxaban (Xarelto) 20 mg DAILYBFRSUP PO 03/14/21 17:30 03/24/21 17:21 Olanzapine (ZyPREXA ZYDIS) 2.5 mg PRN Q2HR PRN PO PSYCHOSIS 03/14/21 18:45 03/24/21 19:41 Divalproex Sodium (Depakote Sprinkles) 125 mg BID@0900,1700 PO 03/15/21 21:00 03/20/21 17:56 DC 03/20/21 08:36 Sertraline HCl (Zoloft) 50 mg DAILY PO 03/16/21 09:00 03/24/21 08:49 Divalproex Sodium (Depakote Sprinkles) 250 mg BID@0900,1700 PO 03/20/21 18:00 03/24/21 17:47 DC 03/24/21 17:20 Divalproex Sodium (Depakote Sprinkles) 375 mg BID@0900,1700 PO 03/24/21 18:00 I have reviewed the current psychotropics carefully including drug interactions. Risk benefit ratio favors no change other than as noted in my dictated progress note. Diagnosis: Problems: (1) Impulse control disorder, unspecified (2) Anxiety disorder, unspecified (3) Dementia, vascular, with depression (4) Dementia, vascular, with delusions (5) Dementia in Alzheimer's disease with depression (6) Dementia in Alzheimer's disease with delusions (7) Dementia of the Alzheimer's type with early onset with behavioral disturbance (8) Major neurocognitive disorder RONALD MENJIVAR MD Mar 24, 2021 22:17
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
[2021-03-25 06:35] VITALS: BP 142/78
--- NOTE | 2021-03-25 06:41 | PDOC ---
Exam Note: Kevin Note: This note is a late entry for 03/24/2021 covers elements not covered in my initial note. Subjective: The patient was seen individually in the evening of 03/24/2021 with Mark BIRMINGHAM, discussed and reviewed the chart. The patient slept 7-3/4 hours previous night. The patient remains confused, wandering, resistive to cares, intrusive, taking food off the tray of other patients, compliant with his medications. He takes them in Ensure. Valproic acid level today is 30 and we will increase the Depakote Sprinkles from 250 mg b.i.d. to 375 mg b.i.d Check CBC, CMP, valproic acid level in 3 days. Review of Systems: No CV, , pulmonary, eye, ENT system symptoms on review. Reliability poor. Mental Status Exam: The patient is oriented to himself. Insight and judgment, recent and remote memory, attention and concentration, fund of knowledge is poor consistent with his diagnoses. Laboratory Data: Reviewed. Impression: Major neurocognitive disorder Alzheimer vascular with delusion, depression, behavioral disturbance. Anxiety disorder unspecified. Impulse control disorder unspecified. Plan: No change from initial note and as noted above. Adjust further as clinically indicated. Assessment: Vital Signs/I&O: Vital Signs Date Time Temp Pulse Resp B/P (MAP) Pulse Ox O2 Delivery O2 Flow Rate FiO2 03/25/21 06:35 80 20 142/78 (99) 03/24/21 15:58 98.1 95 03/24/21 06:15 Room Air I & O 03/24/21 03/24/21 03/25/21 15:00 23:00 07:00 Intake Total 480 ml 480 ml Balance 480 ml 480 ml Labs: Laboratory Tests Test 03/24/21 09:13 White Blood Count 7.3 x10^3/uL (4.0-11.0) Red Blood Count 4.66 x10^6/uL (4.30-5.70) Hemoglobin 14.0 g/dL (13.0-17.5) Hematocrit 41.6 % (39.0-53.0) Mean Corpuscular Volume 89 fL (79-100) Mean Corpuscular Hemoglobin 30 pg (25-35) Mean Corpuscular Hemoglobin Concent 34 g/dL (31-37) Red Cell Distribution Width 16.5 % (11.5-14.5) H Platelet Count 211 x10^3/uL (140-400) Neutrophils (%) (Auto) 74 % (31-73) H Lymphocytes (%) (Auto) 17 % (24-48) L Monocytes (%) (Auto) 6 % (0-9) Eosinophils (%) (Auto) 2 % (0-3) Basophils (%) (Auto) 1 % (0-3) Neutrophils # (Auto) 5.4 x10^3uL (1.8-7.7) Lymphocytes # (Auto) 1.2 x10^3/uL (1.0-4.8) Monocytes # (Auto) 0.4 x10^3/uL (0.0-1.1) Eosinophils # (Auto) 0.2 x10^3/uL (0.0-0.7) Basophils # (Auto) 0.1 x10^3/uL (0.0-0.2) Sodium Level 143 mmol/L (136-145) Potassium Level 3.8 mmol/L (3.5-5.1) Chloride Level 108 mmol/L (98-107) H Carbon Dioxide Level 28 mmol/L (21-32) Anion Gap 7 (6-14) Blood Urea Nitrogen 12 mg/dL (8-26) Creatinine 0.9 mg/dL (0.7-1.3) Estimated GFR (Cockcroft-Gault) 81.4 BUN/Creatinine Ratio 13 (6-20) Glucose Level 112 mg/dL (70-99) H Calcium Level 8.6 mg/dL (8.5-10.1) Total Bilirubin 0.8 mg/dL (0.2-1.0) Aspartate Amino Transferase (AST) 15 U/L (15-37) Alanine Aminotransferase (ALT) 17 U/L (16-63) Alkaline Phosphatase 32 U/L (46-116) L Total Protein 6.6 g/dL (6.4-8.2) Albumin 3.0 g/dL (3.4-5.0) L Albumin/Globulin Ratio 0.8 (1.0-1.7) L Valproic Acid Level 30 mcg/mL (50-100) L Valproic Acid Last Dose Date 03/23/21 Valproic Acid Last Dose Time 1700 Current Medications: Meds: Laboratory Tests Test 03/24/21 09:13 White Blood Count 7.3 x10^3/uL Red Blood Count 4.66 x10^6/uL Hemoglobin 14.0 g/dL Hematocrit 41.6 % Mean Corpuscular Volume 89 fL Mean Corpuscular Hemoglobin 30 pg Mean Corpuscular Hemoglobin Concent 34 g/dL Red Cell Distribution Width 16.5 % Platelet Count 211 x10^3/uL Neutrophils (%) (Auto) 74 % Lymphocytes (%) (Auto) 17 % Monocytes (%) (Auto) 6 % Eosinophils (%) (Auto) 2 % Basophils (%) (Auto) 1 % Neutrophils # (Auto) 5.4 x10^3uL Lymphocytes # (Auto) 1.2 x10^3/uL Monocytes # (Auto) 0.4 x10^3/uL Eosinophils # (Auto) 0.2 x10^3/uL Basophils # (Auto) 0.1 x10^3/uL Sodium Level 143 mmol/L Potassium Level 3.8 mmol/L Chloride Level 108 mmol/L Carbon Dioxide Level 28 mmol/L Anion Gap 7 Blood Urea Nitrogen 12 mg/dL Creatinine 0.9 mg/dL Estimated GFR (Cockcroft-Gault) 81.4 BUN/Creatinine Ratio 13 Glucose Level 112 mg/dL Calcium Level 8.6 mg/dL Total Bilirubin 0.8 mg/dL Aspartate Amino Transf (AST/SGOT) 15 U/L Alanine Aminotransferase (ALT/SGPT) 17 U/L Alkaline Phosphatase 32 U/L Total Protein 6.6 g/dL Albumin 3.0 g/dL Albumin/Globulin Ratio 0.8 Valproic Acid (Depakene) Level 30 mcg/mL Valproic Acid Last Dose Date 03/23/21 Valproic Acid Last Dose Time 1700 Current Medications Medications (Trade) Dose Ordered Sig/Crista Route PRN Reason Start Time Stop Time Status Last Admin Dose Admin Acetaminophen (Tylenol) 650 mg PRN Q6HRS PRN PO MILD PAIN / TEMP > 100.3'F 03/13/21 21:30 Multi-Ingredient Ointment (Analgesic [place]) 1 mikala PRN QID PRN TP MUSCLE PAIN 03/13/21 21:30 Al Hydroxide/Mg Hydroxide (Mylanta Plus Xs) 15 ml PRN AFTMEALHC PRN PO DYSPEPSIA 03/13/21 21:30 Magnesium Hydroxide (Milk Of Magnesia) 2,400 mg PRN QHS PRN PO CONSTIPATION 03/13/21 21:30 Buspirone HCl (Buspar) 10 mg TID PO 03/13/21 22:15 03/17/21 14:18 DC 03/17/21 13:55 Quetiapine Fumarate (SEROquel) 50 mg PRN DAILY PRN PO prior to lab draws 03/13/21 21:45 03/18/21 17:12 Quetiapine Fumarate (SEROquel) 50 mg PRN Q6HRS PRN PO AGITATION 03/13/21 21:45 Quetiapine Fumarate (SEROquel) 100 mg HS PO 03/13/21 22:15 03/24/21 19:41 Trazodone HCl (Desyrel) 150 mg HS PO 03/13/21 22:15 03/24/21 19:41 Melatonin (Melatonin) 6 mg HS PO 03/13/21 22:15 03/24/21 19:40 Allopurinol (Zyloprim) 100 mg BID PO 03/14/21 12:15 03/24/21 19:41 Finasteride (Proscar) 5 mg DAILY PO 03/14/21 12:15 03/24/21 08:49 Furosemide (Lasix) 40 mg DAILY PO 03/14/21 12:15 03/24/21 08:50 Metoprolol Tartrate (Lopressor) 25 mg BID PO 03/14/21 12:15 03/24/21 08:49 Tamsulosin HCl (Flomax) 0.4 mg DAILY PO 03/14/21 12:15 03/24/21 08:49 Pantoprazole Sodium (Protonix) 40 mg DAILYAC PO 03/15/21 07:30 03/24/21 08:50 Polyethylene Glycol (miraLAX) 17 gm DAILY PO 03/14/21 12:00 03/24/21 08:50 Non-Formulary Medication (Potassium Chloride (Klor-Con 10)) 30 meq DAILY PO 03/15/21 09:00 03/15/21 10:26 DC Rivaroxaban (Xarelto) 20 mg DAILYBFRSUP PO 03/14/21 17:00 03/14/21 17:30 DC Rivaroxaban (Xarelto) 20 mg DAILYBFRSUP PO 03/14/21 17:30 03/24/21 17:21 Olanzapine (ZyPREXA ZYDIS) 2.5 mg PRN Q2HR PRN PO PSYCHOSIS 03/14/21 18:45 03/24/21 19:41 Divalproex Sodium (Depakote Sprinkles) 125 mg BID@0900,1700 PO 03/15/21 21:00 03/20/21 17:56 DC 03/20/21 08:36 Sertraline HCl (Zoloft) 50 mg DAILY PO 03/16/21 09:00 03/24/21 08:49 Divalproex Sodium (Depakote Sprinkles) 250 mg BID@0900,1700 PO 03/20/21 18:00 03/24/21 17:47 DC 03/24/21 17:20 Divalproex Sodium (Depakote Sprinkles) 375 mg BID@0900,1700 PO 03/24/21 18:00 I have reviewed the current psychotropics carefully including drug interactions. Risk benefit ratio favors no change other than as noted in my dictated progress note. Diagnosis: Problems: (1) Impulse control disorder, unspecified (2) Anxiety disorder, unspecified (3) Dementia, vascular, with depression (4) Dementia, vascular, with delusions (5) Dementia in Alzheimer's disease with depression (6) Dementia in Alzheimer's disease with delusions (7) Dementia of the Alzheimer's type with early onset with behavioral disturbance (8) Major neurocognitive disorder RONALD MENJIVAR MD Mar 25, 2021 06:41
[2021-03-25] MEDS: TAMSULOSIN 0.4 MG CAP.ER.24H. PO SCH (10:14)
[2021-03-25] MEDS: DIVALPROEX 125 MG CAP.SPRINK PO SCH ×2 (10:14→17:35)
[2021-03-25] MEDS: ALLOPURINOL 100 MG TABLET. PO SCH ×2 (10:15→20:29)
[2021-03-25] MEDS: FUROSEMIDE 40 MG TABLET PO SCH (10:15)
[2021-03-25] MEDS: METOPROLOL TART IMMED RELEASE 25 MG TABLET. PO SCH ×2 (10:15→20:30)
[2021-03-25] MEDS: FINASTERIDE 5 MG TABLET. PO SCH (10:15)
[2021-03-25] MEDS: SERTRALINE 50 MG TABLET. PO SCH (10:15)
[2021-03-25] MEDS: POLYETHYLENE GLYCOL 3350 17 GM PACKET. PO SCH (10:15)
[2021-03-25] MEDS: PANTOPRAZOLE 40 MG TABLET. PO SCH (10:15)
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
[2021-03-25 15:53] VITALS: BP 90/62
[2021-03-25] MEDS: RIVAROXABAN 10 MG TABLET. PO SCH (17:35)
[2021-03-25] MEDS: QUEtiapine 50 MG TABLET. PO PRN (17:55)
--- NOTE | 2021-03-25 17:58 | NUR ---
Patient has been increasingly intrusive with other patients and resistive to redirection. He was removed from the dining room for taking food from other patient's trays. Patient has been out wandering in the hallway, becoming increasingly agitated. PRN medications provided per eMAR, will continue to monitor.
[2021-03-25] MEDS: MELATONIN 3 MG TABLET PO SCH (20:29)
[2021-03-25] MEDS: QUEtiapine 100 MG TABLET. PO SCH (20:29)
[2021-03-25] MEDS: traZODone 150 MG TABLET. PO SCH (20:30)
--- NOTE | 2021-03-25 22:04 | PDOC ---
Exam Note: Kevin Note: Please also refer to the separate dictated note~for this date of service dictated separately.~Patient seen individually. Discussed the patient with Nursing staff reviewed the chart.~Reviewed interim history and current functioning. Reviewed vital signs,~Labs/ Radiology~and current medications noted below. Continue current treatment with the changes noted in the dictated addendum note Assessment: Vital Signs/I&O: Vital Signs Date Time Temp Pulse Resp B/P (MAP) Pulse Ox O2 Delivery O2 Flow Rate FiO2 03/25/21 20:30 70 90/62 03/25/21 15:53 98.4 20 95 03/24/21 06:15 Room Air I & O 03/24/21 03/24/21 03/25/21 15:00 23:00 07:00 Intake Total 480 ml 480 ml Balance 480 ml 480 ml Current Medications: Meds: Current Medications Medications (Trade) Dose Ordered Sig/Crista Route PRN Reason Start Time Stop Time Status Last Admin Dose Admin Acetaminophen (Tylenol) 650 mg PRN Q6HRS PRN PO MILD PAIN / TEMP > 100.3'F 03/13/21 21:30 Multi-Ingredient Ointment (Analgesic [place]) 1 mikala PRN QID PRN TP MUSCLE PAIN 03/13/21 21:30 Al Hydroxide/Mg Hydroxide (Mylanta Plus Xs) 15 ml PRN AFTMEALHC PRN PO DYSPEPSIA 03/13/21 21:30 Magnesium Hydroxide (Milk Of Magnesia) 2,400 mg PRN QHS PRN PO CONSTIPATION 03/13/21 21:30 Buspirone HCl (Buspar) 10 mg TID PO 03/13/21 22:15 03/17/21 14:18 DC 03/17/21 13:55 Quetiapine Fumarate (SEROquel) 50 mg PRN DAILY PRN PO prior to lab draws 03/13/21 21:45 03/25/21 17:55 Quetiapine Fumarate (SEROquel) 50 mg PRN Q6HRS PRN PO AGITATION 03/13/21 21:45 Quetiapine Fumarate (SEROquel) 100 mg HS PO 03/13/21 22:15 03/25/21 20:29 Trazodone HCl (Desyrel) 150 mg HS PO 03/13/21 22:15 03/25/21 20:30 Melatonin (Melatonin) 6 mg HS PO 03/13/21 22:15 03/25/21 20:29 Allopurinol (Zyloprim) 100 mg BID PO 03/14/21 12:15 03/25/21 20:29 Finasteride (Proscar) 5 mg DAILY PO 03/14/21 12:15 03/25/21 10:15 Furosemide (Lasix) 40 mg DAILY PO 03/14/21 12:15 03/25/21 10:15 Metoprolol Tartrate (Lopressor) 25 mg BID PO 03/14/21 12:15 03/25/21 20:30 Tamsulosin HCl (Flomax) 0.4 mg DAILY PO 03/14/21 12:15 03/25/21 10:14 Pantoprazole Sodium (Protonix) 40 mg DAILYAC PO 03/15/21 07:30 03/25/21 10:15 Polyethylene Glycol (miraLAX) 17 gm DAILY PO 03/14/21 12:00 03/25/21 11:44 DC 03/25/21 10:15 Non-Formulary Medication (Potassium Chloride (Klor-Con 10)) 30 meq DAILY PO 03/15/21 09:00 03/15/21 10:26 DC Rivaroxaban (Xarelto) 20 mg DAILYBFRSUP PO 03/14/21 17:00 03/14/21 17:30 DC Rivaroxaban (Xarelto) 20 mg DAILYBFRSUP PO 03/14/21 17:30 03/25/21 17:35 Olanzapine (ZyPREXA ZYDIS) 2.5 mg PRN Q2HR PRN PO PSYCHOSIS 03/14/21 18:45 03/25/21 17:54 Divalproex Sodium (Depakote Sprinkles) 125 mg BID@0900,1700 PO 03/15/21 21:00 03/20/21 17:56 DC 03/20/21 08:36 Sertraline HCl (Zoloft) 50 mg DAILY PO 03/16/21 09:00 03/25/21 10:15 Divalproex Sodium (Depakote Sprinkles) 250 mg BID@0900,1700 PO 03/20/21 18:00 03/24/21 17:47 DC 03/24/21 17:20 Divalproex Sodium (Depakote Sprinkles) 375 mg BID@0900,1700 PO 03/24/21 18:00 03/25/21 17:35 I have reviewed the current psychotropics carefully including drug interactions. Risk benefit ratio favors no change other than as noted in my dictated progress note. Diagnosis: Problems: (1) Impulse control disorder, unspecified (2) Anxiety disorder, unspecified (3) Dementia, vascular, with depression (4) Dementia, vascular, with delusions (5) Dementia in Alzheimer's disease with depression (6) Dementia in Alzheimer's disease with delusions (7) Dementia of the Alzheimer's type with early onset with behavioral disturbance (8) Major neurocognitive disorder RONALD MENJIVAR MD Mar 25, 2021 22:04
--- NOTE | 2021-03-26 01:20 | NUR ---
Magaly pt either sat in the day room or walked in the hallway. He remains confused and responds to questions with garbled rambling response. He was resistive with HS cares. Meds were given crushed in pudding and he has been sleeping since going to bed.
[2021-03-26 05:50] VITALS: BP 136/88
--- NOTE | 2021-03-26 07:08 | PDOC ---
Exam Note: Kevin Note: This note is a late entry for 03/25/2021 covers elements not covered in my initial note. Subjective: The patient was seen individually in the evening of 03/25/2021 with Mark B[place]AM, discussed and reviewed the chart. The patient slept 6-3/4 hours previous night. The patient remains confused, gets intermittently somewhat restless, combative but less physically than before. Valproic acid level will be checked on 03/28 and we will adjust thereafter to reach therapeutic level. We also received a call from [facility] [employer] who was meeting with the patients discussing placement options. He continues to impulsively pickup food from the plates of other patients, does redirect. Review of Systems: No CV, , pulmonary, eye, ENT system symptoms on review. Reliability poor. Mental Status Exam: The patient is oriented to himself. Insight and judgment, recent and remote memory, attention and concentration, fund of knowledge is poor consistent with his diagnoses. Laboratory Data: Reviewed. Impression: Major neurocognitive disorder Alzheimer vascular with delusion, depression, behavioral disturbance. Anxiety disorder unspecified. Impulse control disorder unspecified. Plan: No change from initial note. Check a valproic acid level on 03/28 and then adjust the Depakote, rest unchanged. Assessment: Vital Signs/I&O: Vital Signs Date Time Temp Pulse Resp B/P (MAP) Pulse Ox O2 Delivery O2 Flow Rate FiO2 03/26/21 05:50 97.1 57 18 136/88 (104) 98 Room Air I & O 03/25/21 03/25/21 03/26/21 15:00 23:00 07:00 Intake Total 720 ml 480 ml Balance 720 ml 480 ml Current Medications: Meds: Current Medications Medications (Trade) Dose Ordered Sig/Crista Route PRN Reason Start Time Stop Time Status Last Admin Dose Admin Acetaminophen (Tylenol) 650 mg PRN Q6HRS PRN PO MILD PAIN / TEMP > 100.3'F 03/13/21 21:30 Multi-Ingredient Ointment (Analgesic [place]) 1 mikala PRN QID PRN TP MUSCLE PAIN 03/13/21 21:30 Al Hydroxide/Mg Hydroxide (Mylanta Plus Xs) 15 ml PRN AFTMEALHC PRN PO DYSPEPSIA 03/13/21 21:30 Magnesium Hydroxide (Milk Of Magnesia) 2,400 mg PRN QHS PRN PO CONSTIPATION 03/13/21 21:30 Buspirone HCl (Buspar) 10 mg TID PO 03/13/21 22:15 03/17/21 14:18 DC 03/17/21 13:55 Quetiapine Fumarate (SEROquel) 50 mg PRN DAILY PRN PO prior to lab draws 03/13/21 21:45 03/25/21 17:55 Quetiapine Fumarate (SEROquel) 50 mg PRN Q6HRS PRN PO AGITATION 03/13/21 21:45 Quetiapine Fumarate (SEROquel) 100 mg HS PO 03/13/21 22:15 03/25/21 20:29 Trazodone HCl (Desyrel) 150 mg HS PO 03/13/21 22:15 03/25/21 20:30 Melatonin (Melatonin) 6 mg HS PO 03/13/21 22:15 03/25/21 20:29 Allopurinol (Zyloprim) 100 mg BID PO 03/14/21 12:15 03/25/21 20:29 Finasteride (Proscar) 5 mg DAILY PO 03/14/21 12:15 03/25/21 10:15 Furosemide (Lasix) 40 mg DAILY PO 03/14/21 12:15 03/25/21 10:15 Metoprolol Tartrate (Lopressor) 25 mg BID PO 03/14/21 12:15 03/25/21 20:30 Tamsulosin HCl (Flomax) 0.4 mg DAILY PO 03/14/21 12:15 03/25/21 10:14 Pantoprazole Sodium (Protonix) 40 mg DAILYAC PO 03/15/21 07:30 03/25/21 10:15 Polyethylene Glycol (miraLAX) 17 gm DAILY PO 03/14/21 12:00 03/25/21 11:44 DC 03/25/21 10:15 Non-Formulary Medication (Potassium Chloride (Klor-Con 10)) 30 meq DAILY PO 03/15/21 09:00 03/15/21 10:26 DC Rivaroxaban (Xarelto) 20 mg DAILYBFRSUP PO 03/14/21 17:00 03/14/21 17:30 DC Rivaroxaban (Xarelto) 20 mg DAILYBFRSUP PO 03/14/21 17:30 6/9/21 17:35 Olanzapine (ZyPREXA ZYDIS) 2.5 mg PRN Q2HR PRN PO PSYCHOSIS 03/14/21 18:45 03/25/21 17:54 Divalproex Sodium (Depakote Sprinkles) 125 mg BID@0900,1700 PO 03/15/21 21:00 03/20/21 17:56 DC 03/20/21 08:36 Sertraline HCl (Zoloft) 50 mg DAILY PO 03/16/21 09:00 03/25/21 10:15 Divalproex Sodium (Depakote Sprinkles) 250 mg BID@0900,1700 PO 03/20/21 18:00 03/24/21 17:47 DC 03/24/21 17:20 Divalproex Sodium (Depakote Sprinkles) 375 mg BID@0900,1700 PO 03/24/21 18:00 03/25/21 17:35 I have reviewed the current psychotropics carefully including drug interactions. Risk benefit ratio favors no change other than as noted in my dictated progress note. Diagnosis: Problems: (1) Impulse control disorder, unspecified (2) Anxiety disorder, unspecified (3) Dementia, vascular, with depression (4) Dementia, vascular, with delusions (5) Dementia in Alzheimer's disease with depression (6) Dementia in Alzheimer's disease with delusions (7) Dementia of the Alzheimer's type with early onset with behavioral disturbance (8) Major neurocognitive disorder RONALD MENJIVAR MD Mar 26, 2021 07:08
[2021-03-26] MEDS: FINASTERIDE 5 MG TABLET. PO SCH (08:58)
[2021-03-26] MEDS: PANTOPRAZOLE 40 MG TABLET. PO SCH (08:58)
[2021-03-26] MEDS: ALLOPURINOL 100 MG TABLET. PO SCH ×2 (08:58→20:30)
[2021-03-26] MEDS: FUROSEMIDE 40 MG TABLET PO SCH (08:59)
[2021-03-26] MEDS: METOPROLOL TART IMMED RELEASE 25 MG TABLET. PO SCH ×2 (08:59→20:29)
[2021-03-26] MEDS: TAMSULOSIN 0.4 MG CAP.ER.24H. PO SCH (08:59)
[2021-03-26] MEDS: DIVALPROEX 125 MG CAP.SPRINK PO SCH ×2 (09:00→16:12)
[2021-03-26] MEDS: SERTRALINE 50 MG TABLET. PO SCH (09:00)
[2021-03-26] MEDS: QUEtiapine 50 MG TABLET. PO PRN (16:12)
[2021-03-26] MEDS: RIVAROXABAN 10 MG TABLET. PO SCH (16:12)
--- NOTE | 2021-03-26 18:35 | NUR ---
Patient has been increasingly intrusive with other patients and resistive to redirection. Patient was kept out of the dining room during meals and fed separately to prevent him from being intrusive with other patients and taking items from their trays. In the afternoon, he was removed from the day room for attempting to take gatorades from other patients and pouring a gatorade on two other patients. PRN medications provided per eMAR. Patient continues to be restless, agitated, and compulsive; MD informed during rounds. Will continue to monitor and report to oncoming shift.
[2021-03-26] MEDS: traZODone 150 MG TABLET. PO SCH (20:29)
[2021-03-26] MEDS: QUEtiapine 100 MG TABLET. PO SCH (20:29)
[2021-03-26] MEDS: MELATONIN 3 MG TABLET PO SCH (20:29)
--- NOTE | 2021-03-26 21:54 | PDOC ---
Exam Note: Kevin Note: Please also refer to the separate dictated note~for this date of service dictated separately.~Patient seen individually. Discussed the patient with Nursing staff reviewed the chart.~Reviewed interim history and current functioning. Reviewed vital signs,~Labs/ Radiology~and current medications noted below. Continue current treatment with the changes noted in the dictated addendum note Assessment: Vital Signs/I&O: Vital Signs Date Time Temp Pulse Resp B/P (MAP) Pulse Ox O2 Delivery O2 Flow Rate FiO2 03/26/21 20:29 57 136/88 03/26/21 05:50 97.1 18 98 Room Air I & O 03/25/21 03/25/21 03/26/21 15:00 23:00 07:00 Intake Total 720 ml 480 ml Balance 720 ml 480 ml Current Medications: Meds: Current Medications Medications (Trade) Dose Ordered Sig/Crista Route PRN Reason Start Time Stop Time Status Last Admin Dose Admin Acetaminophen (Tylenol) 650 mg PRN Q6HRS PRN PO MILD PAIN / TEMP > 100.3'F 03/13/21 21:30 Multi-Ingredient Ointment (Analgesic [place]) 1 mikala PRN QID PRN TP MUSCLE PAIN 03/13/21 21:30 Al Hydroxide/Mg Hydroxide (Mylanta Plus Xs) 15 ml PRN AFTMEALHC PRN PO DYSPEPSIA 03/13/21 21:30 Magnesium Hydroxide (Milk Of Magnesia) 2,400 mg PRN QHS PRN PO CONSTIPATION 03/13/21 21:30 Buspirone HCl (Buspar) 10 mg TID PO 03/13/21 22:15 03/17/21 14:18 DC 03/17/21 13:55 Quetiapine Fumarate (SEROquel) 50 mg PRN DAILY PRN PO prior to lab draws 03/13/21 21:45 03/26/21 16:12 Quetiapine Fumarate (SEROquel) 50 mg PRN Q6HRS PRN PO AGITATION 03/13/21 21:45 Quetiapine Fumarate (SEROquel) 100 mg HS PO 03/13/21 22:15 03/26/21 20:29 Trazodone HCl (Desyrel) 150 mg HS PO 03/13/21 22:15 03/26/21 20:29 Melatonin (Melatonin) 6 mg HS PO 03/13/21 22:15 03/26/21 20:29 Allopurinol (Zyloprim) 100 mg BID PO 03/14/21 12:15 03/26/21 20:30 Finasteride (Proscar) 5 mg DAILY PO 03/14/21 12:15 03/26/21 08:58 Furosemide (Lasix) 40 mg DAILY PO 03/14/21 12:15 03/26/21 08:59 Metoprolol Tartrate (Lopressor) 25 mg BID PO 03/14/21 12:15 03/26/21 20:29 Tamsulosin HCl (Flomax) 0.4 mg DAILY PO 03/14/21 12:15 03/26/21 08:59 Pantoprazole Sodium (Protonix) 40 mg DAILYAC PO 03/15/21 07:30 03/26/21 08:58 Polyethylene Glycol (miraLAX) 17 gm DAILY PO 03/14/21 12:00 03/25/21 11:44 DC 03/25/21 10:15 Non-Formulary Medication (Potassium Chloride (Klor-Con 10)) 30 meq DAILY PO 03/15/21 09:00 03/15/21 10:26 DC Rivaroxaban (Xarelto) 20 mg DAILYBFRSUP PO 03/14/21 17:00 03/14/21 17:30 DC Rivaroxaban (Xarelto) 20 mg DAILYBFRSUP PO 03/14/21 17:30 03/26/21 16:12 Olanzapine (ZyPREXA ZYDIS) 2.5 mg PRN Q2HR PRN PO PSYCHOSIS 03/14/21 18:45 03/26/21 16:12 Divalproex Sodium (Depakote Sprinkles) 125 mg BID@0900,1700 PO 03/15/21 21:00 03/20/21 17:56 DC 03/20/21 08:36 Sertraline HCl (Zoloft) 50 mg DAILY PO 03/16/21 09:00 03/26/21 09:00 Divalproex Sodium (Depakote Sprinkles) 250 mg BID@0900,1700 PO 03/20/21 18:00 03/24/21 17:47 DC 03/24/21 17:20 Divalproex Sodium (Depakote Sprinkles) 375 mg BID@0900,1700 PO 03/24/21 18:00 03/26/21 16:12 Quetiapine Fumarate (SEROquel) 25 mg 0900,1700 PO 03/27/21 09:00 I have reviewed the current psychotropics carefully including drug interactions. Risk benefit ratio favors no change other than as noted in my dictated progress note. Diagnosis: Problems: (1) Impulse control disorder, unspecified (2) Anxiety disorder, unspecified (3) Dementia, vascular, with depression (4) Dementia, vascular, with delusions (5) Dementia in Alzheimer's disease with depression (6) Dementia in Alzheimer's disease with delusions (7) Dementia of the Alzheimer's type with early onset with behavioral disturbance (8) Major neurocognitive disorder RONALD MENJIVAR MD Mar 26, 2021 21:54
--- NOTE | 2021-03-27 01:57 | NUR ---
Last evening pt wandered the unit and was intrusive at times. He tries to take food and drink from peers and is sometimes difficult to redirect. He was somewhat cooperative with HS cares and has been sleeping.
[2021-03-27 05:50] VITALS: BP 143/78
--- NOTE | 2021-03-27 07:04 | PDOC ---
Exam Note: Kevin Note: This note is a late entry for 03/26/2021 covers elements not covered in my initial note. Subjective: The patient was seen individually in the evening of 03/26/2021 with Mark BIRMINGHAM, discussed and reviewed the chart. The patient slept 6-1/2 hours previous night. He has had a difficult day today, did not go to the dining room for meals and he served the meals after the others had their meals and this was done in the dayroom, which reduced stimuli and it is better for him. Review of Systems: No CV, , pulmonary, eye, ENT system symptoms on review. Reliability poor. Mental Status Exam: The patient is oriented to himself. Insight and judgment, recent and remote memory, attention and concentration, fund of knowledge is poor consistent with his diagnoses. Laboratory Data: Reviewed. Impression: Major neurocognitive disorder Alzheimer vascular with delusion, depression, behavioral disturbance. Anxiety disorder unspecified. Impulse con trol disorder unspecified. Plan: No change from initial note. We will continue Seroquel 100 mg h.s. Start 25 mg 9 a.m. and 3 p.m. Maintain rest psychotropics unchanged for now. Assessment: Vital Signs/I&O: Vital Signs Date Time Temp Pulse Resp B/P (MAP) Pulse Ox O2 Delivery O2 Flow Rate FiO2 03/27/21 05:50 97.6 71 18 143/78 (99) 95 Room Air I & O 03/26/21 03/26/21 03/27/21 15:00 23:00 07:00 Intake Total 1200 ml 0 ml 240 ml Output Total 1 ml Balance 1200 ml 0 ml 239 ml Current Medications: Meds: Current Medications Medications (Trade) Dose Ordered Sig/Crista Route PRN Reason Start Time Stop Time Status Last Admin Dose Admin Acetaminophen (Tylenol) 650 mg PRN Q6HRS PRN PO MILD PAIN / TEMP > 100.3'F 03/13/21 21:30 Multi-Ingredient Ointment (Analgesic [place]) 1 mikala PRN QID PRN TP MUSCLE PAIN 03/13/21 21:30 Al Hydroxide/Mg Hydroxide (Mylanta Plus Xs) 15 ml PRN AFTMEALHC PRN PO DYSPEPSIA 03/13/21 21:30 Magnesium Hydroxide (Milk Of Magnesia) 2,400 mg PRN QHS PRN PO CONSTIPATION 03/13/21 21:30 Buspirone HCl (Buspar) 10 mg TID PO 03/13/21 22:15 03/17/21 14:18 DC 03/17/21 13:55 Quetiapine Fumarate (SEROquel) 50 mg PRN DAILY PRN PO prior to lab draws 03/13/21 21:45 03/26/21 16:12 Quetiapine Fumarate (SEROquel) 50 mg PRN Q6HRS PRN PO AGITATION 03/13/21 21:45 Quetiapine Fumarate (SEROquel) 100 mg HS PO 03/13/21 22:15 03/26/21 20:29 Trazodone HCl (Desyrel) 150 mg HS PO 03/13/21 22:15 03/26/21 20:29 Melatonin (Melatonin) 6 mg HS PO 03/13/21 22:15 03/26/21 20:29 Allopurinol (Zyloprim) 100 mg BID PO 03/14/21 12:15 03/26/21 20:30 Finasteride (Proscar) 5 mg DAILY PO 03/14/21 12:15 03/26/21 08:58 Furosemide (Lasix) 40 mg DAILY PO 03/14/21 12:15 03/26/21 08:59 Metoprolol Tartrate (Lopressor) 25 mg BID PO 03/14/21 12:15 03/26/21 20:29 Tamsulosin HCl (Flomax) 0.4 mg DAILY PO 03/14/21 12:15 03/26/21 08:59 Pantoprazole Sodium (Protonix) 40 mg DAILYAC PO 03/15/21 07:30 03/26/21 08:58 Polyethylene Glycol (miraLAX) 17 gm DAILY PO 03/14/21 12:00 03/25/21 11:44 DC 03/25/21 10:15 Non-Formulary Medication (Potassium Chloride (Klor-Con 10)) 30 meq DAILY PO 03/15/21 09:00 03/15/21 10:26 DC Rivaroxaban (Xarelto) 20 mg DAILYBFRSUP PO 03/14/21 17:00 03/14/21 17:30 DC Rivaroxaban (Xarelto) 20 mg DAILYBFRSUP PO 03/14/21 17:30 03/26/21 16:12 Olanzapine (ZyPREXA ZYDIS) 2.5 mg PRN Q2HR PRN PO PSYCHOSIS 03/14/21 18:45 03/26/21 16:12 Divalproex Sodium (Depakote Sprinkles) 125 mg BID@0900,1700 PO 03/15/21 21:00 03/20/21 17:56 DC 03/20/21 08:36 Sertraline HCl (Zoloft) 50 mg DAILY PO 03/16/21 09:00 03/26/21 09:00 Divalproex Sodium (Depakote Sprinkles) 250 mg BID@0900,1700 PO 03/20/21 18:00 03/24/21 17:47 DC 03/24/21 17:20 Divalproex Sodium (Depakote Sprinkles) 375 mg BID@0900,1700 PO 03/24/21 18:00 03/26/21 16:12 Quetiapine Fumarate (SEROquel) 25 mg 0900,1700 PO 03/27/21 09:00 I have reviewed the current psychotropics carefully including drug interactions. Risk benefit ratio favors no change other than as noted in my dictated progress note. Diagnosis: Problems: (1) Impulse control disorder, unspecified (2) Anxiety disorder, unspecified (3) Dementia, vascular, with depression (4) Dementia, vascular, with delusions (5) Dementia in Alzheimer's disease with depression (6) Dementia in Alzheimer's disease with delusions (7) Dementia of the Alzheimer's type with early onset with behavioral disturbance (8) Major neurocognitive disorder RONALD MENJIVAR MD Mar 27, 2021 07:04
[2021-03-27] MEDS: ALLOPURINOL 100 MG TABLET. PO SCH ×2 (08:44→19:53)
[2021-03-27] MEDS: DIVALPROEX 125 MG CAP.SPRINK PO SCH ×2 (08:44→17:03)
[2021-03-27] MEDS: FINASTERIDE 5 MG TABLET. PO SCH (08:44)
[2021-03-27] MEDS: TAMSULOSIN 0.4 MG CAP.ER.24H. PO SCH (08:44)
[2021-03-27] MEDS: PANTOPRAZOLE 40 MG TABLET. PO SCH (08:44)
[2021-03-27] MEDS: METOPROLOL TART IMMED RELEASE 25 MG TABLET. PO SCH ×2 (08:44→19:54)
[2021-03-27] MEDS: SERTRALINE 50 MG TABLET. PO SCH (08:45)
[2021-03-27] MEDS: FUROSEMIDE 40 MG TABLET PO SCH (08:45)
[2021-03-27] MEDS: QUEtiapine 25 MG TABLET. PO SCH ×2 (08:45→17:03)
[2021-03-27 15:28] VITALS: BP 96/63
[2021-03-27] MEDS: RIVAROXABAN 10 MG TABLET. PO SCH (17:03)
--- NOTE | 2021-03-27 17:47 | NUR ---
NSG NOTE; SHIFT SUMMARY trista has been alert and awake. he is med compliant with his meds crushed in juice. he walks around alot but is sitting still for longer periods in the dayroom and dining rooms. he continues to be intrusive in the dining room, walking up to other's trays and taking what he wants. he is resistant to cares and redirection but has not been combative today
[2021-03-27] MEDS: MELATONIN 3 MG TABLET PO SCH (19:54)
[2021-03-27] MEDS: QUEtiapine 100 MG TABLET. PO SCH (19:54)
[2021-03-27] MEDS: traZODone 150 MG TABLET. PO SCH (19:54)
--- NOTE | 2021-03-27 22:01 | PDOC ---
Exam Note: Kevin Note: Please also refer to the separate dictated note~for this date of service dictated separately.~Patient seen individually. Discussed the patient with Nursing staff reviewed the chart.~Reviewed interim history and current functioning. Reviewed vital signs,~Labs/ Radiology~and current medications noted below. Continue current treatment with the changes noted in the dictated addendum note Assessment: Vital Signs/I&O: Vital Signs Date Time Temp Pulse Resp B/P (MAP) Pulse Ox O2 Delivery O2 Flow Rate FiO2 03/27/21 19:54 86 94/57 03/27/21 15:28 97.2 20 98 Room Air I & O 03/26/21 03/26/21 03/27/21 15:00 23:00 07:00 Intake Total 1200 ml 0 ml 240 ml Output Total 1 ml Balance 1200 ml 0 ml 239 ml Current Medications: Meds: Current Medications Medications (Trade) Dose Ordered Sig/Crista Route PRN Reason Start Time Stop Time Status Last Admin Dose Admin Acetaminophen (Tylenol) 650 mg PRN Q6HRS PRN PO MILD PAIN / TEMP > 100.3'F 03/13/21 21:30 Multi-Ingredient Ointment (Analgesic [place]) 1 mikala PRN QID PRN TP MUSCLE PAIN 03/13/21 21:30 Al Hydroxide/Mg Hydroxide (Mylanta Plus Xs) 15 ml PRN AFTMEALHC PRN PO DYSPEPSIA 03/13/21 21:30 Magnesium Hydroxide (Milk Of Magnesia) 2,400 mg PRN QHS PRN PO CONSTIPATION 03/13/21 21:30 Buspirone HCl (Buspar) 10 mg TID PO 03/13/21 22:15 03/17/21 14:18 DC 03/17/21 13:55 Quetiapine Fumarate (SEROquel) 50 mg PRN DAILY PRN PO prior to lab draws 03/13/21 21:45 03/26/21 16:12 Quetiapine Fumarate (SEROquel) 50 mg PRN Q6HRS PRN PO AGITATION 03/13/21 21:45 Quetiapine Fumarate (SEROquel) 100 mg HS PO 03/13/21 22:15 03/27/21 19:54 Trazodone HCl (Desyrel) 150 mg HS PO 03/13/21 22:15 03/27/21 19:54 Melatonin (Melatonin) 6 mg HS PO 03/13/21 22:15 03/27/21 19:54 Allopurinol (Zyloprim) 100 mg BID PO 03/14/21 12:15 03/27/21 19:53 Finasteride (Proscar) 5 mg DAILY PO 03/14/21 12:15 03/27/21 08:44 Furosemide (Lasix) 40 mg DAILY PO 03/14/21 12:15 03/27/21 08:45 Metoprolol Tartrate (Lopressor) 25 mg BID PO 03/14/21 12:15 03/27/21 08:44 Tamsulosin HCl (Flomax) 0.4 mg DAILY PO 03/14/21 12:15 03/27/21 08:44 Pantoprazole Sodium (Protonix) 40 mg DAILYAC PO 03/15/21 07:30 03/27/21 08:44 Polyethylene Glycol (miraLAX) 17 gm DAILY PO 03/14/21 12:00 03/25/21 11:44 DC 03/25/21 10:15 Non-Formulary Medication (Potassium Chloride (Klor-Con 10)) 30 meq DAILY PO 03/15/21 09:00 03/15/21 10:26 DC Rivaroxaban (Xarelto) 20 mg DAILYBFRSUP PO 03/14/21 17:00 03/14/21 17:30 DC Rivaroxaban (Xarelto) 20 mg DAILYBFRSUP PO 03/14/21 17:30 03/27/21 17:03 Olanzapine (ZyPREXA ZYDIS) 2.5 mg PRN Q2HR PRN PO PSYCHOSIS 03/14/21 18:45 03/26/21 16:12 Divalproex Sodium (Depakote Sprinkles) 125 mg BID@0900,1700 PO 03/15/21 21:00 03/20/21 17:56 DC 03/20/21 08:36 Sertraline HCl (Zoloft) 50 mg DAILY PO 03/16/21 09:00 03/27/21 08:45 Divalproex Sodium (Depakote Sprinkles) 250 mg BID@0900,1700 PO 03/20/21 18:00 03/24/21 17:47 DC 03/24/21 17:20 Divalproex Sodium (Depakote Sprinkles) 375 mg BID@0900,1700 PO 03/24/21 18:00 03/27/21 17:03 Quetiapine Fumarate (SEROquel) 25 mg 0900,1700 PO 03/27/21 09:00 03/27/21 17:03 Current Medications Medications (Trade) Dose Ordered Sig/Crista Route PRN Reason Start Time Stop Time Status Last Admin Dose Admin Quetiapine Fumarate (SEROquel) 25 mg 0900,1700 PO 03/27/21 09:00 03/27/21 17:03 I have reviewed the current psychotropics carefully including drug interactions. Risk benefit ratio favors no change other than as noted in my dictated progress note. Diagnosis: Problems: (1) Impulse control disorder, unspecified (2) Anxiety disorder, unspecified (3) Dementia, vascular, with depression (4) Dementia, vascular, with delusions (5) Dementia in Alzheimer's disease with depression (6) Dementia in Alzheimer's disease with delusions (7) Dementia of the Alzheimer's type with early onset with behavioral disturbance (8) Major neurocognitive disorder RONALD MENJIVAR MD Mar 27, 2021 22:01
--- NOTE | 2021-03-27 22:56 | NUR ---
Patient is located in the day room on assumption of care. He is restless, disorganized, confused. Speaks in word salad. Compliant with HS medications in crushed and mixed with thickened cranberry juice. Resistive with ADL's but not combative. No further agitation. Does not appear to be in any pain or discomfort. Patient appears to be sleeping comfortably at present time. Will continue to monitor.
[2021-03-28 06:06] VITALS: BP 142/74
--- NOTE | 2021-03-28 07:00 | PDOC ---
Exam Note: Kevin Note: This note is a late entry for 03/27/2021 covers elements not covered in my initial note. Subjective: The patient was seen individually in the evening of 03/27/2021 with Miroslava BIRMINGHAM, discussed and reviewed the chart. The patient slept 7 hours previous night. He is less anxious, restless, able to sit longer, still intrusive, picking up things from other patients plates in the dining room. He takes his medications in juice. Valproic acid level will be repeated 03/28. Depakote adjusted thereafter. Review of Systems: No CV, , pulmonary, eye, ENT system symptoms on review. Reliability poor. Mental Status Exam: The patient is oriented to himself. Insight and judgment, recent and remote memory, attention and concentration, fund of knowledge is poor consistent with his diagnoses. Laboratory Data: Reviewed. Impression: Major neurocognitive disorder Alzheimer vascular with delusion, depression, behavioral disturbance. Anxiety disorder unspecified. Impulse control disorder unspecified. Plan: No change from initial note. Assessment: Vital Signs/I&O: Vital Signs Date Time Temp Pulse Resp B/P (MAP) Pulse Ox O2 Delivery O2 Flow Rate FiO2 03/28/21 06:06 97.0 59 18 142/74 (96) 95 Room Air I & O 03/27/21 03/27/21 03/28/21 15:00 23:00 07:00 Intake Total 240 ml 1040 ml Balance 240 ml 1040 ml Current Medications: Meds: Current Medications Medications (Trade) Dose Ordered Sig/Crista Route PRN Reason Start Time Stop Time Status Last Admin Dose Admin Acetaminophen (Tylenol) 650 mg PRN Q6HRS PRN PO MILD PAIN / TEMP > 100.3'F 03/13/21 21:30 Multi-Ingredient Ointment (Analgesic [place]) 1 mikala PRN QID PRN TP MUSCLE PAIN 03/13/21 21:30 Al Hydroxide/Mg Hydroxide (Mylanta Plus Xs) 15 ml PRN AFTMEALHC PRN PO DYSPEPSIA 03/13/21 21:30 Magnesium Hydroxide (Milk Of Magnesia) 2,400 mg PRN QHS PRN PO CONSTIPATION 03/13/21 21:30 Buspirone HCl (Buspar) 10 mg TID PO 03/13/21 22:15 03/17/21 14:18 DC 03/17/21 13:55 Quetiapine Fumarate (SEROquel) 50 mg PRN DAILY PRN PO prior to lab draws 03/13/21 21:45 03/26/21 16:12 Quetiapine Fumarate (SEROquel) 50 mg PRN Q6HRS PRN PO AGITATION 03/13/21 21:45 Quetiapine Fumarate (SEROquel) 100 mg HS PO 03/13/21 22:15 03/27/21 19:54 Trazodone HCl (Desyrel) 150 mg HS PO 03/13/21 22:15 03/27/21 19:54 Melatonin (Melatonin) 6 mg HS PO 03/13/21 22:15 03/27/21 19:54 Allopurinol (Zyloprim) 100 mg BID PO 03/14/21 12:15 03/27/21 19:53 Finasteride (Proscar) 5 mg DAILY PO 03/14/21 12:15 03/27/21 08:44 Furosemide (Lasix) 40 mg DAILY PO 03/14/21 12:15 03/27/21 08:45 Metoprolol Tartrate (Lopressor) 25 mg BID PO 03/14/21 12:15 03/27/21 08:44 Tamsulosin HCl (Flomax) 0.4 mg DAILY PO 03/14/21 12:15 03/27/21 08:44 Pantoprazole Sodium (Protonix) 40 mg DAILYAC PO 03/15/21 07:30 03/27/21 08:44 Polyethylene Glycol (miraLAX) 17 gm DAILY PO 03/14/21 12:00 03/25/21 11:44 DC 03/25/21 10:15 Non-Formulary Medication (Potassium Chloride (Klor-Con 10)) 30 meq DAILY PO 03/15/21 09:00 03/15/21 10:26 DC Rivaroxaban (Xarelto) 20 mg DAILYBFRSUP PO 03/14/21 17:00 03/14/21 17:30 DC Rivaroxaban (Xarelto) 20 mg DAILYBFRSUP PO 03/14/21 17:30 03/27/21 17:03 Olanzapine (ZyPREXA ZYDIS) 2.5 mg PRN Q2HR PRN PO PSYCHOSIS 03/14/21 18:45 03/26/21 16:12 Divalproex Sodium (Depakote Sprinkles) 125 mg BID@0900,1700 PO 03/15/21 21:00 03/20/21 17:56 DC 03/20/21 08:36 Sertraline HCl (Zoloft) 50 mg DAILY PO 03/16/21 09:00 03/27/21 08:45 Divalproex Sodium (Depakote Sprinkles) 250 mg BID@0900,1700 PO 03/20/21 18:00 03/24/21 17:47 DC 03/24/21 17:20 Divalproex Sodium (Depakote Sprinkles) 375 mg BID@0900,1700 PO 03/24/21 18:00 03/27/21 17:03 Quetiapine Fumarate (SEROquel) 25 mg 0900,1700 PO 03/27/21 09:00 03/27/21 17:03 Current Medications Medications (Trade) Dose Ordered Sig/Crista Route PRN Reason Start Time Stop Time Status Last Admin Dose Admin Quetiapine Fumarate (SEROquel) 25 mg 0900,1700 PO 03/27/21 09:00 03/27/21 17:03 I have reviewed the current psychotropics carefully including drug interactions. Risk benefit ratio favors no change other than as noted in my dictated progress note. Diagnosis: Problems: (1) Impulse control disorder, unspecified (2) Anxiety disorder, unspecified (3) Dementia, vascular, with depression (4) Dementia, vascular, with delusions (5) Dementia in Alzheimer's disease with depression (6) Dementia in Alzheimer's disease with delusions (7) Dementia of the Alzheimer's type with early onset with behavioral disturbance (8) Major neurocognitive disorder RONALD MENJIVAR MD Mar 28, 2021 07:00
[2021-03-28] MEDS: METOPROLOL TART IMMED RELEASE 25 MG TABLET. PO SCH ×2 (09:00→20:03)
[2021-03-28] MEDS: TAMSULOSIN 0.4 MG CAP.ER.24H. PO SCH (09:18)
[2021-03-28] MEDS: QUEtiapine 25 MG TABLET. PO SCH ×2 (09:18→17:30)
[2021-03-28] MEDS: FINASTERIDE 5 MG TABLET. PO SCH (09:18)
[2021-03-28] MEDS: FUROSEMIDE 40 MG TABLET PO SCH (09:18)
[2021-03-28] MEDS: ALLOPURINOL 100 MG TABLET. PO SCH ×2 (09:18→20:03)
[2021-03-28] MEDS: SERTRALINE 50 MG TABLET. PO SCH (09:19)
[2021-03-28] MEDS: DIVALPROEX 125 MG CAP.SPRINK PO SCH ×2 (09:19→17:30)
[2021-03-28] MEDS: PANTOPRAZOLE 40 MG TABLET. PO SCH (09:19)
[2021-03-28 11:25] LABS: BASO # 0.1 x10^3/uL (0.0-0.2); BASO % 1 % (0-3); EOS # 0.2 x10^3/uL (0.0-0.7); EOS % 2 % (0-3); HEMATOCRIT 39.8 % (39.0-53.0); HEMOGLOBIN 13.4 g/dL (13.0-17.5); LYMPH # 1.3 x10^3/uL (1.0-4.8); LYMPH % 14 % (24-48); MEAN CORPUSCULAR HEMOGLOBIN 30 pg (25-35); MEAN CORPUSCULAR HGB CONC 34 g/dL (31-37); MEAN CORPUSCULAR VOLUME 89 fL (79-100); MONO # 0.7 x10^3/uL (0.0-1.1); MONO % 7 % (0-9); NEUT # 7.1 x10^3uL (1.8-7.7); NEUT % 76 % (31-73); PLATELET COUNT 168 x10^3/uL (140-400); RED BLOOD COUNT 4.46 x10^6/uL (4.30-5.70); RED CELL DISTRIBUTION WIDTH 16.6 % (11.5-14.5); WHITE BLOOD COUNT 9.2 x10^3/uL (4.0-11.0)
[2021-03-28 11:37] LABS: ALBUMIN/GLOBULIN RATIO 0.8 (1.0-1.7); CALCIUM 8.8 mg/dL (8.5-10.1); CREATININE 0.8 mg/dL (0.7-1.3); GFR 93.3; POTASSIUM 4.2 mmol/L (3.5-5.1); TOTAL BILIRUBIN 0.9 mg/dL (0.2-1.0); TOTAL PROTEIN 6.6 g/dL (6.4-8.2)
[2021-03-28 11:41] LABS: VAL ACID 40 mcg/mL (50-100)
--- NOTE | 2021-03-28 14:57 | NUR ---
Nursing note: Client was in bed room for am meds crushed in juice. He frequently walks around is sitting still for short periods in the day room and dining rooms. He is highly restless, disorganized, & confused. Speaks in word salad. Client continues to be highly intrusive in the dining room, walking up to other's trays and taking what he wants. He is resistant to cares and redirection but has not been combative today
[2021-03-28] MEDS: RIVAROXABAN 10 MG TABLET. PO SCH (17:30)
[2021-03-28] MEDS: traZODone 150 MG TABLET. PO SCH (20:03)
[2021-03-28] MEDS: QUEtiapine 100 MG TABLET. PO SCH (20:03)
[2021-03-28] MEDS: MELATONIN 3 MG TABLET PO SCH (20:03)
--- NOTE | 2021-03-28 21:20 | NUR ---
Patient is located in the day room on assumption of care. He is restless, disorganized, confused. Speaks in word salad. Compliant with HS medications in crushed and mixed with thickened cranberry juice. More intrusive than usual, touching other patients and staff. PRN Zydis given with HS meds. Resistive with ADL's but not combative. No further agitation. Does not appear to be in any pain or discomfort. Patient appears to be sleeping comfortably at present time. Will continue to monitor.
--- NOTE | 2021-03-28 22:00 | PDOC ---
Exam Note: Kevin Note: Please also refer to the separate dictated note~for this date of service dictated separately.~Patient seen individually. Discussed the patient with Nursing staff reviewed the chart.~Reviewed interim history and current functioning. Reviewed vital signs,~Labs/ Radiology~and current medications noted below. Continue current treatment with the changes noted in the dictated addendum note Assessment: Vital Signs/I&O: Vital Signs Date Time Temp Pulse Resp B/P (MAP) Pulse Ox O2 Delivery O2 Flow Rate FiO2 03/28/21 20:03 88 102/59 03/28/21 15:20 97.2 20 99 Room Air I & O 03/27/21 03/27/21 03/28/21 15:00 23:00 07:00 Intake Total 240 ml 1040 ml Balance 240 ml 1040 ml Labs: Laboratory Tests Test 03/28/21 10:45 White Blood Count 9.2 x10^3/uL (4.0-11.0) Red Blood Count 4.46 x10^6/uL (4.30-5.70) Hemoglobin 13.4 g/dL (13.0-17.5) Hematocrit 39.8 % (39.0-53.0) Mean Corpuscular Volume 89 fL (79-100) Mean Corpuscular Hemoglobin 30 pg (25-35) Mean Corpuscular Hemoglobin Concent 34 g/dL (31-37) Red Cell Distribution Width 16.6 % (11.5-14.5) H Platelet Count 168 x10^3/uL (140-400) Neutrophils (%) (Auto) 76 % (31-73) H Lymphocytes (%) (Auto) 14 % (24-48) L Monocytes (%) (Auto) 7 % (0-9) Eosinophils (%) (Auto) 2 % (0-3) Basophils (%) (Auto) 1 % (0-3) Neutrophils # (Auto) 7.1 x10^3uL (1.8-7.7) Lymphocytes # (Auto) 1.3 x10^3/uL (1.0-4.8) Monocytes # (Auto) 0.7 x10^3/uL (0.0-1.1) Eosinophils # (Auto) 0.2 x10^3/uL (0.0-0.7) Basophils # (Auto) 0.1 x10^3/uL (0.0-0.2) Sodium Level 144 mmol/L (136-145) Potassium Level 4.2 mmol/L (3.5-5.1) Chloride Level 110 mmol/L (98-107) H Carbon Dioxide Level 29 mmol/L (21-32) Anion Gap 5 (6-14) L Blood Urea Nitrogen 11 mg/dL (8-26) Creatinine 0.8 mg/dL (0.7-1.3) Estimated GFR (Cockcroft-Gault) 93.3 BUN/Creatinine Ratio 14 (6-20) Glucose Level 95 mg/dL (70-99) Calcium Level 8.8 mg/dL (8.5-10.1) Total Bilirubin 0.9 mg/dL (0.2-1.0) Aspartate Amino Transferase (AST) 17 U/L (15-37) Alanine Aminotransferase (ALT) 19 U/L (16-63) Alkaline Phosphatase 30 U/L (46-116) L Total Protein 6.6 g/dL (6.4-8.2) Albumin 3.0 g/dL (3.4-5.0) L Albumin/Globulin Ratio 0.8 (1.0-1.7) L Valproic Acid Level 40 mcg/mL (50-100) L Valproic Acid Last Dose Date 03/27/2021 Valproic Acid Last Dose Time 1700 Current Medications: Meds: Laboratory Tests Test 03/28/21 10:45 White Blood Count 9.2 x10^3/uL Red Blood Count 4.46 x10^6/uL Hemoglobin 13.4 g/dL Hematocrit 39.8 % Mean Corpuscular Volume 89 fL Mean Corpuscular Hemoglobin 30 pg Mean Corpuscular Hemoglobin Concent 34 g/dL Red Cell Distribution Width 16.6 % Platelet Count 168 x10^3/uL Neutrophils (%) (Auto) 76 % Lymphocytes (%) (Auto) 14 % Monocytes (%) (Auto) 7 % Eosinophils (%) (Auto) 2 % Basophils (%) (Auto) 1 % Neutrophils # (Auto) 7.1 x10^3uL Lymphocytes # (Auto) 1.3 x10^3/uL Monocytes # (Auto) 0.7 x10^3/uL Eosinophils # (Auto) 0.2 x10^3/uL Basophils # (Auto) 0.1 x10^3/uL Sodium Level 144 mmol/L Potassium Level 4.2 mmol/L Chloride Level 110 mmol/L Carbon Dioxide Level 29 mmol/L Anion Gap 5 Blood Urea Nitrogen 11 mg/dL Creatinine 0.8 mg/dL Estimated GFR (Cockcroft-Gault) 93.3 BUN/Creatinine Ratio 14 Glucose Level 95 mg/dL Calcium Level 8.8 mg/dL Total Bilirubin 0.9 mg/dL Aspartate Amino Transf (AST/SGOT) 17 U/L Alanine Aminotransferase (ALT/SGPT) 19 U/L Alkaline Phosphatase 30 U/L Total Protein 6.6 g/dL Albumin 3.0 g/dL Albumin/Globulin Ratio 0.8 Valproic Acid (Depakene) Level 40 mcg/mL Valproic Acid Last Dose Date 03/27/2021 Valproic Acid Last Dose Time 1700 Current Medications Medications (Trade) Dose Ordered Sig/Crista Route PRN Reason Start Time Stop Time Status Last Admin Dose Admin Acetaminophen (Tylenol) 650 mg PRN Q6HRS PRN PO MILD PAIN / TEMP > 100.3'F 03/13/21 21:30 Multi-Ingredient Ointment (Analgesic [place]) 1 mikala PRN QID PRN TP MUSCLE PAIN 03/13/21 21:30 Al Hydroxide/Mg Hydroxide (Mylanta Plus Xs) 15 ml PRN AFTMEALHC PRN PO DYSPEPSIA 03/13/21 21:30 Magnesium Hydroxide (Milk Of Magnesia) 2,400 mg PRN QHS PRN PO CONSTIPATION 03/13/21 21:30 Buspirone HCl (Buspar) 10 mg TID PO 03/13/21 22:15 03/17/21 14:18 DC 03/17/21 13:55 Quetiapine Fumarate (SEROquel) 50 mg PRN DAILY PRN PO prior to lab draws 03/13/21 21:45 03/26/21 16:12 Quetiapine Fumarate (SEROquel) 50 mg PRN Q6HRS PRN PO AGITATION 03/13/21 21:45 Quetiapine Fumarate (SEROquel) 100 mg HS PO 03/13/21 22:15 03/28/21 20:03 Trazodone HCl (Desyrel) 150 mg HS PO 03/13/21 22:15 03/28/21 20:03 Melatonin (Melatonin) 6 mg HS PO 03/13/21 22:15 03/28/21 20:03 Allopurinol (Zyloprim) 100 mg BID PO 03/14/21 12:15 03/28/21 20:03 Finasteride (Proscar) 5 mg DAILY PO 03/14/21 12:15 03/28/21 09:18 Furosemide (Lasix) 40 mg DAILY PO 03/14/21 12:15 03/28/21 09:18 Metoprolol Tartrate (Lopressor) 25 mg BID PO 03/14/21 12:15 03/28/21 20:03 Tamsulosin HCl (Flomax) 0.4 mg DAILY PO 03/14/21 12:15 03/28/21 09:18 Pantoprazole Sodium (Protonix) 40 mg DAILYAC PO 03/15/21 07:30 03/28/21 09:19 Polyethylene Glycol (miraLAX) 17 gm DAILY PO 03/14/21 12:00 03/25/21 11:44 DC 03/25/21 10:15 Non-Formulary Medication (Potassium Chloride (Klor-Con 10)) 30 meq DAILY PO 03/15/21 09:00 03/15/21 10:26 DC Rivaroxaban (Xarelto) 20 mg DAILYBFRSUP PO 03/14/21 17:00 03/14/21 17:30 DC Rivaroxaban (Xarelto) 20 mg DAILYBFRSUP PO 03/14/21 17:30 03/28/21 17:30 Olanzapine (ZyPREXA ZYDIS) 2.5 mg PRN Q2HR PRN PO PSYCHOSIS 03/14/21 18:45 03/28/21 20:03 Divalproex Sodium (Depakote Sprinkles) 125 mg BID@0900,1700 PO 03/15/21 21:00 03/20/21 17:56 DC 03/20/21 08:36 Sertraline HCl (Zoloft) 50 mg DAILY PO 03/16/21 09:00 03/28/21 09:19 Divalproex Sodium (Depakote Sprinkles) 250 mg BID@0900,1700 PO 03/20/21 18:00 03/24/21 17:47 DC 03/24/21 17:20 Divalproex Sodium (Depakote Sprinkles) 375 mg BID@0900,1700 PO 03/24/21 18:00 03/28/21 16:19 DC 03/28/21 09:19 Quetiapine Fumarate (SEROquel) 25 mg 0900,1700 PO 03/27/21 09:00 03/28/21 17:30 Divalproex Sodium (Depakote Sprinkles) 500 mg BID@0900,1700 PO 03/28/21 17:00 03/28/21 17:30 Current Medications Medications (Trade) Dose Ordered Sig/Crista Route PRN Reason Start Time Stop Time Status Last Admin Dose Admin Divalproex Sodium (Depakote Sprinkles) 500 mg BID@0900,1700 PO 03/28/21 17:00 03/28/21 17:30 I have reviewed the current psychotropics carefully including drug interactions. Risk benefit ratio favors no change other than as noted in my dictated progress note. Diagnosis: Problems: (1) Impulse control disorder, unspecified (2) Anxiety disorder, unspecified (3) Dementia, vascular, with depression (4) Dementia, vascular, with delusions (5) Dementia in Alzheimer's disease with depression (6) Dementia in Alzheimer's disease with delusions (7) Dementia of the Alzheimer's type with early onset with behavioral disturbance (8) Major neurocognitive disorder RONALD MENJIVAR MD Mar 28, 2021 22:00
[2021-03-29 06:06] VITALS: BP 158/85
[2021-03-29] MEDS: PANTOPRAZOLE 40 MG TABLET. PO SCH (07:30)
[2021-03-29] MEDS: DIVALPROEX 125 MG CAP.SPRINK PO SCH ×2 (08:12→16:50)
[2021-03-29] MEDS: FINASTERIDE 5 MG TABLET. PO SCH (08:12)
[2021-03-29] MEDS: TAMSULOSIN 0.4 MG CAP.ER.24H. PO SCH (08:12)
[2021-03-29] MEDS: ALLOPURINOL 100 MG TABLET. PO SCH ×2 (08:13→19:58)
[2021-03-29] MEDS: QUEtiapine 25 MG TABLET. PO SCH ×2 (08:13→16:49)
[2021-03-29] MEDS: FUROSEMIDE 40 MG TABLET PO SCH (08:13)
[2021-03-29] MEDS: METOPROLOL TART IMMED RELEASE 25 MG TABLET. PO SCH ×2 (08:13→19:46)
[2021-03-29] MEDS: SERTRALINE 50 MG TABLET. PO SCH (08:13)
--- NOTE | 2021-03-29 14:15 | NUR ---
Nursing note: Client was in dinning room for assessment & am meds crushed in juice. He frequently walks around, sitting still for short periods in the day room and dining rooms. He is restless, disorganized, & confused. Speaks in word salad. Client did not take items from peers during meals at breakfast and lunch. He has been intrusive in the day room & halls towards peers. He is resistant to cares and redirection but has not been combative today. Will continue to monitor.
[2021-03-29 15:43] VITALS: BP 92/63
[2021-03-29] MEDS: RIVAROXABAN 10 MG TABLET. PO SCH (16:49)
[2021-03-29] MEDS: traZODone 150 MG TABLET. PO SCH (19:58)
[2021-03-29] MEDS: MELATONIN 3 MG TABLET PO SCH (19:58)
[2021-03-29] MEDS: QUEtiapine 100 MG TABLET. PO SCH (19:58)
--- NOTE | 2021-03-29 22:05 | PDOC ---
Exam Note: Kevin Note: Please also refer to the separate dictated note~for this date of service dictated separately.~Patient seen individually. Discussed the patient with Nursing staff reviewed the chart.~Reviewed interim history and current functioning. Reviewed vital signs,~Labs/ Radiology~and current medications noted below. Continue current treatment with the changes noted in the dictated addendum note Assessment: Vital Signs/I&O: Vital Signs Date Time Temp Pulse Resp B/P (MAP) Pulse Ox O2 Delivery O2 Flow Rate FiO2 03/29/21 19:46 75 108/67 03/29/21 15:43 97.4 18 97 03/29/21 06:06 Room Air I & O 03/28/21 03/28/21 03/29/21 14:59 22:59 06:59 Intake Total 840 ml 720 ml Balance 840 ml 720 ml Current Medications: Meds: Current Medications Medications (Trade) Dose Ordered Sig/Crista Route PRN Reason Start Time Stop Time Status Last Admin Dose Admin Acetaminophen (Tylenol) 650 mg PRN Q6HRS PRN PO MILD PAIN / TEMP > 100.3'F 03/13/21 21:30 Multi-Ingredient Ointment (Analgesic [place]) 1 mikala PRN QID PRN TP MUSCLE PAIN 03/13/21 21:30 Al Hydroxide/Mg Hydroxide (Mylanta Plus Xs) 15 ml PRN AFTMEALHC PRN PO DYSPEPSIA 03/13/21 21:30 Magnesium Hydroxide (Milk Of Magnesia) 2,400 mg PRN QHS PRN PO CONSTIPATION 03/13/21 21:30 Buspirone HCl (Buspar) 10 mg TID PO 03/13/21 22:15 03/17/21 14:18 DC 03/17/21 13:55 Quetiapine Fumarate (SEROquel) 50 mg PRN DAILY PRN PO prior to lab draws 03/13/21 21:45 03/26/21 16:12 Quetiapine Fumarate (SEROquel) 50 mg PRN Q6HRS PRN PO AGITATION 03/13/21 21:45 Quetiapine Fumarate (SEROquel) 100 mg HS PO 03/13/21 22:15 03/29/21 19:58 Trazodone HCl (Desyrel) 150 mg HS PO 03/13/21 22:15 03/29/21 19:58 Melatonin (Melatonin) 6 mg HS PO 03/13/21 22:15 03/29/21 19:58 Allopurinol (Zyloprim) 100 mg BID PO 03/14/21 12:15 03/29/21 19:58 Finasteride (Proscar) 5 mg DAILY PO 03/14/21 12:15 03/29/21 08:12 Furosemide (Lasix) 40 mg DAILY PO 03/14/21 12:15 03/29/21 08:13 Metoprolol Tartrate (Lopressor) 25 mg BID PO 03/14/21 12:15 03/29/21 08:13 Tamsulosin HCl (Flomax) 0.4 mg DAILY PO 03/14/21 12:15 03/29/21 08:12 Pantoprazole Sodium (Protonix) 40 mg DAILYAC PO 03/15/21 07:30 03/28/21 09:19 Polyethylene Glycol (miraLAX) 17 gm DAILY PO 03/14/21 12:00 03/25/21 11:44 DC 03/25/21 10:15 Non-Formulary Medication (Potassium Chloride (Klor-Con 10)) 30 meq DAILY PO 03/15/21 09:00 03/15/21 10:26 DC Rivaroxaban (Xarelto) 20 mg DAILYBFRSUP PO 03/14/21 17:00 03/14/21 17:30 DC Rivaroxaban (Xarelto) 20 mg DAILYBFRSUP PO 03/14/21 17:30 03/29/21 16:49 Olanzapine (ZyPREXA ZYDIS) 2.5 mg PRN Q2HR PRN PO PSYCHOSIS 03/14/21 18:45 03/28/21 20:03 Divalproex Sodium (Depakote Sprinkles) 125 mg BID@0900,1700 PO 03/15/21 21:00 03/20/21 17:56 DC 03/20/21 08:36 Sertraline HCl (Zoloft) 50 mg DAILY PO 03/16/21 09:00 03/29/21 08:13 Divalproex Sodium (Depakote Sprinkles) 250 mg BID@0900,1700 PO 03/20/21 18:00 03/24/21 17:47 DC 03/24/21 17:20 Divalproex Sodium (Depakote Sprinkles) 375 mg BID@0900,1700 PO 03/24/21 18:00 03/28/21 16:19 DC 03/28/21 09:19 Quetiapine Fumarate (SEROquel) 25 mg 0900,1700 PO 03/27/21 09:00 03/29/21 16:49 Divalproex Sodium (Depakote Sprinkles) 500 mg BID@0900,1700 PO 03/28/21 17:00 03/29/21 16:50 I have reviewed the current psychotropics carefully including drug interactions. Risk benefit ratio favors no change other than as noted in my dictated progress note. Diagnosis: Problems: (1) Impulse control disorder, unspecified (2) Anxiety disorder, unspecified (3) Dementia, vascular, with depression (4) Dementia, vascular, with delusions (5) Dementia in Alzheimer's disease with depression (6) Dementia in Alzheimer's disease with delusions (7) Dementia of the Alzheimer's type with early onset with behavioral disturbance (8) Major neurocognitive disorder RONALD MENJIVAR MD Mar 29, 2021 22:05
--- NOTE | 2021-03-29 22:46 | NUR ---
Patient wandering around in the day room, he is eating snack crackers and trying to get drinks from people when they set them down. Patient resistive with medications crushed in a bite of vanilla ice cream. He eventually took the bite but did not want to finish the rest of the container. Patient is restless and oriented to self only.
[2021-03-30 05:53] VITALS: BP 107/68
[2021-03-30] MEDS: QUEtiapine 25 MG TABLET. PO SCH ×2 (08:03→18:54)
[2021-03-30] MEDS: FINASTERIDE 5 MG TABLET. PO SCH (08:03)
[2021-03-30] MEDS: SERTRALINE 50 MG TABLET. PO SCH (08:03)
[2021-03-30] MEDS: PANTOPRAZOLE 40 MG TABLET. PO SCH (08:03)
[2021-03-30] MEDS: TAMSULOSIN 0.4 MG CAP.ER.24H. PO SCH (08:04)
[2021-03-30] MEDS: METOPROLOL TART IMMED RELEASE 25 MG TABLET. PO SCH ×2 (08:04→19:58)
[2021-03-30] MEDS: ALLOPURINOL 100 MG TABLET. PO SCH ×2 (08:04→19:57)
[2021-03-30] MEDS: FUROSEMIDE 40 MG TABLET PO SCH (08:04)
[2021-03-30] MEDS: DIVALPROEX 125 MG CAP.SPRINK PO SCH ×2 (08:04→18:55)
--- NOTE | 2021-03-30 08:48 | PDOC ---
Exam Note: Kevin Note: This note is a late entry for 03/28/2021 covers elements not covered in my initial note. Subjective: The patient was seen individually in the evening of 03/28/2021 with Nenita BIRMINGHAM, discussed and reviewed the chart. The patient slept 7-3/4 hours previous night. He is confused, restless. Valproic acid level is 40. Metoprolol was held per Dr. Lund. He seems to dislike thick liquids grabbing the drinks off the tray of others in the cafeteria. Review of Systems: No CV, , pulmonary, eye, ENT system symptoms on review. Reliability poor. Mental Status Exam: The patient is oriented to himself. Insight and judgment, recent and remote memory, attention and concentration, fund of knowledge is poor consistent with his diagnoses. Laboratory Data: Reviewed. Impression: Major neurocognitive disorder Alzheimer vascular with delusion, depression, behavioral disturbance. Anxiety disorder unspecified. Impulse control disorder unspecified. Plan: No change from initial note. The patients valproic acid level is 40 on Depakote Sprinkle 375 mg b.i.d. We will increase this to 500 mg b.i.d. Check CBC, CMP, valproic acid level in 3 days. Assessment: Vital Signs/I&O: Vital Signs Date Time Temp Pulse Resp B/P (MAP) Pulse Ox O2 Delivery O2 Flow Rate FiO2 03/30/21 08:04 71 107/68 03/30/21 05:53 97.3 20 94 Room Air I & O 03/29/21 03/29/21 03/30/21 15:00 23:00 07:00 Intake Total 1920 ml 600 ml Balance 1920 ml 600 ml Current Medications: Meds: Current Medications Medications (Trade) Dose Ordered Sig/Crista Route PRN Reason Start Time Stop Time Status Last Admin Dose Admin Acetaminophen (Tylenol) 650 mg PRN Q6HRS PRN PO MILD PAIN / TEMP > 100.3'F 03/13/21 21:30 Multi-Ingredient Ointment (Analgesic [place]) 1 mikala PRN QID PRN TP MUSCLE PAIN 03/13/21 21:30 Al Hydroxide/Mg Hydroxide (Mylanta Plus Xs) 15 ml PRN AFTMEALHC PRN PO DYSPEPSIA 03/13/21 21:30 Magnesium Hydroxide (Milk Of Magnesia) 2,400 mg PRN QHS PRN PO CONSTIPATION 03/13/21 21:30 Buspirone HCl (Buspar) 10 mg TID PO 03/13/21 22:15 03/17/21 14:18 DC 03/17/21 13:55 Quetiapine Fumarate (SEROquel) 50 mg PRN DAILY PRN PO prior to lab draws 03/13/21 21:45 03/26/21 16:12 Quetiapine Fumarate (SEROquel) 50 mg PRN Q6HRS PRN PO AGITATION 03/13/21 21:45 Quetiapine Fumarate (SEROquel) 100 mg HS PO 03/13/21 22:15 03/29/21 19:58 Trazodone HCl (Desyrel) 150 mg HS PO 03/13/21 22:15 03/29/21 19:58 Melatonin (Melatonin) 6 mg HS PO 03/13/21 22:15 03/29/21 19:58 Allopurinol (Zyloprim) 100 mg BID PO 03/14/21 12:15 03/30/21 08:04 Finasteride (Proscar) 5 mg DAILY PO 03/14/21 12:15 03/30/21 08:03 Furosemide (Lasix) 40 mg DAILY PO 03/14/21 12:15 03/30/21 08:04 Metoprolol Tartrate (Lopressor) 25 mg BID PO 03/14/21 12:15 03/30/21 08:04 Tamsulosin HCl (Flomax) 0.4 mg DAILY PO 03/14/21 12:15 03/30/21 08:04 Pantoprazole Sodium (Protonix) 40 mg DAILYAC PO 03/15/21 07:30 03/30/21 08:03 Polyethylene Glycol (miraLAX) 17 gm DAILY PO 03/14/21 12:00 03/25/21 11:44 DC 03/25/21 10:15 Non-Formulary Medication (Potassium Chloride (Klor-Con 10)) 30 meq DAILY PO 03/15/21 09:00 03/15/21 10:26 DC Rivaroxaban (Xarelto) 20 mg DAILYBFRSUP PO 03/14/21 17:00 03/14/21 17:30 DC Rivaroxaban (Xarelto) 20 mg DAILYBFRSUP PO 03/14/21 17:30 03/29/21 16:49 Olanzapine (ZyPREXA ZYDIS) 2.5 mg PRN Q2HR PRN PO PSYCHOSIS 03/14/21 18:45 03/28/21 20:03 Divalproex Sodium (Depakote Sprinkles) 125 mg BID@0900,1700 PO 03/15/21 21:00 03/20/21 17:56 DC 03/20/21 08:36 Sertraline HCl (Zoloft) 50 mg DAILY PO 03/16/21 09:00 03/30/21 08:03 Divalproex Sodium (Depakote Sprinkles) 250 mg BID@0900,1700 PO 03/20/21 18:00 03/24/21 17:47 DC 03/24/21 17:20 Divalproex Sodium (Depakote Sprinkles) 375 mg BID@0900,1700 PO 03/24/21 18:00 03/28/21 16:19 DC 03/28/21 09:19 Quetiapine Fumarate (SEROquel) 25 mg 0900,1700 PO 03/27/21 09:00 03/30/21 08:03 Divalproex Sodium (Depakote Sprinkles) 500 mg BID@0900,1700 PO 03/28/21 17:00 03/30/21 08:04 I have reviewed the current psychotropics carefully including drug interactions. Risk benefit ratio favors no change other than as noted in my dictated progress note. Diagnosis: Problems: (1) Impulse control disorder, unspecified (2) Anxiety disorder, unspecified (3) Dementia, vascular, with depression (4) Dementia, vascular, with delusions (5) Dementia in Alzheimer's disease with depression (6) Dementia in Alzheimer's disease with delusions (7) Dementia of the Alzheimer's type with early onset with behavioral disturbance (8) Major neurocognitive disorder RONALD MENJIVAR MD Mar 30, 2021 08:48
--- NOTE | 2021-03-30 09:16 | PDOC ---
Exam Note: Kevin Note: This note is a late entry for 03/29/2021 covers elements not covered in my initial note. Subjective: The patient was seen individually in the evening of 03/29/2021 with Nenita BIRMINGHAM, discussed and reviewed the chart. The patient slept 7-3/4 hours previous night. He is less intrusive, confused. He has boundary issues. He still tries to grab thin liquids off the trays of other patients. Review of Systems: No CV, , pulmonary, eye, ENT system symptoms on review. Reliability poor. Mental Status Exam: The patient is oriented to himself. Insight and judgment, recent and remote memory, attention and concentration, fund of knowledge is poor consistent with his diagnoses. Laboratory Data: Reviewed. Impression: Major neurocognitive disorder Alzheimer vascular with delusion, depression, behavioral disturbance. Anxiety disorder unspecified. Impulse control disorder unspecified. Plan: No change from initial note. No further increase in Depakote. Monitor labs level. Adjust as clinically indicated. Assessment: Vital Signs/I&O: Vital Signs Date Time Temp Pulse Resp B/P (MAP) Pulse Ox O2 Delivery O2 Flow Rate FiO2 03/30/21 08:04 71 107/68 03/30/21 05:53 97.3 20 94 Room Air I & O 03/29/21 03/29/21 03/30/21 15:00 23:00 07:00 Intake Total 1920 ml 600 ml Balance 1920 ml 600 ml Current Medications: Meds: Current Medications Medications (Trade) Dose Ordered Sig/Crista Route PRN Reason Start Time Stop Time Status Last Admin Dose Admin Acetaminophen (Tylenol) 650 mg PRN Q6HRS PRN PO MILD PAIN / TEMP > 100.3'F 03/13/21 21:30 Multi-Ingredient Ointment (Analgesic [place]) 1 mikala PRN QID PRN TP MUSCLE PAIN 03/13/21 21:30 Al Hydroxide/Mg Hydroxide (Mylanta Plus Xs) 15 ml PRN AFTMEALHC PRN PO DYSPEPSIA 03/13/21 21:30 Magnesium Hydroxide (Milk Of Magnesia) 2,400 mg PRN QHS PRN PO CONSTIPATION 03/13/21 21:30 Buspirone HCl (Buspar) 10 mg TID PO 03/13/21 22:15 03/17/21 14:18 DC 03/17/21 13:55 Quetiapine Fumarate (SEROquel) 50 mg PRN DAILY PRN PO prior to lab draws 03/13/21 21:45 03/26/21 16:12 Quetiapine Fumarate (SEROquel) 50 mg PRN Q6HRS PRN PO AGITATION 03/13/21 21:45 Quetiapine Fumarate (SEROquel) 100 mg HS PO 03/13/21 22:15 03/29/21 19:58 Trazodone HCl (Desyrel) 150 mg HS PO 03/13/21 22:15 03/29/21 19:58 Melatonin (Melatonin) 6 mg HS PO 03/13/21 22:15 03/29/21 19:58 Allopurinol (Zyloprim) 100 mg BID PO 03/14/21 12:15 03/30/21 08:04 Finasteride (Proscar) 5 mg DAILY PO 03/14/21 12:15 03/30/21 08:03 Furosemide (Lasix) 40 mg DAILY PO 03/14/21 12:15 03/30/21 08:04 Metoprolol Tartrate (Lopressor) 25 mg BID PO 03/14/21 12:15 03/30/21 08:04 Tamsulosin HCl (Flomax) 0.4 mg DAILY PO 03/14/21 12:15 03/30/21 08:04 Pantoprazole Sodium (Protonix) 40 mg DAILYAC PO 03/15/21 07:30 03/30/21 08:03 Polyethylene Glycol (miraLAX) 17 gm DAILY PO 03/14/21 12:00 03/25/21 11:44 DC 03/25/21 10:15 Non-Formulary Medication (Potassium Chloride (Klor-Con 10)) 30 meq DAILY PO 03/15/21 09:00 03/15/21 10:26 DC Rivaroxaban (Xarelto) 20 mg DAILYBFRSUP PO 03/14/21 17:00 03/14/21 17:30 DC Rivaroxaban (Xarelto) 20 mg DAILYBFRSUP PO 03/14/21 17:30 03/29/21 16:49 Olanzapine (ZyPREXA ZYDIS) 2.5 mg PRN Q2HR PRN PO PSYCHOSIS 03/14/21 18:45 03/28/21 20:03 Divalproex Sodium (Depakote Sprinkles) 125 mg BID@0900,1700 PO 03/15/21 21:00 03/20/21 17:56 DC 03/20/21 08:36 Sertraline HCl (Zoloft) 50 mg DAILY PO 03/16/21 09:00 03/30/21 08:03 Divalproex Sodium (Depakote Sprinkles) 250 mg BID@0900,1700 PO 03/20/21 18:00 03/24/21 17:47 DC 03/24/21 17:20 Divalproex Sodium (Depakote Sprinkles) 375 mg BID@0900,1700 PO 03/24/21 18:00 03/28/21 16:19 DC 03/28/21 09:19 Quetiapine Fumarate (SEROquel) 25 mg 0900,1700 PO 03/27/21 09:00 03/30/21 08:03 Divalproex Sodium (Depakote Sprinkles) 500 mg BID@0900,1700 PO 03/28/21 17:00 03/30/21 08:04 I have reviewed the current psychotropics carefully including drug interactions. Risk benefit ratio favors no change other than as noted in my dictated progress note. Diagnosis: Problems: (1) Impulse control disorder, unspecified (2) Anxiety disorder, unspecified (3) Dementia, vascular, with depression (4) Dementia, vascular, with delusions (5) Dementia in Alzheimer's disease with depression (6) Dementia in Alzheimer's disease with delusions (7) Dementia of the Alzheimer's type with early onset with behavioral disturbance (8) Major neurocognitive disorder RONALD MENJIVAR MD Mar 30, 2021 09:16
--- NOTE | 2021-03-30 13:04 | NUR ---
WEEKLY ACTIVITY THERAPY NOTE Date of Admission: 03/13/21 Date of AT Assessment: 03/16 Precipitating behaviors that initiated intake and admission:it was reported that patient has been agitated, aggressive, combative with cares, sundowning, impulsive, has "poor safety" and refused medications and vital signs. Goal aimed:increase engagement and relaxation skills Initial Goal:Pt will participate in at least three individual or group Activity Therapy sessions before discharge. Weekly progress towards goal: on track Group participation level: 11/19 (03/24-picture puzzle, 03/25-horseshoes) Weekly highlights: identified one animal correctly in picture puzzle group and tossed horseshoe once in group Behaviors observed: decreased wandering as week has progressed, intrusive-touching staff/peers, hand holding, kissing hands, etc but calm with redirection Plan: no change to goal Beneficial adaptations: Addendum: 03/30/21 at 1321 by MOHAMUD DOLAN ACT Pt. participated in [employer] on 03/19 which means Pt. has met goal. 03/30-repeat goal
--- NOTE | 2021-03-30 13:49 | NUR ---
[facility] team note: Pt , participated in treatment team via phone. Pt continues to be on finger foods and eats roughly 75% of meals. Pt slept 8 hours last night; however, sleeps on average 7.5 hours. Pt appears to be less intrusive if you set pt up with his meals and drinks first; versus waiting, which leads him to attempt to take things from his peers. Pt takes his medications crushed and mixed in liquids. Pt has placement at [facility] [address].
--- NOTE | 2021-03-30 14:39 | TX PLAN ---
Interdisciplinary Tx Plan Admission Information March 13, 2021 at 19:45 Legal Status (on Admission): Voluntary DPOA/Guardian Name: Lila Grigsby Contact Other Contact Name: [facility] Other Contact Verified Code Status: DNR Allergies: Coded Allergies: No Known Drug Allergies (Unverified , 03/13/21) Diagnoses Primary Diagnosis: Major neurocognitive D/O, vascular Alzheimer's with delusions, depression with BD Reasons for Admission: Aggressive, Combative, Confusion/Disoriented, Poor impulse control Problem in Patient's Words: Decline in cognition based off his Dementia prognosis. Additional Admission Comments: According to the intake, pt is agitated, aggressive/combative at times of care, sundowning, impulsive, poor safety, refuses medications and vital signs. Problems Active Problems: Sundowning Impulsive Restless Resistive with Cares Agitated Wandering Inactive Problems: None Pt Strengths/Limitations Ability for [place]: Poor Cognitive Functioning/Ability: Poor Communication Skills/Ability: Poor Financial Resources: Good Insight/Judgement: Poor Intellectual Ability: Poor Physical Health: Poor Social Skills: Poor Stability in Family: Good Stability in School/Work: Poor Verbal Skills: Poor Discharge Criteria Discharge Criteria: No need for close observ., Adequate arrangements @DC, Improved behavior, Improved mood/thought Preliminary Discharge Plan Preliminary DC Plan: Placement Needed Special Precautions Fall Risk: Low Initial D/C Plan Pt will be sent to a Memory Care facility once stable. Identified Discharge Needs: Referrals to a higher level of care Currently Utilized Resources Currently Utilized Resources/P: Primary Care Physician Identified Problems/Hx/Goals Objectives/Short-Term Goals Short Term Goals: Dec. Aggression, Dec. Outbursts, Medication Stabilization, Monitor Med Effects, Promote Coping Skill Short Term Goals in Patient's: N/A Interventions/Frequency Staff Interventions/Frequency&: Psychiatrist to assess pt at least 3x per week for medication management. Social Work to assess pt at least 2x per week to identify barriers to care and finalize discharge planning. Nursing to assess medication effects, behavior modification and completion of 15 minute checks daily. Encourage participation in group activities (if applicable) or 1:1 engagement based off activity dept. goals. 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 Community Follow-up Primary Care Physician Community Provider/Family Inpu: Pt participated in treatement team via telephone. Treatment Plan Explained Patient/Call Center Rn had this treatment plan explained to him/her as indicated by the signature below and has been given the opportunity to ask questions and make suggestions: Date: Patient/Call Center Rn Signature: Status Update Update Pt , participated in treatment team via phone. Pt continues to be on finger foods and eats roughly 75% of meals. Pt slept 8 hours last night; however, sleeps on average 7.5 hours. Pt appears to be less intrusive if you set pt up with his meals and drinks first; versus waiting, which leads him to attempt to take things from his peers. Pt takes his medications crushed and mixed in liquids. Pt has placement at [place] [facility]. ALBERT ULLOA Mar 30, 2021 14:39
[2021-03-30 16:00] VITALS: BP 101/65
--- NOTE | 2021-03-30 16:50 | NUR ---
Patient alert to self continues to wander the unit patient gets meds crushed in his fluids patient still struggles with being cooperative with cares and allowing staff to change him and assist with dressing. Patient continues intrusive behavior which is minimal at this time during eating times we try to give patient his food tray first so he is more focused on his food in front of him and when he is seen grabbing others things our approach to redirect him is more warm and gentle which he reacts differently and is not as resistive or aggressive. Patient vitals stable and wnl of baseline patient does have a good appetite and is given finger foods so he is able to wander and eat his food. Patient has a tentative D/C date of later this week to [facility] [address] [place] [address] in [facility]. Will continue to monitor patient.
[2021-03-30] MEDS: RIVAROXABAN 10 MG TABLET. PO SCH (18:54)
[2021-03-30 19:48] VITALS: BP 114/57
[2021-03-30] MEDS: traZODone 150 MG TABLET. PO SCH (19:57)
[2021-03-30] MEDS: QUEtiapine 100 MG TABLET. PO SCH (19:57)
[2021-03-30] MEDS: MELATONIN 3 MG TABLET PO SCH (19:57)
--- NOTE | 2021-03-30 22:04 | PDOC ---
Exam Note: Kevin Note: Please also refer to the separate dictated note~for this date of service dictated separately.~Patient seen individually. Discussed the patient with Nursing staff reviewed the chart.~Reviewed interim history and current functioning. Reviewed vital signs,~Labs/ Radiology~and current medications noted below. Continue current treatment with the changes noted in the dictated addendum note Assessment: Vital Signs/I&O: Vital Signs Date Time Temp Pulse Resp B/P (MAP) Pulse Ox O2 Delivery O2 Flow Rate FiO2 03/30/21 19:58 74 114/57 03/30/21 16:00 98.3 20 98 03/30/21 05:53 Room Air I & O 03/29/21 03/29/21 03/30/21 15:00 23:00 07:00 Intake Total 1920 ml 600 ml Balance 1920 ml 600 ml Current Medications: Meds: Current Medications Medications (Trade) Dose Ordered Sig/Crista Route PRN Reason Start Time Stop Time Status Last Admin Dose Admin Acetaminophen (Tylenol) 650 mg PRN Q6HRS PRN PO MILD PAIN / TEMP > 100.3'F 03/13/21 21:30 Multi-Ingredient Ointment (Analgesic [place]) 1 mikala PRN QID PRN TP MUSCLE PAIN 03/13/21 21:30 Al Hydroxide/Mg Hydroxide (Mylanta Plus Xs) 15 ml PRN AFTMEALHC PRN PO DYSPEPSIA 03/13/21 21:30 Magnesium Hydroxide (Milk Of Magnesia) 2,400 mg PRN QHS PRN PO CONSTIPATION 03/13/21 21:30 Buspirone HCl (Buspar) 10 mg TID PO 03/13/21 22:15 03/17/21 14:18 DC 03/17/21 13:55 Quetiapine Fumarate (SEROquel) 50 mg PRN DAILY PRN PO prior to lab draws 03/13/21 21:45 03/26/21 16:12 Quetiapine Fumarate (SEROquel) 50 mg PRN Q6HRS PRN PO AGITATION 03/13/21 21:45 Quetiapine Fumarate (SEROquel) 100 mg HS PO 03/13/21 22:15 03/30/21 19:57 Trazodone HCl (Desyrel) 150 mg HS PO 03/13/21 22:15 03/30/21 19:57 Melatonin (Melatonin) 6 mg HS PO 03/13/21 22:15 03/30/21 19:57 Allopurinol (Zyloprim) 100 mg BID PO 03/14/21 12:15 03/30/21 19:57 Finasteride (Proscar) 5 mg DAILY PO 03/14/21 12:15 03/30/21 08:03 Furosemide (Lasix) 40 mg DAILY PO 03/14/21 12:15 03/30/21 08:04 Metoprolol Tartrate (Lopressor) 25 mg BID PO 03/14/21 12:15 03/30/21 19:58 Tamsulosin HCl (Flomax) 0.4 mg DAILY PO 03/14/21 12:15 03/30/21 08:04 Pantoprazole Sodium (Protonix) 40 mg DAILYAC PO 03/15/21 07:30 03/30/21 08:03 Polyethylene Glycol (miraLAX) 17 gm DAILY PO 03/14/21 12:00 03/25/21 11:44 DC 03/25/21 10:15 Non-Formulary Medication (Potassium Chloride (Klor-Con 10)) 30 meq DAILY PO 03/15/21 09:00 03/15/21 10:26 DC Rivaroxaban (Xarelto) 20 mg DAILYBFRSUP PO 03/14/21 17:00 03/14/21 17:30 DC Rivaroxaban (Xarelto) 20 mg DAILYBFRSUP PO 03/14/21 17:30 03/30/21 18:54 Olanzapine (ZyPREXA ZYDIS) 2.5 mg PRN Q2HR PRN PO PSYCHOSIS 03/14/21 18:45 03/28/21 20:03 Divalproex Sodium (Depakote Sprinkles) 125 mg BID@0900,1700 PO 03/15/21 21:00 03/20/21 17:56 DC 03/20/21 08:36 Sertraline HCl (Zoloft) 50 mg DAILY PO 03/16/21 09:00 03/30/21 08:03 Divalproex Sodium (Depakote Sprinkles) 250 mg BID@0900,1700 PO 03/20/21 18:00 03/24/21 17:47 DC 03/24/21 17:20 Divalproex Sodium (Depakote Sprinkles) 375 mg BID@0900,1700 PO 03/24/21 18:00 03/28/21 16:19 DC 03/28/21 09:19 Quetiapine Fumarate (SEROquel) 25 mg 0900,1700 PO 03/27/21 09:00 03/30/21 18:54 Divalproex Sodium (Depakote Sprinkles) 500 mg BID@0900,1700 PO 03/28/21 17:00 03/30/21 18:55 I have reviewed the current psychotropics carefully including drug interactions. Risk benefit ratio favors no change other than as noted in my dictated progress note. Diagnosis: Problems: (1) Impulse control disorder, unspecified (2) Anxiety disorder, unspecified (3) Dementia, vascular, with depression (4) Dementia, vascular, with delusions (5) Dementia in Alzheimer's disease with depression (6) Dementia in Alzheimer's disease with delusions (7) Dementia of the Alzheimer's type with early onset with behavioral disturbance (8) Major neurocognitive disorder RONALD MENJIVAR MD Mar 30, 2021 22:04
--- NOTE | 2021-03-30 22:35 | NUR ---
Patient sat calmly on couch in day room with staff member, meds were taken crushed and dissolved in diet sprite mixed with cranberry juice. He was compliant. Patient is disorganized and was delusional tonight, stating that he was going "out to mow". Staff was able to verbally redirect him by telling him it was too hot to mow right now, we would wait for a bit. Patient has been incontinent of stool twice this evening. He attempts to walk away while brief is being changed, he is not combative but gets agitated if he cannot walk around. Staff x3 required to change him at this time r/t keeping him still and in his room. Patient went to bed without issue and is sleeping at this time.
[2021-03-31 05:50] VITALS: BP 118/60
--- NOTE | 2021-03-31 07:49 | PDOC ---
Exam Note: Kevin Note: This note is a late entry for 03/30/2021 covers elements not covered in my initial note. Subjective: The patient was reviewed in the morning of 03/30/2021 for a treatment team meeting with Amalia Campos, Madina Aguilar and Kerline (manager social media), Rosario, activity therapy and Fransico BIRMINGHAM, discussed and reviewed the chart. The patient slept 8 hours previous night. His Lila attended the treatment team meeting. He is less agitated and less wandering. 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 Review of Systems: No CV, , pulmonary, eye, ENT system symptoms on review. Mental Status Exam: The patient is oriented to himself. Insight and judgment, recent and remote memory, attention and concentration, fund of knowledge is poor consistent with his diagnoses. Laboratory Data: Reviewed. Impression: Major neurocognitive disorder Alzheimer vascular with delusion, depression, behavioral disturbance. Anxiety disorder unspecified. Impulse control disorder unspecified. Plan: No change from initial note. Assessment: Vital Signs/I&O: Vital Signs Date Time Temp Pulse Resp B/P (MAP) Pulse Ox O2 Delivery O2 Flow Rate FiO2 03/31/21 05:50 97.6 71 16 118/60 (79) 97 Room Air I & O 03/30/21 03/30/21 03/31/21 15:00 23:00 07:00 Intake Total 1320 ml 0 ml 120 ml Balance 1320 ml 0 ml 120 ml Current Medications: Meds: Current Medications Medications (Trade) Dose Ordered Sig/Crista Route PRN Reason Start Time Stop Time Status Last Admin Dose Admin Acetaminophen (Tylenol) 650 mg PRN Q6HRS PRN PO MILD PAIN / TEMP > 100.3'F 03/13/21 21:30 Multi-Ingredient Ointment (Analgesic [place]) 1 mikala PRN QID PRN TP MUSCLE PAIN 03/13/21 21:30 Al Hydroxide/Mg Hydroxide (Mylanta Plus Xs) 15 ml PRN AFTMEALHC PRN PO DYSPEPSIA 03/13/21 21:30 Magnesium Hydroxide (Milk Of Magnesia) 2,400 mg PRN QHS PRN PO CONSTIPATION 03/13/21 21:30 Buspirone HCl (Buspar) 10 mg TID PO 03/13/21 22:15 03/17/21 14:18 DC 03/17/21 13:55 Quetiapine Fumarate (SEROquel) 50 mg PRN DAILY PRN PO prior to lab draws 03/13/21 21:45 03/26/21 16:12 Quetiapine Fumarate (SEROquel) 50 mg PRN Q6HRS PRN PO AGITATION 03/13/21 21:45 Quetiapine Fumarate (SEROquel) 100 mg HS PO 03/13/21 22:15 03/30/21 19:57 Trazodone HCl (Desyrel) 150 mg HS PO 03/13/21 22:15 03/30/21 19:57 Melatonin (Melatonin) 6 mg HS PO 03/13/21 22:15 03/30/21 19:57 Allopurinol (Zyloprim) 100 mg BID PO 03/14/21 12:15 03/30/21 19:57 Finasteride (Proscar) 5 mg DAILY PO 03/14/21 12:15 03/30/21 08:03 Furosemide (Lasix) 40 mg DAILY PO 03/14/21 12:15 03/30/21 08:04 Metoprolol Tartrate (Lopressor) 25 mg BID PO 03/14/21 12:15 03/30/21 19:58 Tamsulosin HCl (Flomax) 0.4 mg DAILY PO 03/14/21 12:15 03/30/21 08:04 Pantoprazole Sodium (Protonix) 40 mg DAILYAC PO 03/15/21 07:30 03/30/21 08:03 Polyethylene Glycol (miraLAX) 17 gm DAILY PO 03/14/21 12:00 03/25/21 11:44 DC 03/25/21 10:15 Non-Formulary Medication (Potassium Chloride (Klor-Con 10)) 30 meq DAILY PO 03/15/21 09:00 03/15/21 10:26 DC Rivaroxaban (Xarelto) 20 mg DAILYBFRSUP PO 03/14/21 17:00 03/14/21 17:30 DC Rivaroxaban (Xarelto) 20 mg DAILYBFRSUP PO 03/14/21 17:30 03/30/21 18:54 Olanzapine (ZyPREXA ZYDIS) 2.5 mg PRN Q2HR PRN PO PSYCHOSIS 03/14/21 18:45 03/28/21 20:03 Divalproex Sodium (Depakote Sprinkles) 125 mg BID@0900,1700 PO 03/15/21 21:00 03/20/21 17:56 DC 03/20/21 08:36 Sertraline HCl (Zoloft) 50 mg DAILY PO 03/16/21 09:00 03/30/21 08:03 Divalproex Sodium (Depakote Sprinkles) 250 mg BID@0900,1700 PO 03/20/21 18:00 03/24/21 17:47 DC 03/24/21 17:20 Divalproex Sodium (Depakote Sprinkles) 375 mg BID@0900,1700 PO 03/24/21 18:00 03/28/21 16:19 DC 03/28/21 09:19 Quetiapine Fumarate (SEROquel) 25 mg 0900,1700 PO 03/27/21 09:00 03/30/21 18:54 Divalproex Sodium (Depakote Sprinkles) 500 mg BID@0900,1700 PO 03/28/21 17:00 03/30/21 18:55 I have reviewed the current psychotropics carefully including drug interactions. Risk benefit ratio favors no change other than as noted in my dictated progress note. Diagnosis: Problems: (1) Impulse control disorder, unspecified (2) Anxiety disorder, unspecified (3) Dementia, vascular, with depression (4) Dementia, vascular, with delusions (5) Dementia in Alzheimer's disease with depression (6) Dementia in Alzheimer's disease with delusions (7) Dementia of the Alzheimer's type with early onset with behavioral disturbance (8) Major neurocognitive disorder RONALD MENJIVAR MD Mar 31, 2021 07:49
[2021-03-31] MEDS: QUEtiapine 25 MG TABLET. PO SCH ×2 (08:03→17:19)
[2021-03-31] MEDS: ALLOPURINOL 100 MG TABLET. PO SCH ×2 (08:03→20:01)
[2021-03-31] MEDS: FINASTERIDE 5 MG TABLET. PO SCH (08:03)
[2021-03-31] MEDS: FUROSEMIDE 40 MG TABLET PO SCH (08:03)
[2021-03-31] MEDS: PANTOPRAZOLE 40 MG TABLET. PO SCH (08:03)
[2021-03-31] MEDS: SERTRALINE 50 MG TABLET. PO SCH (08:03)
[2021-03-31] MEDS: TAMSULOSIN 0.4 MG CAP.ER.24H. PO SCH (08:03)
[2021-03-31] MEDS: METOPROLOL TART IMMED RELEASE 25 MG TABLET. PO SCH ×2 (08:04→20:02)
[2021-03-31] MEDS: DIVALPROEX 125 MG CAP.SPRINK PO SCH ×2 (08:04→17:20)
--- NOTE | 2021-03-31 10:30 | NUR ---
DARSHANA faxed over notes to Tiffany at [facility]; they have accepted pt and is considering discharge for . Tiffany will contact DARSHANA when possible to discuss transport and confirmation of discharge plans.
[2021-03-31 10:32] LABS: BASO % 1 % (0-3); EOS # 0.2 x10^3/uL (0.0-0.7); EOS % 2 % (0-3); HEMATOCRIT 37.7 % (39.0-53.0); HEMOGLOBIN 12.6 g/dL (13.0-17.5); LYMPH # 1.1 x10^3/uL (1.0-4.8); LYMPH % 15 % (24-48); MEAN CORPUSCULAR HEMOGLOBIN 30 pg (25-35); MEAN CORPUSCULAR HGB CONC 34 g/dL (31-37); MEAN CORPUSCULAR VOLUME 90 fL (79-100); MONO # 0.7 x10^3/uL (0.0-1.1); MONO % 10 % (0-9); NEUT # 5.4 x10^3uL (1.8-7.7); NEUT % 73 % (31-73); PLATELET COUNT 153 x10^3/uL (140-400); RED BLOOD COUNT 4.18 x10^6/uL (4.30-5.70); RED CELL DISTRIBUTION WIDTH 16.4 % (11.5-14.5); WHITE BLOOD COUNT 7.4 x10^3/uL (4.0-11.0)
[2021-03-31 10:58] LABS: ALBUMIN 2.9 g/dL (3.4-5.0); ALBUMIN/GLOBULIN RATIO 0.9 (1.0-1.7); ALK PHOS 29 U/L (46-116); ALT (SGPT) 19 U/L (16-63); ANION GAP 7 (6-14); AST (SGOT) 17 U/L (15-37); BLOOD UREA NITROGEN 11 mg/dL (8-26); BUN/CREATININE RATIO 14 (6-20); CALCIUM 8.7 mg/dL (8.5-10.1); CARBON DIOXIDE 31 mmol/L (21-32); CHLORIDE 110 mmol/L (98-107); CREATININE 0.8 mg/dL (0.7-1.3); GFR 93.3; GLUCOSE 103 mg/dL (70-99); POTASSIUM 4.2 mmol/L (3.5-5.1); SODIUM 148 mmol/L (136-145); TOTAL BILIRUBIN 0.7 mg/dL (0.2-1.0); TOTAL PROTEIN 6.1 g/dL (6.4-8.2)
[2021-03-31 10:59] LABS: VAL ACID 50 mcg/mL (50-100)
[2021-03-31 15:42] VITALS: BP 122/62
--- NOTE | 2021-03-31 16:01 | NUR ---
DARSHANA received call from Lila who wanted to find out if pt VPA was back yet. DARSHANA informed pt that it was therapeutic at 50 and we'll be able to look at discharging pt on as planned. Pt was very happy to hear the news. DARSHANA did let Lila know that DARSHANA has been in email communication with Tiffany and she will plan to set up secure transport. DARSHANA has asked if a Covid test is required considering the fact that pt has had both Covid vaccines and DARSHANA has not heard back from Tiffany yet on this matter. Lila will plan to follow up with Tiffany to ensure pt bed is delivered before discharging on .
--- NOTE | 2021-03-31 16:14 | NUR ---
[facility] Social Work Discharge Planning Form Patient Name CHARLENE NICOLAS Admit Date: 13 Mar 2021 DISCHARGE PLAN Discharge Destination: Pt to discharge to [facility] Assessment: N/A Level II Assessment: N/A Transportation: [place] to set up secure transport and call with pick pulling machine operator time. Special Instructions/Notes: Please fax discharge orders, discharge medication list and discharge summary to the fax number listed below. DISCHARGE TO FACILITY Facility: [facility] Address: [address] [place] [address] Contact Name: Tiffany Donald, Admissions: Contact Name: Please ask for the nurse caring for pt upon admission: PCP: Dr. Arron Flores
[2021-03-31] MEDS: RIVAROXABAN 10 MG TABLET. PO SCH (17:20)
--- NOTE | 2021-03-31 17:35 | NUR ---
Patient alert to self only patient continues to wander unit very disorganized and resistive with cares patient had a lab draw today which took several staff members to assist with lab draw VPA level [address] Villalobos. Patient does have a good appetite his ability to focus on the task of eating or any task is a challenge for him so he wanders while he is eating and does not sit long enough to finish his meal which is the reason staff switched him to finger foods. Patient vitals wnl of baseline he receives his meals in fluids which he drinks a lot. Patient will be D/C this 04/02 to [facility] on [address] [place] [address] [place] [address] Oneal will sign D/C order tomorrow. Will continue to monitor patient. Addendum: 03/31/21 at 1742 by SWETHA PHELAN RN Pharmacy called to advise patient is on xarelto and his hgb and platelet count are still wnl and stable but they are dropping pt does not have any visible s/s of bleeding and he will be put on Dr Oneal list to see tomorrow.
[2021-03-31] MEDS: traZODone 150 MG TABLET. PO SCH (20:01)
[2021-03-31] MEDS: QUEtiapine 100 MG TABLET. PO SCH (20:01)
[2021-03-31] MEDS: MELATONIN 3 MG TABLET PO SCH (20:02)
--- NOTE | 2021-03-31 22:11 | PDOC ---
Exam Note: Kevin Note: Please also refer to the separate dictated note~for this date of service dictated separately.~Patient seen individually. Discussed the patient with Nursing staff reviewed the chart.~Reviewed interim history and current functioning. Reviewed vital signs,~Labs/ Radiology~and current medications noted below. Continue current treatment with the changes noted in the dictated addendum note Assessment: Vital Signs/I&O: Vital Signs Date Time Temp Pulse Resp B/P (MAP) Pulse Ox O2 Delivery O2 Flow Rate FiO2 03/31/21 20:02 72 122/62 03/31/21 15:42 97.9 18 97 03/31/21 05:50 Room Air I & O 03/30/21 03/30/21 03/31/21 14:59 22:59 06:59 Intake Total 1320 ml 0 ml 120 ml Balance 1320 ml 0 ml 120 ml Labs: Laboratory Tests Test 03/31/21 10:24 White Blood Count 7.4 x10^3/uL (4.0-11.0) Red Blood Count 4.18 x10^6/uL (4.30-5.70) L Hemoglobin 12.6 g/dL (13.0-17.5) L Hematocrit 37.7 % (39.0-53.0) L Mean Corpuscular Volume 90 fL (79-100) Mean Corpuscular Hemoglobin 30 pg (25-35) Mean Corpuscular Hemoglobin Concent 34 g/dL (31-37) Red Cell Distribution Width 16.4 % (11.5-14.5) H Platelet Count 153 x10^3/uL (140-400) Neutrophils (%) (Auto) 73 % (31-73) Lymphocytes (%) (Auto) 15 % (24-48) L Monocytes (%) (Auto) 10 % (0-9) H Eosinophils (%) (Auto) 2 % (0-3) Basophils (%) (Auto) 1 % (0-3) Neutrophils # (Auto) 5.4 x10^3uL (1.8-7.7) Lymphocytes # (Auto) 1.1 x10^3/uL (1.0-4.8) Monocytes # (Auto) 0.7 x10^3/uL (0.0-1.1) Eosinophils # (Auto) 0.2 x10^3/uL (0.0-0.7) Basophils # (Auto) 0.0 x10^3/uL (0.0-0.2) Sodium Level 148 mmol/L (136-145) H Potassium Level 4.2 mmol/L (3.5-5.1) Chloride Level 110 mmol/L (98-107) H Carbon Dioxide Level 31 mmol/L (21-32) Anion Gap 7 (6-14) Blood Urea Nitrogen 11 mg/dL (8-26) Creatinine 0.8 mg/dL (0.7-1.3) Estimated GFR (Cockcroft-Gault) 93.3 BUN/Creatinine Ratio 14 (6-20) Glucose Level 103 mg/dL (70-99) H Calcium Level 8.7 mg/dL (8.5-10.1) Total Bilirubin 0.7 mg/dL (0.2-1.0) Aspartate Amino Transferase (AST) 17 U/L (15-37) Alanine Aminotransferase (ALT) 19 U/L (16-63) Alkaline Phosphatase 29 U/L (46-116) L Total Protein 6.1 g/dL (6.4-8.2) L Albumin 2.9 g/dL (3.4-5.0) L Albumin/Globulin Ratio 0.9 (1.0-1.7) L Valproic Acid Level 50 mcg/mL (50-100) Valproic Acid Last Dose Date 03/30/21 Valproic Acid Last Dose Time 2100 Current Medications: Meds: Laboratory Tests Test 03/31/21 10:24 White Blood Count 7.4 x10^3/uL Red Blood Count 4.18 x10^6/uL Hemoglobin 12.6 g/dL Hematocrit 37.7 % Mean Corpuscular Volume 90 fL Mean Corpuscular Hemoglobin 30 pg Mean Corpuscular Hemoglobin Concent 34 g/dL Red Cell Distribution Width 16.4 % Platelet Count 153 x10^3/uL Neutrophils (%) (Auto) 73 % Lymphocytes (%) (Auto) 15 % Monocytes (%) (Auto) 10 % Eosinophils (%) (Auto) 2 % Basophils (%) (Auto) 1 % Neutrophils # (Auto) 5.4 x10^3uL Lymphocytes # (Auto) 1.1 x10^3/uL Monocytes # (Auto) 0.7 x10^3/uL Eosinophils # (Auto) 0.2 x10^3/uL Basophils # (Auto) 0.0 x10^3/uL Sodium Level 148 mmol/L Potassium Level 4.2 mmol/L Chloride Level 110 mmol/L Carbon Dioxide Level 31 mmol/L Anion Gap 7 Blood Urea Nitrogen 11 mg/dL Creatinine 0.8 mg/dL Estimated GFR (Cockcroft-Gault) 93.3 BUN/Creatinine Ratio 14 Glucose Level 103 mg/dL Calcium Level 8.7 mg/dL Total Bilirubin 0.7 mg/dL Aspartate Amino Transf (AST/SGOT) 17 U/L Alanine Aminotransferase (ALT/SGPT) 19 U/L Alkaline Phosphatase 29 U/L Total Protein 6.1 g/dL Albumin 2.9 g/dL Albumin/Globulin Ratio 0.9 Valproic Acid (Depakene) Level 50 mcg/mL Valproic Acid Last Dose Date 03/30/21 Valproic Acid Last Dose Time 2100 Current Medications Medications (Trade) Dose Ordered Sig/Crista Route PRN Reason Start Time Stop Time Status Last Admin Dose Admin Acetaminophen (Tylenol) 650 mg PRN Q6HRS PRN PO MILD PAIN / TEMP > 100.3'F 03/13/21 21:30 Multi-Ingredient Ointment (Analgesic [place]) 1 mikala PRN QID PRN TP MUSCLE PAIN 03/13/21 21:30 Al Hydroxide/Mg Hydroxide (Mylanta Plus Xs) 15 ml PRN AFTMEALHC PRN PO DYSPEPSIA 03/13/21 21:30 Magnesium Hydroxide (Milk Of Magnesia) 2,400 mg PRN QHS PRN PO CONSTIPATION 03/13/21 21:30 Buspirone HCl (Buspar) 10 mg TID PO 03/13/21 22:15 03/17/21 14:18 DC 03/17/21 13:55 Quetiapine Fumarate (SEROquel) 50 mg PRN DAILY PRN PO prior to lab draws 03/13/21 21:45 03/26/21 16:12 Quetiapine Fumarate (SEROquel) 50 mg PRN Q6HRS PRN PO AGITATION 03/13/21 21:45 Quetiapine Fumarate (SEROquel) 100 mg HS PO 03/13/21 22:15 03/31/21 20:01 Trazodone HCl (Desyrel) 150 mg HS PO 03/13/21 22:15 03/31/21 20:01 Melatonin (Melatonin) 6 mg HS PO 03/13/21 22:15 03/31/21 20:02 Allopurinol (Zyloprim) 100 mg BID PO 03/14/21 12:15 03/31/21 20:01 Finasteride (Proscar) 5 mg DAILY PO 03/14/21 12:15 03/31/21 08:03 Furosemide (Lasix) 40 mg DAILY PO 03/14/21 12:15 03/31/21 08:03 Metoprolol Tartrate (Lopressor) 25 mg BID PO 03/14/21 12:15 03/31/21 20:02 Tamsulosin HCl (Flomax) 0.4 mg DAILY PO 03/14/21 12:15 03/31/21 08:03 Pantoprazole Sodium (Protonix) 40 mg DAILYAC PO 03/15/21 07:30 03/31/21 08:03 Polyethylene Glycol (miraLAX) 17 gm DAILY PO 03/14/21 12:00 03/25/21 11:44 DC 03/25/21 10:15 Non-Formulary Medication (Potassium Chloride (Klor-Con 10)) 30 meq DAILY PO 03/15/21 09:00 03/15/21 10:26 DC Rivaroxaban (Xarelto) 20 mg DAILYBFRSUP PO 03/14/21 17:00 03/14/21 17:30 DC Rivaroxaban (Xarelto) 20 mg DAILYBFRSUP PO 03/14/21 17:30 03/31/21 17:20 Olanzapine (ZyPREXA ZYDIS) 2.5 mg PRN Q2HR PRN PO PSYCHOSIS 03/14/21 18:45 03/28/21 20:03 Divalproex Sodium (Depakote Sprinkles) 125 mg BID@0900,1700 PO 03/15/21 21:00 03/20/21 17:56 DC 03/20/21 08:36 Sertraline HCl (Zoloft) 50 mg DAILY PO 03/16/21 09:00 03/31/21 08:03 Divalproex Sodium (Depakote Sprinkles) 250 mg BID@0900,1700 PO 03/20/21 18:00 03/24/21 17:47 DC 03/24/21 17:20 Divalproex Sodium (Depakote Sprinkles) 375 mg BID@0900,1700 PO 03/24/21 18:00 03/28/21 16:19 DC 03/28/21 09:19 Quetiapine Fumarate (SEROquel) 25 mg 0900,1700 PO 03/27/21 09:00 03/31/21 17:19 Divalproex Sodium (Depakote Sprinkles) 500 mg BID@0900,1700 PO 03/28/21 17:00 03/31/21 17:20 I have reviewed the current psychotropics carefully including drug interactions. Risk benefit ratio favors no change other than as noted in my dictated progress note. Diagnosis: Problems: (1) Impulse control disorder, unspecified (2) Anxiety disorder, unspecified (3) Dementia, vascular, with depression (4) Dementia, vascular, with delusions (5) Dementia in Alzheimer's disease with depression (6) Dementia in Alzheimer's disease with delusions (7) Dementia of the Alzheimer's type with early onset with behavioral disturbance (8) Major neurocognitive disorder RONALD MENJIVAR MD Mar 31, 2021 22:11
--- NOTE | 2021-03-31 23:29 | PDOC ---
Exam Note: Kevin Note: This note covers elements not covered in my initial note. Subjective: The patient was seen individually in the evening of 03/31/2021 with Fransico BIRMINGHAM, discussed and reviewed the chart. The patient slept 7 hours previous night. Valproic acid level is 50. He has been resistive for his lab draws, otherwise, better. He still tends to parts picker food items from the trays of other patients during meal time but more redirectable. Review of Systems: No CV, , pulmonary, eye, ENT system symptoms on review. Mental Status Exam: The patient is oriented to himself. Insight and judgment, recent and remote memory, attention and concentration, fund of knowledge is poor consistent with his diagnoses. Laboratory Data: Reviewed. Impression: Major neurocognitive disorder Alzheimer vascular with delusion, depression, behavioral disturbance. Anxiety disorder unspecified. Impulse control disorder unspecified. Plan: No change from initial note. Assessment: Vital Signs/I&O: Vital Signs Date Time Temp Pulse Resp B/P (MAP) Pulse Ox O2 Delivery O2 Flow Rate FiO2 03/31/21 20:02 72 122/62 03/31/21 15:42 97.9 18 97 03/31/21 05:50 Room Air I & O 03/30/21 03/30/21 03/31/21 15:00 23:00 07:00 Intake Total 1320 ml 0 ml 120 ml Balance 1320 ml 0 ml 120 ml Labs: Laboratory Tests Test 03/31/21 10:24 White Blood Count 7.4 x10^3/uL (4.0-11.0) Red Blood Count 4.18 x10^6/uL (4.30-5.70) L Hemoglobin 12.6 g/dL (13.0-17.5) L Hematocrit 37.7 % (39.0-53.0) L Mean Corpuscular Volume 90 fL (79-100) Mean Corpuscular Hemoglobin 30 pg (25-35) Mean Corpuscular Hemoglobin Concent 34 g/dL (31-37) Red Cell Distribution Width 16.4 % (11.5-14.5) H Platelet Count 153 x10^3/uL (140-400) Neutrophils (%) (Auto) 73 % (31-73) Lymphocytes (%) (Auto) 15 % (24-48) L Monocytes (%) (Auto) 10 % (0-9) H Eosinophils (%) (Auto) 2 % (0-3) Basophils (%) (Auto) 1 % (0-3) Neutrophils # (Auto) 5.4 x10^3uL (1.8-7.7) Lymphocytes # (Auto) 1.1 x10^3/uL (1.0-4.8) Monocytes # (Auto) 0.7 x10^3/uL (0.0-1.1) Eosinophils # (Auto) 0.2 x10^3/uL (0.0-0.7) Basophils # (Auto) 0.0 x10^3/uL (0.0-0.2) Sodium Level 148 mmol/L (136-145) H Potassium Level 4.2 mmol/L (3.5-5.1) Chloride Level 110 mmol/L (98-107) H Carbon Dioxide Level 31 mmol/L (21-32) Anion Gap 7 (6-14) Blood Urea Nitrogen 11 mg/dL (8-26) Creatinine 0.8 mg/dL (0.7-1.3) Estimated GFR (Cockcroft-Gault) 93.3 BUN/Creatinine Ratio 14 (6-20) Glucose Level 103 mg/dL (70-99) H Calcium Level 8.7 mg/dL (8.5-10.1) Total Bilirubin 0.7 mg/dL (0.2-1.0) Aspartate Amino Transferase (AST) 17 U/L (15-37) Alanine Aminotransferase (ALT) 19 U/L (16-63) Alkaline Phosphatase 29 U/L (46-116) L Total Protein 6.1 g/dL (6.4-8.2) L Albumin 2.9 g/dL (3.4-5.0) L Albumin/Globulin Ratio 0.9 (1.0-1.7) L Valproic Acid Level 50 mcg/mL (50-100) Valproic Acid Last Dose Date 03/30/21 Valproic Acid Last Dose Time 2100 Current Medications: Meds: Laboratory Tests Test 03/31/21 10:24 White Blood Count 7.4 x10^3/uL Red Blood Count 4.18 x10^6/uL Hemoglobin 12.6 g/dL Hematocrit 37.7 % Mean Corpuscular Volume 90 fL Mean Corpuscular Hemoglobin 30 pg Mean Corpuscular Hemoglobin Concent 34 g/dL Red Cell Distribution Width 16.4 % Platelet Count 153 x10^3/uL Neutrophils (%) (Auto) 73 % Lymphocytes (%) (Auto) 15 % Monocytes (%) (Auto) 10 % Eosinophils (%) (Auto) 2 % Basophils (%) (Auto) 1 % Neutrophils # (Auto) 5.4 x10^3uL Lymphocytes # (Auto) 1.1 x10^3/uL Monocytes # (Auto) 0.7 x10^3/uL Eosinophils # (Auto) 0.2 x10^3/uL Basophils # (Auto) 0.0 x10^3/uL Sodium Level 148 mmol/L Potassium Level 4.2 mmol/L Chloride Level 110 mmol/L Carbon Dioxide Level 31 mmol/L Anion Gap 7 Blood Urea Nitrogen 11 mg/dL Creatinine 0.8 mg/dL Estimated GFR (Cockcroft-Gault) 93.3 BUN/Creatinine Ratio 14 Glucose Level 103 mg/dL Calcium Level 8.7 mg/dL Total Bilirubin 0.7 mg/dL Aspartate Amino Transf (AST/SGOT) 17 U/L Alanine Aminotransferase (ALT/SGPT) 19 U/L Alkaline Phosphatase 29 U/L Total Protein 6.1 g/dL Albumin 2.9 g/dL Albumin/Globulin Ratio 0.9 Valproic Acid (Depakene) Level 50 mcg/mL Valproic Acid Last Dose Date 03/30/21 Valproic Acid Last Dose Time 2100 Current Medications Medications (Trade) Dose Ordered Sig/Crista Route PRN Reason Start Time Stop Time Status Last Admin Dose Admin Acetaminophen (Tylenol) 650 mg PRN Q6HRS PRN PO MILD PAIN / TEMP > 100.3'F 03/13/21 21:30 Multi-Ingredient Ointment (Analgesic [place]) 1 mikala PRN QID PRN TP MUSCLE PAIN 03/13/21 21:30 Al Hydroxide/Mg Hydroxide (Mylanta Plus Xs) 15 ml PRN AFTMEALHC PRN PO DYSPEPSIA 03/13/21 21:30 Magnesium Hydroxide (Milk Of Magnesia) 2,400 mg PRN QHS PRN PO CONSTIPATION 03/13/21 21:30 Buspirone HCl (Buspar) 10 mg TID PO 03/13/21 22:15 03/17/21 14:18 DC 03/17/21 13:55 Quetiapine Fumarate (SEROquel) 50 mg PRN DAILY PRN PO prior to lab draws 03/13/21 21:45 03/26/21 16:12 Quetiapine Fumarate (SEROquel) 50 mg PRN Q6HRS PRN PO AGITATION 03/13/21 21:45 Quetiapine Fumarate (SEROquel) 100 mg HS PO 03/13/21 22:15 03/31/21 20:01 Trazodone HCl (Desyrel) 150 mg HS PO 03/13/21 22:15 03/31/21 20:01 Melatonin (Melatonin) 6 mg HS PO 03/13/21 22:15 03/31/21 20:02 Allopurinol (Zyloprim) 100 mg BID PO 03/14/21 12:15 03/31/21 20:01 Finasteride (Proscar) 5 mg DAILY PO 03/14/21 12:15 03/31/21 08:03 Furosemide (Lasix) 40 mg DAILY PO 03/14/21 12:15 03/31/21 08:03 Metoprolol Tartrate (Lopressor) 25 mg BID PO 03/14/21 12:15 03/31/21 20:02 Tamsulosin HCl (Flomax) 0.4 mg DAILY PO 03/14/21 12:15 03/31/21 08:03 Pantoprazole Sodium (Protonix) 40 mg DAILYAC PO 03/15/21 07:30 03/31/21 08:03 Polyethylene Glycol (miraLAX) 17 gm DAILY PO 03/14/21 12:00 03/25/21 11:44 DC 03/25/21 10:15 Non-Formulary Medication (Potassium Chloride (Klor-Con 10)) 30 meq DAILY PO 03/15/21 09:00 03/15/21 10:26 DC Rivaroxaban (Xarelto) 20 mg DAILYBFRSUP PO 03/14/21 17:00 03/14/21 17:30 DC Rivaroxaban (Xarelto) 20 mg DAILYBFRSUP PO 03/14/21 17:30 03/31/21 17:20 Olanzapine (ZyPREXA ZYDIS) 2.5 mg PRN Q2HR PRN PO PSYCHOSIS 03/14/21 18:45 03/28/21 20:03 Divalproex Sodium (Depakote Sprinkles) 125 mg BID@0900,1700 PO 03/15/21 21:00 03/20/21 17:56 DC 03/20/21 08:36 Sertraline HCl (Zoloft) 50 mg DAILY PO 03/16/21 09:00 03/31/21 08:03 Divalproex Sodium (Depakote Sprinkles) 250 mg BID@0900,1700 PO 03/20/21 18:00 03/24/21 17:47 DC 03/24/21 17:20 Divalproex Sodium (Depakote Sprinkles) 375 mg BID@0900,1700 PO 03/24/21 18:00 03/28/21 16:19 DC 03/28/21 09:19 Quetiapine Fumarate (SEROquel) 25 mg 0900,1700 PO 03/27/21 09:00 03/31/21 17:19 Divalproex Sodium (Depakote Sprinkles) 500 mg BID@0900,1700 PO 03/28/21 17:00 03/31/21 17:20 I have reviewed the current psychotropics carefully including drug interactions. Risk benefit ratio favors no change other than as noted in my dictated progress note. Diagnosis: Problems: (1) Impulse control disorder, unspecified (2) Anxiety disorder, unspecified (3) Dementia, vascular, with depression (4) Dementia, vascular, with delusions (5) Dementia in Alzheimer's disease with depression (6) Dementia in Alzheimer's disease with delusions (7) Dementia of the Alzheimer's type with early onset with behavioral disturbance (8) Major neurocognitive disorder RONALD MENJIVAR MD Mar 31, 2021 23:29
--- NOTE | 2021-04-01 00:54 | NUR ---
Last evening pt wandered the unit or sat in the day room. He would try and take food or drink from peers at times. Meds were given be crushing and putting in drink. He was resistive with meds and has been sleeping since going to bed.
[2021-04-01 05:51] VITALS: BP 148/51
[2021-04-01] MEDS: PANTOPRAZOLE 40 MG TABLET. PO SCH (08:24)
[2021-04-01] MEDS: FINASTERIDE 5 MG TABLET. PO SCH (08:24)
[2021-04-01] MEDS: SERTRALINE 50 MG TABLET. PO SCH (08:24)
[2021-04-01] MEDS: METOPROLOL TART IMMED RELEASE 25 MG TABLET. PO SCH ×2 (08:24→19:44)
[2021-04-01] MEDS: DIVALPROEX 125 MG CAP.SPRINK PO SCH ×2 (08:25→17:33)
[2021-04-01] MEDS: TAMSULOSIN 0.4 MG CAP.ER.24H. PO SCH (08:25)
[2021-04-01] MEDS: ALLOPURINOL 100 MG TABLET. PO SCH ×2 (08:25→19:43)
[2021-04-01] MEDS: FUROSEMIDE 40 MG TABLET PO SCH (08:25)
[2021-04-01] MEDS: QUEtiapine 25 MG TABLET. PO SCH ×2 (08:25→17:34)
[2021-04-01 15:42] VITALS: BP 116/74
[2021-04-01] MEDS: RIVAROXABAN 10 MG TABLET. PO SCH (17:34)
[2021-04-01] MEDS: QUEtiapine 100 MG TABLET. PO SCH (19:43)
[2021-04-01] MEDS: MELATONIN 3 MG TABLET PO SCH (19:44)
[2021-04-01] MEDS: traZODone 150 MG TABLET. PO SCH (19:44)
--- NOTE | 2021-04-01 22:03 | PDOC ---
Exam Note: Kevin Note: Please also refer to the separate dictated note~for this date of service dictated separately.~Patient seen individually. Discussed the patient with Nursing staff reviewed the chart.~Reviewed interim history and current functioning. Reviewed vital signs,~Labs/ Radiology~and current medications noted below. Continue current treatment with the changes noted in the dictated addendum note Assessment: Vital Signs/I&O: Vital Signs Date Time Temp Pulse Resp B/P (MAP) Pulse Ox O2 Delivery O2 Flow Rate FiO2 04/01/21 19:44 82 116/74 04/01/21 15:42 97.7 20 99 03/31/21 05:50 Room Air I & O 03/31/21 03/31/21 04/01/21 15:00 23:00 07:00 Intake Total 1140 ml 840 ml Balance 1140 ml 840 ml Current Medications: Meds: Current Medications Medications (Trade) Dose Ordered Sig/Crista Route PRN Reason Start Time Stop Time Status Last Admin Dose Admin Acetaminophen (Tylenol) 650 mg PRN Q6HRS PRN PO MILD PAIN / TEMP > 100.3'F 03/13/21 21:30 Multi-Ingredient Ointment (Analgesic [place]) 1 mikala PRN QID PRN TP MUSCLE PAIN 03/13/21 21:30 Al Hydroxide/Mg Hydroxide (Mylanta Plus Xs) 15 ml PRN AFTMEALHC PRN PO DYSPEPSIA 03/13/21 21:30 Magnesium Hydroxide (Milk Of Magnesia) 2,400 mg PRN QHS PRN PO CONSTIPATION 03/13/21 21:30 Buspirone HCl (Buspar) 10 mg TID PO 03/13/21 22:15 03/17/21 14:18 DC 03/17/21 13:55 Quetiapine Fumarate (SEROquel) 50 mg PRN DAILY PRN PO prior to lab draws 03/13/21 21:45 03/26/21 16:12 Quetiapine Fumarate (SEROquel) 50 mg PRN Q6HRS PRN PO AGITATION 03/13/21 21:45 Quetiapine Fumarate (SEROquel) 100 mg HS PO 03/13/21 22:15 04/01/21 19:43 Trazodone HCl (Desyrel) 150 mg HS PO 03/13/21 22:15 04/01/21 19:44 Melatonin (Melatonin) 6 mg HS PO 03/13/21 22:15 04/01/21 19:44 Allopurinol (Zyloprim) 100 mg BID PO 03/14/21 12:15 04/01/21 19:43 Finasteride (Proscar) 5 mg DAILY PO 03/14/21 12:15 04/01/21 08:24 Furosemide (Lasix) 40 mg DAILY PO 03/14/21 12:15 04/01/21 08:25 Metoprolol Tartrate (Lopressor) 25 mg BID PO 03/14/21 12:15 04/01/21 19:44 Tamsulosin HCl (Flomax) 0.4 mg DAILY PO 03/14/21 12:15 04/01/21 08:25 Pantoprazole Sodium (Protonix) 40 mg DAILYAC PO 03/15/21 07:30 04/01/21 08:24 Polyethylene Glycol (miraLAX) 17 gm DAILY PO 03/14/21 12:00 03/25/21 11:44 DC 03/25/21 10:15 Non-Formulary Medication (Potassium Chloride (Klor-Con 10)) 30 meq DAILY PO 03/15/21 09:00 03/15/21 10:26 DC Rivaroxaban (Xarelto) 20 mg DAILYBFRSUP PO 03/14/21 17:00 03/14/21 17:30 DC Rivaroxaban (Xarelto) 20 mg DAILYBFRSUP PO 03/14/21 17:30 04/01/21 17:34 Olanzapine (ZyPREXA ZYDIS) 2.5 mg PRN Q2HR PRN PO PSYCHOSIS 03/14/21 18:45 03/28/21 20:03 Divalproex Sodium (Depakote Sprinkles) 125 mg BID@0900,1700 PO 03/15/21 21:00 03/20/21 17:56 DC 03/20/21 08:36 Sertraline HCl (Zoloft) 50 mg DAILY PO 03/16/21 09:00 04/01/21 08:24 Divalproex Sodium (Depakote Sprinkles) 250 mg BID@0900,1700 PO 03/20/21 18:00 03/24/21 17:47 DC 03/24/21 17:20 Divalproex Sodium (Depakote Sprinkles) 375 mg BID@0900,1700 PO 03/24/21 18:00 03/28/21 16:19 DC 03/28/21 09:19 Quetiapine Fumarate (SEROquel) 25 mg 0900,1700 PO 03/27/21 09:00 04/01/21 17:34 Divalproex Sodium (Depakote Sprinkles) 500 mg BID@0900,1700 PO 03/28/21 17:00 04/01/21 17:33 I have reviewed the current psychotropics carefully including drug interactions. Risk benefit ratio favors no change other than as noted in my dictated progress note. 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
--- NOTE | 2021-04-01 22:23 | NUR ---
Magaly pt has been mainly in bed in his room. He took meds crushed in liquid and drank it all after several drinks. He was trying to converse with staff with unintelligible speech. He has had no behaviors tonight.
[2021-04-02] MEDS ORDERED: ACET325T21 PO (00:22)
[2021-04-02] MEDS ORDERED: DIVA125C2 PO (00:25)
[2021-04-02] MEDS ORDERED: MAG30ORA2 PO (00:26)
[2021-04-02] MEDS ORDERED: MAGN24003 PO (00:26)
[2021-04-02] MEDS ORDERED: OLAN5TAB99 PO (00:28)
[2021-04-02] MEDS ORDERED: TROL86CR TP (00:28)
[2021-04-02] MEDS ORDERED: QUET25TA5 PO (00:30)
[2021-04-02] MEDS ORDERED: SERT50TA PO (00:30)
[2021-04-02 06:27] VITALS: BP 125/72
[2021-04-02] MEDS: PANTOPRAZOLE 40 MG TABLET. PO SCH (07:30)
[2021-04-02 08:48] VITALS: BP 125/72
[2021-04-02] MEDS: FINASTERIDE 5 MG TABLET. PO SCH (08:48)
[2021-04-02] MEDS: TAMSULOSIN 0.4 MG CAP.ER.24H. PO SCH (08:48)
[2021-04-02] MEDS: FUROSEMIDE 40 MG TABLET PO SCH (08:48)
[2021-04-02] MEDS: QUEtiapine 25 MG TABLET. PO SCH (08:48)
[2021-04-02] MEDS: DIVALPROEX 125 MG CAP.SPRINK PO SCH (08:48)
[2021-04-02] MEDS: METOPROLOL TART IMMED RELEASE 25 MG TABLET. PO SCH (08:48)
[2021-04-02] MEDS: SERTRALINE 50 MG TABLET. PO SCH (08:49)
[2021-04-02] MEDS: ALLOPURINOL 100 MG TABLET. PO SCH (08:49)
--- NOTE | 2021-04-02 09:22 | NUR ---
Pt wanders about the hallway this morning. He has been found napping in another patient's bed. He is compliant with medications crushed and mixed in chocolate milk. He remains very confused and disorganized, A&O to self only. His speech is garbled and difficult to understand. He is absent of aggressive behaviors towards staff or other patients at this time. Plan of care continues, preparing for d/c.
--- NOTE | 2021-04-02 12:32 | NUR ---
Pt preparing for d/c at approx 1300. PRN Zyprexa 2.5 mg PO and PRN Seroquel 50 mg PO administered to reduce anxiety/agitation for the traveling.
--- NOTE | 2021-04-02 13:20 | NUR ---
Transition Record was faxed to follow-up provider with the following elements: Reason for admission, procedures, tests, principal diagnosis, pending studies, patient instructions, 09/05 contact information for unit, phone number to obtain pending test results, plan for follow-up care, physician follow-up, advanced directive information, and medication list with dose, duration and instructions. This information was included in the following documents: History and physical, lab results, study results, progress notes, social work planning form, DC instruction form, patient visit summary, and medication reconciliation form. Date & time record faxed:04/02/21 0110 Record faxed to: Eligio Johns Record discussed with/ report given to: Jessica WREN
--- NOTE | 2021-04-02 22:11 | PDOC ---
Exam Note: Kevin Note: Please also refer to the separate dictated note~for this date of service dictated separately.~Patient seen individually. Discussed the patient with Nursing staff reviewed the chart.~Reviewed interim history and current functioning. Reviewed vital signs,~Labs/ Radiology~and current medications noted below. Continue current treatment with the changes noted in the dictated addendum note Assessment: Vital Signs/I&O: Vital Signs Date Time Temp Pulse Resp B/P (MAP) Pulse Ox O2 Delivery O2 Flow Rate FiO2 04/02/21 08:48 80 125/72 04/02/21 06:27 97.6 14 98 03/31/21 05:50 Room Air I & O 04/01/21 04/01/21 04/02/21 15:00 23:00 07:00 Intake Total 1320 ml 720 ml Balance 1320 ml 720 ml Current Medications: Meds: Current Medications Medications (Trade) Dose Ordered Sig/Crista Route PRN Reason Start Time Stop Time Status Last Admin Dose Admin Acetaminophen (Tylenol) 650 mg PRN Q6HRS PRN PO MILD PAIN / TEMP > 100.3'F 03/13/21 21:30 04/02/21 13:23 DC Multi-Ingredient Ointment (Analgesic [place]) 1 mikala PRN QID PRN TP MUSCLE PAIN 03/13/21 21:30 04/02/21 13:23 DC Al Hydroxide/Mg Hydroxide (Mylanta Plus Xs) 15 ml PRN AFTMEALHC PRN PO DYSPEPSIA 03/13/21 21:30 04/02/21 13:23 DC Magnesium Hydroxide (Milk Of Magnesia) 2,400 mg PRN QHS PRN PO CONSTIPATION 03/13/21 21:30 04/02/21 13:23 DC Buspirone HCl (Buspar) 10 mg TID PO 03/13/21 22:15 03/17/21 14:18 DC 03/17/21 13:55 Quetiapine Fumarate (SEROquel) 50 mg PRN DAILY PRN PO prior to lab draws 03/13/21 21:45 04/02/21 13:23 DC 03/26/21 16:12 Quetiapine Fumarate (SEROquel) 50 mg PRN Q6HRS PRN PO AGITATION 03/13/21 21:45 04/02/21 13:23 DC 04/02/21 12:31 Quetiapine Fumarate (SEROquel) 100 mg HS PO 03/13/21 22:15 04/02/21 13:23 DC 04/01/21 19:43 Trazodone HCl (Desyrel) 150 mg HS PO 03/13/21 22:15 04/02/21 13:23 DC 04/01/21 19:44 Melatonin (Melatonin) 6 mg HS PO 03/13/21 22:15 04/02/21 13:23 DC 04/01/21 19:44 Allopurinol (Zyloprim) 100 mg BID PO 03/14/21 12:15 04/02/21 13:23 DC 04/02/21 08:49 Finasteride (Proscar) 5 mg DAILY PO 03/14/21 12:15 04/02/21 13:23 DC 04/02/21 08:48 Furosemide (Lasix) 40 mg DAILY PO 03/14/21 12:15 04/02/21 13:23 DC 04/02/21 08:48 Metoprolol Tartrate (Lopressor) 25 mg BID PO 03/14/21 12:15 04/02/21 13:23 DC 04/02/21 08:48 Tamsulosin HCl (Flomax) 0.4 mg DAILY PO 03/14/21 12:15 04/02/21 13:23 DC 04/02/21 08:48 Pantoprazole Sodium (Protonix) 40 mg DAILYAC PO 03/15/21 07:30 04/02/21 13:23 DC 04/02/21 07:30 Polyethylene Glycol (miraLAX) 17 gm DAILY PO 03/14/21 12:00 03/25/21 11:44 DC 03/25/21 10:15 Non-Formulary Medication (Potassium Chloride (Klor-Con 10)) 30 meq DAILY PO 03/15/21 09:00 03/15/21 10:26 DC Rivaroxaban (Xarelto) 20 mg DAILYBFRSUP PO 03/14/21 17:00 03/14/21 17:30 DC Rivaroxaban (Xarelto) 20 mg DAILYBFRSUP PO 03/14/21 17:30 04/02/21 13:23 DC 04/01/21 17:34 Olanzapine (ZyPREXA ZYDIS) 2.5 mg PRN Q2HR PRN PO PSYCHOSIS 03/14/21 18:45 04/02/21 13:23 DC 04/02/21 12:31 Divalproex Sodium (Depakote Sprinkles) 125 mg BID@0900,1700 PO 03/15/21 21:00 03/20/21 17:56 DC 03/20/21 08:36 Sertraline HCl (Zoloft) 50 mg DAILY PO 03/16/21 09:00 04/02/21 13:23 DC 04/02/21 08:49 Divalproex Sodium (Depakote Sprinkles) 250 mg BID@0900,1700 PO 03/20/21 18:00 03/24/21 17:47 DC 03/24/21 17:20 Divalproex Sodium (Depakote Sprinkles) 375 mg BID@0900,1700 PO 03/24/21 18:00 03/28/21 16:19 DC 03/28/21 09:19 Quetiapine Fumarate (SEROquel) 25 mg 0900,1700 PO 03/27/21 09:00 04/02/21 13:23 DC 04/02/21 08:48 Divalproex Sodium (Depakote Sprinkles) 500 mg BID@0900,1700 PO 03/28/21 17:00 04/02/21 13:23 DC 04/02/21 08:48 I have reviewed the current psychotropics carefully including drug interactions. Risk benefit ratio favors no change other than as noted in my dictated progress note. Diagnosis: Problems: (1) Major neurocognitive disorder due to Alzheimer's disease (2) Impulse control disorder, unspecified (3) Anxiety disorder, unspecified (4) Dementia, vascular, with depression (5) Dementia, vascular, with delusions (6) Dementia in Alzheimer's disease with depression (7) Dementia in Alzheimer's disease with delusions (8) Dementia of the Alzheimer's type with early onset with behavioral disturbance RONALD MENJIVAR MD Apr 02, 2021 22:11
--- NOTE | 2021-04-03 08:28 | PDOC ---
Exam Note: Kevin Note: This note is a late entry for 04/01/2021 covers elements not covered in my initial note. Subjective: The patient was seen individually in the evening of 04/01/2021 with Fransico [place], discussed and reviewed the chart. The patient slept 6-1/4 hours previous night. He remains confused, wandering the hallways, going into other patients rooms but redirects. He is oblivious to what he is doing. Review of Systems: No CV, , pulmonary, eye, ENT system symptoms on review. Mental Status Exam: The patient is oriented to himself. Insight and judgment, recent and remote memory, attention and concentration, fund of knowledge is poor consistent with his diagnoses. Laboratory Data: Reviewed. Impression: Major neurocognitive disorder Alzheimer vascular with delusion, depression, behavioral disturbance. Anxiety disorder unspecified. Impulse control disorder unspecified. Plan: No change from initial note. Make further adjustments as clinically indicated. Discharge possibly on 04/02. Assessment: Vital Signs/I&O: Vital Signs Date Time Temp Pulse Resp B/P (MAP) Pulse Ox O2 Delivery O2 Flow Rate FiO2 04/02/21 08:48 80 125/72 04/02/21 06:27 97.6 14 98 03/31/21 05:50 Room Air I & O 04/02/21 04/02/21 04/03/21 15:00 23:00 07:00 Intake Total 480 ml Balance 480 ml Current Medications: Meds: Current Medications Medications (Trade) Dose Ordered Sig/Crista Route PRN Reason Start Time Stop Time Status Last Admin Dose Admin Acetaminophen (Tylenol) 650 mg PRN Q6HRS PRN PO MILD PAIN / TEMP > 100.3'F 03/13/21 21:30 04/02/21 13:23 DC Multi-Ingredient Ointment (Analgesic [place]) 1 mikala PRN QID PRN TP MUSCLE PAIN 03/13/21 21:30 04/02/21 13:23 DC Al Hydroxide/Mg Hydroxide (Mylanta Plus Xs) 15 ml PRN AFTMEALHC PRN PO DYSPEPSIA 03/13/21 21:30 04/02/21 13:23 DC Magnesium Hydroxide (Milk Of Magnesia) 2,400 mg PRN QHS PRN PO CONSTIPATION 03/13/21 21:30 04/02/21 13:23 DC Buspirone HCl (Buspar) 10 mg TID PO 03/13/21 22:15 03/17/21 14:18 DC 03/17/21 13:55 Quetiapine Fumarate (SEROquel) 50 mg PRN DAILY PRN PO prior to lab draws 03/13/21 21:45 04/02/21 13:23 DC 03/26/21 16:12 Quetiapine Fumarate (SEROquel) 50 mg PRN Q6HRS PRN PO AGITATION 03/13/21 21:45 04/02/21 13:23 DC 04/02/21 12:31 Quetiapine Fumarate (SEROquel) 100 mg HS PO 03/13/21 22:15 04/02/21 13:23 DC 04/01/21 19:43 Trazodone HCl (Desyrel) 150 mg HS PO 03/13/21 22:15 04/02/21 13:23 DC 04/01/21 19:44 Melatonin (Melatonin) 6 mg HS PO 03/13/21 22:15 04/02/21 13:23 DC 04/01/21 19:44 Allopurinol (Zyloprim) 100 mg BID PO 03/14/21 12:15 04/02/21 13:23 DC 04/02/21 08:49 Finasteride (Proscar) 5 mg DAILY PO 03/14/21 12:15 04/02/21 13:23 DC 04/02/21 08:48 Furosemide (Lasix) 40 mg DAILY PO 03/14/21 12:15 04/02/21 13:23 DC 04/02/21 08:48 Metoprolol Tartrate (Lopressor) 25 mg BID PO 03/14/21 12:15 04/02/21 13:23 DC 04/02/21 08:48 Tamsulosin HCl (Flomax) 0.4 mg DAILY PO 03/14/21 12:15 04/02/21 13:23 DC 04/02/21 08:48 Pantoprazole Sodium (Protonix) 40 mg DAILYAC PO 03/15/21 07:30 04/02/21 13:23 DC 04/02/21 07:30 Polyethylene Glycol (miraLAX) 17 gm DAILY PO 03/14/21 12:00 03/25/21 11:44 DC 03/25/21 10:15 Non-Formulary Medication (Potassium Chloride (Klor-Con 10)) 30 meq DAILY PO 03/15/21 09:00 03/15/21 10:26 DC Rivaroxaban (Xarelto) 20 mg DAILYBFRSUP PO 03/14/21 17:00 03/14/21 17:30 DC Rivaroxaban (Xarelto) 20 mg DAILYBFRSUP PO 03/14/21 17:30 04/02/21 13:23 DC 04/01/21 17:34 Olanzapine (ZyPREXA ZYDIS) 2.5 mg PRN Q2HR PRN PO PSYCHOSIS 03/14/21 18:45 04/02/21 13:23 DC 04/02/21 12:31 Divalproex Sodium (Depakote Sprinkles) 125 mg BID@0900,1700 PO 03/15/21 21:00 03/20/21 17:56 DC 03/20/21 08:36 Sertraline HCl (Zoloft) 50 mg DAILY PO 03/16/21 09:00 04/02/21 13:23 DC 04/02/21 08:49 Divalproex Sodium (Depakote Sprinkles) 250 mg BID@0900,1700 PO 03/20/21 18:00 03/24/21 17:47 DC 03/24/21 17:20 Divalproex Sodium (Depakote Sprinkles) 375 mg BID@0900,1700 PO 03/24/21 18:00 03/28/21 16:19 DC 03/28/21 09:19 Quetiapine Fumarate (SEROquel) 25 mg 0900,1700 PO 03/27/21 09:00 04/02/21 13:23 DC 04/02/21 08:48 Divalproex Sodium (Depakote Sprinkles) 500 mg BID@0900,1700 PO 03/28/21 17:00 04/02/21 13:23 DC 04/02/21 08:48 I have reviewed the current psychotropics carefully including drug interactions. Risk benefit ratio favors no change other than as noted in my dictated progress note. Diagnosis: Problems: (1) Impulse control disorder, unspecified (2) Anxiety disorder, unspecified (3) Dementia, vascular, with depression (4) Dementia, vascular, with delusions (5) Dementia in Alzheimer's disease with depression (6) Dementia in Alzheimer's disease with delusions (7) Dementia of the Alzheimer's type with early onset with behavioral disturbance (8) Major neurocognitive disorder RONALD MENJIVAR MD Apr 03, 2021 08:28
--- NOTE | 2021-04-04 21:39 | DS ---
DATE OF DISCHARGE: 04/02/2021 This late entry, date of service 04/02/2021 covers the elements not covered in my initial note. REASON FOR ADMISSION: Please refer to the admission history for details. Briefly, the patient is a 80-year-old male referred to us from [facility] where he presented from [facility] on account of worsening confusion, agitation, aggressive, combative behaviors, specifically with cares. He was having sundowning, was impulsive, had poor safety awareness, refusing medications and vital signs. Behaviors were deemed dangerous, unmanageable at the facility, had failed outpatient psychiatric interventions resulting in this referral. SIGNIFICANT FINDINGS AND CLINICAL COURSE: Following admission, the patient was seen daily individually by myself from a psychiatric standpoint, medical followup with Dr. Oneal/Dr. Lund. The patient was extremely confused, agitated, paranoid, aggressive, impulsive. Adjustments were made in his psychotropics and he seemed to respond to a combination of Depakote sprinkles 500 mg b.i.d. with a Valproic acid level therapeutic at 50. Zoloft was 50 mg a day; melatonin 6 mg at bedtime; Seroquel 25 mg 0900, 1700 and 100 mg at bedtime; trazodone 150 mg at bedtime; Seroquel p.r.n. 50 mg q. 6 hours; and Zyprexa p.r.n. REVIEW OF SYSTEMS: Prior to discharge on 04/02/2021, no CV, , pulmonary, eye, ENT system symptoms on review. Reliability poor. MENTAL STATUS EXAM: Oriented to himself. Insight, judgment, recent and remote memory, attention, concentration, fund of knowledge poor consistent with his diagnoses. FINAL DIAGNOSES: Major neurocognitive disorder, Alzheimer's, vascular with delusion; depression; behavioral disturbance; anxiety disorder, unspecified; impulse control disorder, unspecified. Rest unchanged from admission. DISCHARGE MEDICATIONS: Please refer to the MRAD. DISCHARGE INSTRUCTIONS: Outpatient psychiatric and medical followup at the [facility]. TALIB/MATEO DR: Nazario TID: [id number]
== END 2021-04-02 13:00 | DRG 57 ==
LOC: GEROPSY 19:45
PROVIDERS: ADMIT Psychiatry & Neurology Psychiatry; ATTEND Psychiatry & Neurology Psychiatry
DX: G30.9 Alzheimer's disease, unspecified (principal); F01.51 Vascular dementia, unspecified severity, with behavioral disturbance; F02.81 Dementia in other diseases classified elsewhere, unspecified severity, with behavioral disturbance; I48.21 Permanent atrial fibrillation; F63.9 Impulse disorder, unspecified; E78.5 Hyperlipidemia, unspecified; F32.9 Major depressive disorder, single episode, unspecified; F41.9 Anxiety disorder, unspecified; I10 Essential (primary) hypertension; M19.90 Unspecified osteoarthritis, unspecified site; N40.0 Benign prostatic hyperplasia without lower urinary tract symptoms; E55.9 Vitamin D deficiency, unspecified; G47.30 Sleep apnea, unspecified; Z66 Do not resuscitate; Z79.899 Other long term (current) drug therapy; Z86.73 Personal history of transient ischemic attack (TIA), and cerebral infarction without residual deficits; Z91.81 History of falling; Z95.0 Presence of cardiac pacemaker
CPT/HCPCS: 36415; 80053; 80061; 80164; 82306; 82607; 83036; 83540; 83550; 83735; 84436; 84443; 84480; 85025; 85379; 86592; 97530